=== PATIENT | female | born 1955 | race African-American/Black ===

== ENCOUNTER → 2016-08-03 | Outpatient (CLI) | payer OTHER ==
[2016-08-03] VITALS (8 sets, daily range): BP systolic 93–148; BP diastolic 60–81
[~2016-08-03] VITALS: Ht 165.1 cm; Wt 92.5 kg
[~2016-08-03] MED LIST: ALBU8.5H6 INH; CARV3.12 PO; CELE200C PO; CHOL10003 PO; DOCU-27 PO; FAMOTIDINE 20 MG/2 ML VIAL IVP ONE; FAMOTIDINE 20 MG/2 ML VIAL ONE; FURO40TA4 PO; HYDR-2666 PO; IBUP-1027 PO; IBUP-1060 PO; IBUP200T77 PO; IOHEXOL 300 MG/ML 100ML VIAL. IART ONE; IOHEXOL 300 MG/ML 100ML VIAL. ONE; IV 1/2 NORMAL SALINE 1,000 ML IV SCH; LIDOCAINE 2% 20 ML VIAL. IJ ONE; LIDOCAINE 2% 20 ML VIAL. ONE; LOSA50TA6 PO; METF500T4 PO; MIDAZOLAM HCL/PF 5 MG/5 ML VIAL. IV ONE; MIDAZOLAM HCL/PF 5 MG/5 ML VIAL. ONE; MULT-460 PO; Methocarbamol PO; NAPR500T3 PO; NITROGLYCERIN SUBLINGUAL 0.4 MG BOTTLE OF 25. SL PRN; OMEG1CAP38 PO; OXYC10TA PO; Oxycodone Hcl/Acetaminophen PO; POTASSIUM CHLO10 MEQ PO; TRIA15CR2 TP; TRIA1TAB3 PO; UBID100T5 PO; WARF-78 PO; diphenhydrAMINE 50 MG/ML VIAL IVP ONE; diphenhydrAMINE 50 MG/ML VIAL ONE; fentaNYL PF VIAL 250 MCG/5 ML VIAL IV ONE; fentaNYL PF VIAL 250 MCG/5 ML VIAL ONE; hormone troche; methylPREDNISolone SOD SUCC PF 125 MG/2 ML VIAL. IV ONE; methylPREDNISolone SOD SUCC PF 125 MG/2 ML VIAL. ONE
[2016-08-03 09:34] LABS: HEMATOCRIT 42.4 % (36.0-47.0); HEMOGLOBIN 14.9 g/dL (12.0-15.5); RED BLOOD COUNT 4.41 x10^6/uL (3.50-5.40); RED CELL DISTRIBUTION WIDTH 12.9 % (11.5-14.5); WHITE BLOOD COUNT 7.1 x10^3/uL (4.0-11.0)
[2016-08-03 09:56] LABS: PROTHROMBIN TIME PATIENT 12.7 SEC (11.7-14.0)
[2016-08-03 10:04] LABS: CALCIUM 9.5 mg/dL (8.5-10.1); CREATININE 0.6 mg/dL (0.6-1.0); GFR 123.8; POTASSIUM 3.8 mmol/L (3.5-5.1)
--- NOTE | 2016-08-03 12:35 | PDOC ---
MODERATE SEDATION ASSESSMENT RISKS/ALTERNATIVES Risks/Alternatives Risks and alternatives of this type of sedation and procedure discussed with: RISK/ALTERNATIVES: Patient H & P ON CHART H & P H & P on chart and reviewed for co-morbid conditions and appropriate labs. H&P ON CHART: Yes STATUS PREG STATUS ASSESSED: N/A MEDS/ALLERGIES REVIEWED Meds/Allergies Reviewed Medications and Allergies including time and route of recently administered narcotics and sedatives. MEDS/ALLERGIES REVIEWED: Yes ASA RATING ASA RATING: II AIRWAY ASSESSMENT Airway Assessment Airway patency, oral function limitations, presence of caps, crowns, dentures, partials, and ability to extend neck assessed. AIRWAY ASSESSMENT: Yes MALLAMPATI SCORE MALLAMPATI SCORE: II PRE-SEDATION ASSESSMENT PRE-SEDATION ASSESSMENT: Yes ROBERTO SHAIKH MD August 03, 2016 12:35
--- NOTE | 2016-08-03 12:50 | CARD ---
APPROVED REPORT Procedure(s) performed: Right and left heart catheterization, selective coronary angiography and left ventriculography INDICATION The indication(s) include : Dyspnea on exertion concerning for unstable angina, cardiomyopathy. PROCEDURE NARRATIVE After explaining the risks, benefits and alternative options, informed consent was obtained from danita ent. Patient brought to the cardiac [facility] and her right groin was prepped and draped in the usual fashion. 20 mL of 2% lidocaine was infiltrated into the skin and subcutaneous tissues for local anest hesia. Arterial and venous accesses were obtained in the right common femoral artery and vein respect ively and 6 and 8 Togolese sheaths were inserted. A 7.5 Togolese Kent-Danica catheter was advanced through the venous sheath under fluoroscopic guidance and intracardiac pressures, oxygen saturations and card iac output by thermodilution method were recorded. Subsequently, 6 Togolese JL 4 and 6 Togolese JR4 lelia ters were advanced through the arterial sheath and selective angiography of the left and right smith ry arteries was performed. Finally, 6 Togolese pigtail catheter was used to perform left ventriculograp hy. Patient tolerated the procedure well. Hemostasis in the right groin was achieved using Angio-Seal and manual compression. There were no immediate complications. FINDINGS A. RIGHT HEART CATHETERIZATION 1. Intracardiac Pressures: Mean right atrial pressure 8 mmHg, right ventricular pressure 43/6 mmHg, mean primary H pressure 12 mmHg, pulmonary artery pressure 34/18 mmHg, mean PA pressure 25 mm Hg. 2. Oxygen saturation: Right atrium 69%, pulmonary artery 68.6%, femoral arterial sheath 93.6%. No e vidence of intracardiac shunt. 3. Cardiac output by thermodilution method 6.15 L/m. B. LEFT HEART CATHETERIZATION 1. Hemodynamics: Left ventricle end diastolic pressure 14 mmHg. No pullback gradient across the aort ic valve. 2. Left ventriculography: Diaphragmatic wall hypokinesis with ejection fraction estimated at 40-45% . No significant mitral regurgitation seen. 3. Coronary angiography: a. The left main coronary artery arose from the left sinus of Valsalva, gave rise to the left anteri or descending and left circumflex arteries and did not show any significant stenosis. b. The left anterior descending artery did not show any significant stenosis. c. The left circumflex artery was a large and dominant vessel that did not show any significant sten osis. d. The right coronary artery was a small and nondominant vessel that did not show any significant st enosis. Conclusion 1. No significant coronary artery disease. 2. Diaphragmatic wall hypokinesis with ejection fraction estimated at 40-45%. 3. No evidence of pulmonary hypertension or intracardiac shunt. Recommendations Cardiac Risk Reduction Program Medical Therapy
== END | disposition home or self-care (01) ==
LOC: CCL 09:05
PROVIDERS: ATTEND Internal Medicine Cardiovascular Disease
DX: I20.0 Unstable angina (principal); I11.9 Hypertensive heart disease without heart failure; Z86.73 Personal history of transient ischemic attack (TIA), and cerebral infarction without residual deficits; E78.00 Pure hypercholesterolemia, unspecified; J45.909 Unspecified asthma, uncomplicated; K21.9 Gastro-esophageal reflux disease without esophagitis; M19.90 Unspecified osteoarthritis, unspecified site; E11.9 Type 2 diabetes mellitus without complications; F41.9 Anxiety disorder, unspecified; I73.9 Peripheral vascular disease, unspecified; Z90.49 Acquired absence of other specified parts of digestive tract; Z90.710 Acquired absence of both cervix and uterus; Z90.722 Acquired absence of ovaries, bilateral; Z79.01 Long term (current) use of anticoagulants
CPT/HCPCS: 36415; 80048; 85027; 85610; 85730; 93453; C1769; C1771; C1773; C1892; J1200; J2250; J2930; J3010; Q9967; S0028; 62321; 62323; G0269

== ENCOUNTER → 2017-08-31 | Outpatient (CLI) | payer OTHER | END | disposition home or self-care (01) | LOC: ECHO 10:35 | DX: I42.9 Cardiomyopathy, unspecified (principal) | CPT/HCPCS: 93306 ==

== ENCOUNTER → 2018-02-03 | Outpatient (CLI) | payer MEDICARE, OTHER ==
[2016-08-03 14:04] VITALS: BP 132/68
[~2018-02-03] MED LIST changes: +DOCU-109 PO; -DOCU-27 PO; -FAMOTIDINE 20 MG/2 ML VIAL IVP ONE; -FAMOTIDINE 20 MG/2 ML VIAL ONE; -HYDR-2666 PO; +HYDR-2758 PO; -IOHEXOL 300 MG/ML 100ML VIAL. IART ONE; -IOHEXOL 300 MG/ML 100ML VIAL. ONE; -IV 1/2 NORMAL SALINE 1,000 ML IV SCH; -LIDOCAINE 2% 20 ML VIAL. IJ ONE; -LIDOCAINE 2% 20 ML VIAL. ONE; -LOSA50TA6 PO; +LOSA50TA7 PO; +METF500T16 PO; -METF500T4 PO; -MIDAZOLAM HCL/PF 5 MG/5 ML VIAL. IV ONE; -MIDAZOLAM HCL/PF 5 MG/5 ML VIAL. ONE; +NAPR-514 PO; -NAPR500T3 PO; -NITROGLYCERIN SUBLINGUAL 0.4 MG BOTTLE OF 25. SL PRN; +POTA10TA12 PO; -POTASSIUM CHLO10 MEQ PO; -diphenhydrAMINE 50 MG/ML VIAL IVP ONE; -diphenhydrAMINE 50 MG/ML VIAL ONE; -fentaNYL PF VIAL 250 MCG/5 ML VIAL IV ONE; -fentaNYL PF VIAL 250 MCG/5 ML VIAL ONE; -methylPREDNISolone SOD SUCC PF 125 MG/2 ML VIAL. IV ONE; -methylPREDNISolone SOD SUCC PF 125 MG/2 ML VIAL. ONE
--- NOTE | 2018-02-03 16:35 | CARD ---
MR#: [id number] Date of Study: 02/03/2018 Ordering Physician: ZA GRIJALVA, Referring Physician: ZA GRIJALVA, Tech: Kendal Wood APPROVED REPORT EXAM: Two-dimensional and M-mode echocardiogram with Doppler and color Doppler. Other Information Quality : AverageHR: 82bpm INDICATION Hypertension/HCVD RISK FACTORS Diabetes Edema 2D DIMENSIONS RVDd2.2 (2.9-3.5cm)Left Atrium(2D)4.0 (1.6-4.0cm) IVSd1.2 (0.7-1.1cm)Aortic Root(2D)3.1 (2.0-3.7cm) LVDd5.0 (3.9-5.9cm)LVOT Diameter2.2 (1.8-2.4cm) PWd1.3 (0.7-1.1cm)LVDs3.6 (2.5-4.0cm) FS (%) 28.5 %SV65.1 ml Aortic Valve AoV Peak Emmanuel.134.0cm/sAoV VTI25.8cm AO Peak GR.7.2mmHgLVOT Peak Emmanuel.88.2cm/s LVOT VTI 18.95cmAO Mean GR.4mmHg LADONNA (VMAX)1.90am0PQR (VTI)2.68cm2 Mitral Valve MV E Ibpuzoxv565.2cm/sMV DECEL [id number] MV A Abosrxqa322.9cm/sMV GKB90vo E/A Ratio0.9MVA (PHT)4.69cm2 TDI E/Lateral E'13.5E/Medial E'14.6 Pulmonary Valve PV Peak Wplgkntl75.0cm/sPV Peak Grad.2mmHg Tricuspid Valve TR P. Lmgviyuj060dg/sRAP YMRFXLTH2yhRc TR Peak Gr.35vuIyHADE22ofUt Pulmonary Vein S1 Ivxazije72.1cm/sD2 Uqthsnmd52.4cm/s PVa bixwxepk593wddo LEFT VENTRICLE The left ventricle is normal size. There is borderline to mild concentric left ventricular hypertroph y. The left ventricular systolic function is normal and the ejection fraction is within normal range. The Ejection Fraction is 50-55%. There is normal LV segmental wall motion. Transmitral Doppler flow pattern is Grade I-abnormal relaxation pattern. RIGHT VENTRICLE The right ventricle is normal size. There is normal right ventricular wall thickness. The right ventr icular systolic function is normal. ATRIA The left atrium size is normal. The right atrium size is normal. The interatrial septum is intact wit h no evidence for an atrial septal defect or patent foramen ovale as noted on 2-D or Doppler imaging. AORTIC VALVE The aortic valve is not well visualized. Doppler and Color Flow revealed trace aortic regurgitation. There is no significant aortic valvular stenosis. MITRAL VALVE The mitral valve is normal in structure and function. Doppler and Color-flow revealed trace mitral re gurgitation. TRICUSPID VALVE The tricuspid valve is not well visualized. Doppler and Color Flow revealed trace tricuspid regurgita tion. PULMONIC VALVE The pulmonic valve is not well visualized. Doppler and Color Flow revealed trace pulmonic valvular re gurgitation. GREAT VESSELS The aortic root is normal in size. Normal pulmonary venous flow (Doppler). The IVC was not visualized . PERICARDIAL EFFUSION There is no evidence of significant pericardial effusion. Critical Notification Critical Value: No <Conclusion> The left ventricle is normal size. The left ventricular systolic function is normal and the ejection fraction is within normal range. The Ejection Fraction is 50-55%. There is borderline to mild concentric left ventricular hypertrophy. There is no significant aortic valvular stenosis. Doppler and Color Flow revealed trace aortic regurgitation. Doppler and Color-flow revealed trace mitral regurgitation. Doppler and Color Flow revealed trace tricuspid regurgitation. Signed by : Arjun Sanchez MD Electronically Approved : 02/03/2018 16:35:01
== END | disposition home or self-care (01) ==
LOC: ECHO 12:57
PROVIDERS: ATTEND General Practice
DX: I11.9 Hypertensive heart disease without heart failure (principal); E11.9 Type 2 diabetes mellitus without complications
CPT/HCPCS: 93306

== ENCOUNTER → 2019-08-06 | Outpatient (CLI) | payer MEDICARE, OTHER ==
[2016-08-03 14:04] VITALS: BP 132/68
[~2019-08-06] MED LIST changes: -HYDR-2758 PO; +HYDR-2761 PO; +LOSA-73 PO; -LOSA50TA7 PO
--- NOTE | 2019-08-06 12:11 | CARD ---
MR#: [id number] Date of Study: 08/06/2019 Ordering Physician: ROBERTO SHAIKH, Referring Physician: ROBERTO SHAIKH Tech: Sandie Forde RDCS APPROVED REPORT EXAM: Two-dimensional and M-mode echocardiogram with Doppler and color Doppler. Other Information Quality : Technically Limited Technically limited study due to body habitus INDICATION Hypertension/HCVD Pre-Op 2D DIMENSIONS RVDd2.6 (2.9-3.5cm)Left Atrium(2D)4.3 (1.6-4.0cm) IVSd0.9 (0.7-1.1cm)Aortic Root(2D)2.8 (2.0-3.7cm) LVDd5.2 (3.9-5.9cm)LVOT Diameter1.9 (1.8-2.4cm) PWd1.0 (0.7-1.1cm)LVDs4.4 (2.5-4.0cm) FS (%) 15.8 %SV43.3 ml Aortic Valve AoV Peak Emmanuel.99.4cm/sAoV VTI20.2cm AO Peak GR.4.0mmHgLVOT Peak Emmanuel.80.8cm/s AO Mean GR.2mmHgAVA (VMAX)2.20cm2 LADONNA (VTI)2.50cm2 Mitral Valve MV E Hyvfngkd55.6cm/sMV DECEL FWWG757bo MV A Spiwcmff516.1cm/sE/A Ratio0.9 Tricuspid Valve TR P. Pauwvydg043fl/sRAP VBBHGRLH8xsCh TR Peak Gr.11ogQsRZMR00xqCc Pulmonary Vein S1 Maieteos30.1cm/sD2 Abqjsedi32.8cm/s LEFT VENTRICLE The left ventricle is normal size. There is normal left ventricular wall thickness. Left ventricle sy stolic function is low normal. The Ejection Fraction is 50%. There is normal LV segmental wall motion . Transmitral Doppler flow pattern is Grade I-abnormal relaxation pattern. RIGHT VENTRICLE The right ventricle is normal size. The right ventricular systolic function is normal. ATRIA The left atrium is mildly dilated. The right atrium size is normal. The interatrial septum is intact with no evidence for an atrial septal defect or patent foramen ovale as noted on 2-D or Doppler imagi ng. AORTIC VALVE The aortic valve is not well visualized but appears to be functioning normally by Doppler interrogati on. Doppler and Color Flow revealed no significant aortic regurgitation. There is no significant aort ic valvular stenosis. MITRAL VALVE The mitral valve is mildly thickened but opens well. There is no evidence of mitral valve prolapse. T here is no mitral valve stenosis. Doppler and Color-flow revealed trace to mild mitral regurgitation. TRICUSPID VALVE The tricuspid valve is normal in structure and function. Doppler and Color Flow revealed trace tricus pid regurgitation. The PA pressure was estimated at 25 mmHg. There is no tricuspid valve stenosis. PULMONIC VALVE The pulmonic valve is not well visualized. Doppler and Color Flow revealed no pulmonic valvular regur gitation. There is no pulmonic valvular stenosis. GREAT VESSELS The aortic root is normal in size. The ascending aorta is not well seen. The IVC is normal in size an d collapses >50% with inspiration. PERICARDIAL EFFUSION There is no evidence of significant pericardial effusion. Critical Notification Critical Value: No <Conclusion> The left ventricle is normal size. Left ventricle systolic function is low normal. The Ejection Fraction is 50%. There is normal LV segmental wall motion. Doppler and Color Flow revealed no significant aortic regurgitation. There is no significant aortic valvular stenosis. Doppler and Color-flow revealed trace to mild mitral regurgitation. Doppler and Color Flow revealed trace tricuspid regurgitation. The PA pressure was estimated at 25 mmHg. Signed by : Arjun Sanchez MD Electronically Approved : 08/06/2019 12:10:57
== END | disposition home or self-care (01) ==
LOC: ECHO 10:30
PROVIDERS: ATTEND Internal Medicine Cardiovascular Disease
DX: Z01.810 Encounter for preprocedural cardiovascular examination (principal); I34.0 Nonrheumatic mitral (valve) insufficiency; I10 Essential (primary) hypertension
CPT/HCPCS: 93306

== ENCOUNTER → 2019-10-31 | Outpatient (CLI) | payer MEDICARE, OTHER ==
[2016-08-03 14:04] VITALS: BP 132/68
[~2019-10-31] MED LIST changes: +APIX5TAB PO; +ATOR40TA59 PO; +DOCU-153 PO; +FENO54TA PO; +FLUT1DIS3 IH; +GLIM1TAB7 PO; +METH750T2 PO; +OXYC1TAB15 PO; +OXYC1TAB20 PO; +VENTOLIN HFA18 GM INH; -WARF-78 PO; +WARF5TAB2 PO
[2019-10-31 13:40] LABS: BASO % 1 % (0-3); EOS # 0.1 x10^3/uL (0.0-0.7); EOS % 2 % (0-3); HEMATOCRIT 40.9 % (36.0-47.0); HEMOGLOBIN 13.9 g/dL (12.0-15.5); LYMPH # 1.8 x10^3/uL (1.0-4.8); LYMPH % 27 % (24-48); MEAN CORPUSCULAR HEMOGLOBIN 33 pg (25-35); MEAN CORPUSCULAR HGB CONC 34 g/dL (31-37); MEAN CORPUSCULAR VOLUME 98 fL (79-100); MONO # 0.7 x10^3/uL (0.0-1.1); MONO % 10 % (0-9); NEUT # 4.2 x10^3/uL (1.8-7.7); NEUT % 61 % (31-73); PLATELET COUNT 255 x10^3/uL (140-400); RED BLOOD COUNT 4.16 x10^6/uL (3.50-5.40); WHITE BLOOD COUNT 6.9 x10^3/uL (4.0-11.0)
[2019-10-31 13:47] LABS: PROTHROMBIN TIME PATIENT 13.1 SEC (11.7-14.0)
[2019-10-31 14:04] LABS: ALBUMIN 3.8 g/dL (3.4-5.0); ALBUMIN/GLOBULIN RATIO 0.9 (1.0-1.7); CALCIUM 9.3 mg/dL (8.5-10.1); CREATININE 0.7 mg/dL (0.6-1.0); GFR 102.3; POTASSIUM 3.5 mmol/L (3.5-5.1); TOTAL BILIRUBIN 0.5 mg/dL (0.2-1.0)
--- NOTE | 2019-10-31 14:09 | EKG ---
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
[2019-11-01 02:09] LABS: HEMOGLOBIN A1C 8.1 % (4.8-5.6)
== END | disposition home or self-care (01) ==
LOC: SURGPAT 12:45
PROVIDERS: ATTEND Neurological Surgery
DX: Z11.59 Encounter for screening for other viral diseases (principal); M43.16 Spondylolisthesis, lumbar region; M48.062 Spinal stenosis, lumbar region with neurogenic claudication; D17.79 Benign lipomatous neoplasm of other sites; Z95.0 Presence of cardiac pacemaker
CPT/HCPCS: 36415; 80053; 83036; 85025; 85610; 85730; 87641; 93005; U0003

== ENCOUNTER 2019-11-05 06:08 | Inpatient (IN) | payer MEDICARE, OTHER ==
[~2019-11-05] VITALS: Ht 162.6 cm; Wt 106.6 kg
[~2019-11-05 06:08] MED LIST changes: -APIX5TAB PO; -ATOR40TA59 PO; +BACITRACIN 50,000 UNIT in IV NORMAL SALINE 1000ML BAG 1,000 ML IRR ONE; -DOCU-153 PO; -FENO54TA PO; -FLUT1DIS3 IH; -GLIM1TAB7 PO; -METH750T2 PO; -OXYC1TAB15 PO; -OXYC1TAB20 PO; +VANCOMYCIN 1GM IVPB FOR OMNI 250 ML IV PRN; -VENTOLIN HFA18 GM INH
[2019-11-05] MEDS ORDERED: PROPOFOL 100 ML IV ONE (06:28)
[2019-11-05] MEDS ORDERED: PROPOFOL 10 MG/ML (20ML) VIAL. IV ONE (06:30)
[2019-11-05] MEDS ORDERED: LIDOCAINE 2% PF 5 ML VIAL. ONE (06:30)
[2019-11-05] MEDS ORDERED: ROCURONIUM 50 MG/5 ML VIAL. ONE (06:31)
[2019-11-05] MEDS ORDERED: PHENYLEPHRINE 10 MG/ML VIAL. ONE ×2 (06:38→11:41)
[2019-11-05] MEDS ORDERED: HYDROmorphone 2 MG/ML VIAL IV PRN (07:00)
[2019-11-05] MEDS ORDERED: LIDOCAINE 1% PF 2 ML VIAL. ID PRN (07:00)
[2019-11-05] MEDS ORDERED: IV RINGERS,LACTATED 1000ML 1,000 ML IV SCH (07:00)
[2019-11-05] MEDS ORDERED: MORPHINE SULFATE 2 MG/ML VIAL. IV PRN (07:00)
[2019-11-05] MEDS ORDERED: PROCHLORPERAZINE 10 MG/2 ML VIAL. IV PRN (07:00)
[2019-11-05] MEDS ORDERED: fentaNYL PF VIAL 100 MCG/2 ML VIAL IV PRN (07:00)
[2019-11-05] MEDS ORDERED: ONDANSETRON PF 4 MG/2 ML VIAL. IV PRN (07:00)
[2019-11-05] MEDS ORDERED: GELATIN SPONGE SIZE 100. ONE (07:21)
[2019-11-05] MEDS ORDERED: BUPIVACAINE-EPI 0.5%-1:200000 MPF 30 ML VIAL. ONE (07:21)
[2019-11-05] MEDS ORDERED: KETOROLAC 60 MG/2 ML VIAL. ONE (07:21)
[2019-11-05] MEDS ORDERED: THROMBIN TOPICAL 20,000 UNIT SPRAY.SYRN KIT TP ONE (07:22)
[2019-11-05] MEDS: INSULIN LISPRO 100 UNIT/ML 3ML VIAL for OP,RR ONLY. SQ PRN ×2 (08:04→14:51)
[2019-11-05] MEDS ORDERED: MIDAZOLAM HCL/PF 2 MG/2 ML VIAL. ONE (08:22)
[2019-11-05] MEDS ORDERED: REMIFENTANIL 2 MG VIAL. IV ONE ×2 (08:22→11:18)
[2019-11-05] MEDS ORDERED: GLYCOPYRROLATE 1 MG/5 ML VIAL. ONE (08:27)
[2019-11-05] MEDS: CARVEDILOL 3.125 MG TABLET. PO SCH ×2 (09:00→17:04)
[2019-11-05] MEDS ORDERED: DEXAMETHASONE SOD PHOS 20 MG/5 ML VIAL. ONE (09:36)
[2019-11-05] MEDS ORDERED: DESFLURANE > 120 MINUTES IH ONE (09:36)
[2019-11-05] MEDS ORDERED: KETOROLAC 30 MG/ML VIAL. ONE (09:37)
[2019-11-05] MEDS ORDERED: ACETAMINOPHEN 325 MG TABLET. PO PRN (10:30)
[2019-11-05] MEDS ORDERED: CALCIUM CARBONATE 500 MG TAB.CHEW PO PRN (10:30)
[2019-11-05] MEDS ORDERED: NALOXONE 0.4 MG/ML VIAL. IV PRN (10:30)
[2019-11-05] MEDS ORDERED: oxyCODONE/APAP 5/325 1 TAB TABLET PO PRN (10:30)
[2019-11-05] MEDS ORDERED: METHOCARBAMOL 750 MG TABLET PO PRN (10:30)
[2019-11-05] MEDS ORDERED: 0.9 % SODIUM CHLORIDE 10 ML DISP.SYRIN. IV PRN (10:30)
[2019-11-05] MEDS ORDERED: MAGNESIUM HYDROXIDE 2,400 MG/30 ML ORAL.SUSP. PO PRN (10:30)
[2019-11-05] MEDS ORDERED: MAG HYDROX/ALUMINUM HYD/SIMETH 30 ML ORAL.SUSP PO PRN (10:30)
[2019-11-05] MEDS ORDERED: ONDANSETRON PF 4 MG/2 ML VIAL. ONE (10:36)
--- NOTE | 2019-11-05 11:13 | RAD ---
EXAM: Lumbar spine CT without contrast. HISTORY: Lumbar stenosis. TECHNIQUE: Computed tomographic images of the lumbar spine were obtained without contrast. Multiplanar reformatting was performed. *One or more of the following individualized dose reduction techniques were utilized for this examination: 1. Automated exposure control. 2. Adjustment of the mA and/or kV according to patient size. 3. Use of iterative reconstruction technique. COMPARISON: None. FINDINGS: There is mild S-shaped lumbar scoliosis. There is grade 1 anterolisthesis of L2 on L3, measuring 6 mm. There is degenerative endplate remodeling with disc space narrowing, osteophytosis and vacuum phenomenon at L2-S1. There is no fracture. There is no suspicious osseous lesion. There is degenerative subchondral sclerosis and vacuum phenomenon involving the left greater than right sacroiliac joints. There is a right greater than left basilar pleural parenchymal scarring. At L1-L2, there is a disc bulge. There is moderate right and severe left facet arthropathy. There is hypertrophy of the ligamentum flavum. There is mild right foraminal stenosis. There is mild central canal stenosis. At L2-L3, there is a broad-based posterior central disc protrusion with slight superior extrusion superimposed on a disc bulge and endplate osteophytosis. There is severe bilateral facet arthropathy. There is grade 1 anterolisthesis. There is severe bilateral foraminal and central canal stenosis. At L3-L4, there is a disc bulge and endplate osteophytosis. There is moderate right and mild left facet arthropathy. There is moderate right and mild left foraminal stenosis. There is mild central canal stenosis. At L4-L5, there is a left paracentral to lateral recess disc osteophyte complex with superior extrusion superimposed on a disc bulge and endplate osteophytosis. There is moderate bilateral facet arthropathy. There is severe right and moderate left foraminal stenosis. There is moderate to severe central canal stenosis. At L5-S1, there is a disc bulge and endplate osteophytosis. There is moderate right and mild left facet arthropathy. There is severe bilateral foraminal stenosis. There is mild central canal stenosis. IMPRESSION: 1. Multilevel degenerative change involving the lumbar spine, described in detail above. This is associated with mild right foraminal and central canal stenosis at L1-L2, severe bilateral foraminal and central canal stenosis at L2-L3, moderate right and mild left foraminal and mild central canal stenosis at L3-L4, severe right and moderate left foraminal and moderate to severe central canal stenosis at L4-L5, and severe bilateral foraminal and mild central canal stenosis at L5-S1. 2. Grade 1 anterolisthesis of L2 on L3 and mild S-shaped scoliosis. Electronically signed by: Brigitte Slaughter MD (11/05/2019 11:11 AM) [id number]
--- NOTE | 2019-11-05 11:54 | HP ---
ADMIT DATE: 11/05/2019 DATE OF SURGERY: 11/05/2019. HISTORY OF PRESENT ILLNESS: The patient is a pleasant 64-year-old who has difficulty with low back pain and pain in the left buttock, lateral thigh on the left. She said that in 2014 she had previous surgery at L2-L3, which helped with that leg pain, but she has always had back pain following that surgery. She relates that her back pain is slowly worsening and now reaches a 10/10 when she is standing. She is in physical therapy without help. She has had 2 epidural steroid injections that have not helped her. PAST MEDICAL HISTORY: Arthritis, blood clots, chest pain, heart disease, and hypertension. PAST SURGICAL HISTORY: Right knee arthroscopic cholecystectomy, hysterectomy, and lumbar laminectomy, L2-3 in 12/2014. FAMILY HISTORY: Cancer, diabetes, heart disease, hypertension, and spine problems. SOCIAL HISTORY: Retired. . Does not smoke. Previously smoked. Drinks alcoholic beverages 1 time per week. ALLERGIES: PENICILLIN, SHELLFISH, AND METALS. CURRENT MEDICATIONS: Tylenol, metformin, potassium, carvedilol, furosemide, losartan, and triamterene. REVIEW OF SYSTEMS: A 12-point review of systems was obtained and is noncontributory except that mentioned above. PHYSICAL EXAMINATION: NEUROSURGERY EXAMINATION: GENERAL APPEARANCE: Alert, pleasant, no acute distress. HEAD: Normocephalic and atraumatic. SKIN: Warm and dry. Well-healed lumbar incision. MUSCULOSKELETAL: Lumbar paraspinal muscle bulk is normal, restricted range of motion of the lumbar spine, tljq-hp-vbpudnqd tenderness of the lower lumbar spine on palpation, normal range of motion of the lower extremities bilaterally. EXTREMITIES: No clubbing, cyanosis, or edema. NEUROLOGIC: Alert and oriented x 3, normal recent and remote memory. Strength 5/5 in bilateral lower extremities, sensory was intact to light touch in lower extremities bilaterally. Reflexes are present and symmetric in bilateral lower extremities, negative straight leg raising bilaterally, normal gait. IMAGING: I reviewed a lumbar MRI scan from 05/24/2019. On that study, there is partial laminectomy at L2-3 along with a grade 1 anterolisthesis. There is diffuse epidural lipomatosis present throughout the lumbar spine. There is severe central canal stenosis at L2-3. ASSESSMENT/ PLAN: At this point, I feel she has symptomatic lumbar spinal stenosis at L2-3. I am planning to moderately enlarge the previous laminectomy and combine this with an instrumented lumbar fusion. I did speak with her about the surgery and the risks. She understands. She would like to go ahead. We will make the arrangements. BETZY LARRY MD DR: NICKY/alma JOB#: [id number] / [id number] JAVON
[2019-11-05] MEDS ORDERED: HYDROmorphone 2 MG/ML VIAL ONE (12:13)
[2019-11-05] MEDS ORDERED: NEOSTIGMINE METHYLSULFATE 5 MG/5 ML SYRINGE. ONE (12:15)
[2019-11-05] MEDS ORDERED: PROPOFOL 50 ML IV ONE (12:38)
[2019-11-05] MEDS ORDERED: fentaNYL PF VIAL 100 MCG/2 ML VIAL ONE (15:10)
[2019-11-05] MEDS: fentaNYL PF VIAL 100 MCG/2 ML VIAL IV PRN ×2 (15:15→15:31)
[2019-11-05 15:45] VITALS: BP 116/66
--- NOTE | 2019-11-05 15:58 | NUR ---
Arrived to unit by bed from PACU. Drowsy but awakens easily. No c/o at this time. Lower back dressing d/i. Moves all extremities easily, wiggles toes easily, warm touch and pedal pulses + bilaterally. IVF's intact and infusing. O2 at 2l per n/c and O2 sat at 94%. ADELA's and MARLEN's on bilaterally. Side rails up x's 2 with call light in reach. Spouse at bedside. Cont. monitor.
[2019-11-05 16:00] VITALS: BP 125/63
[2019-11-05] MEDS ORDERED: TRIAMCINOLONE ACETONIDE 0.1% TOPICAL CREAM 15GM TUBE. TP PRN (16:03)
[2019-11-05 16:15] VITALS: BP 124/61
[2019-11-05 16:30] VITALS: BP 135/62
[2019-11-05] MEDS: metFORMIN 500 MG TABLET PO SCH (17:00)
--- NOTE | 2019-11-05 17:00 | NUR ---
Ambulated to chair with standby assist. Tolerated it well. Stated it felt good to stand up. Cont. monitor. Spouse at bedside.
[2019-11-05] MEDS: fentaNYL PF VIAL 100 MCG/2 ML VIAL IVP PRN (17:19)
[2019-11-05] MEDS ORDERED: POLYVINYL ALCOHOL 1.4% OPHTH SOLUTION 15ML BOTTLE. OU PRN (18:00)
[2019-11-05 19:00] VITALS: BP 143/58
[2019-11-05] MEDS: DOCUSATE SODIUM 100 MG CAPSULE. PO SCH (20:42)
[2019-11-05] MEDS: POTASSIUM CL 20MEQ D5-0.45NACL 1,000 ML IV SCH (20:44)
[2019-11-05] MEDS ORDERED: VANCOMYCIN 1 GM in IV NORMAL SALINE 250ML 250 ML IV ONE (21:00)
[2019-11-05 23:00] VITALS: BP 117/53
[2019-11-06] MEDS: fentaNYL PF VIAL 100 MCG/2 ML VIAL IVP PRN ×5 (02:18→19:13)
[2019-11-06 03:00] VITALS: BP 113/56
[2019-11-06] MEDS: POTASSIUM CL 20MEQ D5-0.45NACL 1,000 ML IV SCH ×2 (05:50→19:10)
[2019-11-06 07:00] VITALS: BP 103/55
[2019-11-06] MEDS: DOCUSATE SODIUM 100 MG CAPSULE. PO SCH ×2 (08:42→21:23)
[2019-11-06] MEDS: POTASSIUM CHLORIDE 10 MEQ TABLET.ER. PO SCH (08:42)
[2019-11-06] MEDS: FUROSEMIDE 40 MG TABLET. PO SCH (08:43)
[2019-11-06] MEDS: CARVEDILOL 3.125 MG TABLET. PO SCH ×2 (08:43→16:50)
[2019-11-06] MEDS: metFORMIN 500 MG TABLET PO SCH ×2 (08:43→16:50)
[2019-11-06] MEDS: TRIAMTERENE/HCTZ 37.5/25MG TABLET. PO SCH (08:43)
[2019-11-06] MEDS: oxyCODONE/APAP 5/325 1 TAB TABLET PO PRN ×4 (08:44→21:24)
[2019-11-06 11:00] VITALS: BP 127/61
--- NOTE | 2019-11-06 13:31 | PDOC ---
PROGRESS NOTES Date of Service DATE: 11/06/19 TIME: 13:28 Subjective Subjective POD #1 s/p lami L2-3 with instrumented fusion up ambulating in room legs feel good, c/o back / incisional pain and mild right hip numbness Objective Objective Vital Signs Date Time Temp Pulse Resp B/P (MAP) Pulse Ox O2 Delivery O2 Flow Rate FiO2 11/06/19 12:57 Room Air 11/06/19 11:00 98.0 54 18 127/61 (83) 90 98.0 11/05/19 16:30 2.0 Intake and Output 11/06/19 07:00 Intake Total 2210 ml Output Total 90 ml Balance 2120 ml Intake Oral 1010 ml IV Total 1200 ml Output Urine Total 60 ml Estimated Blood Loss 30 ml # Voids 2 Physical Exam General: Alert, Oriented X3, Cooperative MUSCULOSKELETAL: Other (SUTTON) Skin: Other (dressing changed per RN, dry and intact) Plan Plan of Care continue PT encouraged increased activity as tolerated will likely need SNF Comment Review of Relevant I have reviewed the following items casey (where applicable) has been applied. Labs Laboratory Tests Test 11/05/19 07:54 11/05/19 10:46 11/05/19 13:01 11/05/19 14:44 Glucose (Fingerstick) 169 mg/dL (70-99) 151 mg/dL (70-99) 200 mg/dL (70-99) 227 mg/dL (70-99) Test 11/05/19 16:45 11/05/19 21:03 11/06/19 07:49 11/06/19 12:23 Glucose (Fingerstick) 216 mg/dL (70-99) 202 mg/dL (70-99) 202 mg/dL (70-99) 245 mg/dL (70-99) Laboratory Tests Test 11/05/19 14:44 11/05/19 16:45 11/05/19 21:03 11/06/19 07:49 Glucose (Fingerstick) 227 mg/dL (70-99) 216 mg/dL (70-99) 202 mg/dL (70-99) 202 mg/dL (70-99) Test 11/06/19 12:23 Glucose (Fingerstick) 245 mg/dL (70-99) Medications Current Medications Ondansetron HCl (Zofran) 4 mg PRN Q6HRS PRN IV NAUSEA/VOMITING; Start 11/05/19 at 07:00; Stop 11/05/19 at 20:00; Status DC Fentanyl Citrate (Fentanyl 2ml Vial) 25 mcg PRN Q5MIN PRN IV MILD PAIN 1-3; Start 11/05/19 at 07:00; Stop 11/05/19 at 20:00; Status DC Fentanyl Citrate (Fentanyl 2ml Vial) 50 mcg PRN Q5MIN PRN IV MODERATE TO SEVERE PAIN Last administered on 11/05/19at 15:31; Start 11/05/19 at 07:00; Stop 11/05/19 at 20:00; Status DC Morphine Sulfate (Morphine Sulfate) 1 mg PRN Q10MIN PRN IV SEVERE PAIN 7-10; Start 11/05/19 at 07:00; Stop 11/05/19 at 20:00; Status DC Ringer's Solution 1,000 ml @ 30 mls/hr Q24H IV Last administered on 11/05/19at 06:50; Start 11/05/19 at 07:00; Stop 11/05/19 at 18:59; Status DC Lidocaine HCl (Xylocaine-Mpf 1% 2ml Vial) 2 ml PRN 1X PRN ID PRIOR TO IV START; Start 11/05/19 at 07:00; Stop 11/05/19 at 20:00; Status DC Hydromorphone HCl (Dilaudid) 0.5 mg PRN Q10MIN PRN IV SEV PAIN, Second choice; Start 11/05/19 at 07:00; Stop 11/05/19 at 20:00; Status DC Prochlorperazine Edisylate (Compazine) 5 mg PACU PRN PRN IV NAUSEA, MRX1; Start 11/05/19 at 07:00; Stop 11/05/19 at 20:00; Status DC Vancomycin HCl 250 ml @ 250 mls/hr 1X PREOP PRN IV PRIOR TO PROCEDURE Last administered on 11/05/19at 09:00; Start 11/05/19 at 06:00; Stop 11/05/19 at 18:00; Status DC Bacitracin 66436 unit/Sodium Chloride 1,000 ml @ 1,000 mls/hr 1X ONCE IRR Last administered on 11/05/19at 09:52; Start 11/05/19 at 06:00; Stop 11/05/19 at 06:59; Status DC Propofol 100 ml @ As Directed STK-MED ONCE IV ; Start 11/05/19 at 06:28; Stop 11/05/19 at 06:28; Status DC Propofol (Diprivan) 200 mg STK-MED ONCE IV ; Start 11/05/19 at 06:30; Stop 11/05/19 at 06:31; Status DC Lidocaine HCl (Lidocaine Pf 2% Vial) 5 ml STK-MED ONCE .ROUTE ; Start 11/05/19 at 06:30; Stop 11/05/19 at 06:31; Status DC Rocuronium [place] (Zemuron) 50 mg STK-MED ONCE .ROUTE ; Start 11/05/19 at 06:31; Stop 11/05/19 at 06:31; Status DC Phenylephrine HCl (Raymon-Synephrine Inj) 10 mg STK-MED ONCE .ROUTE ; Start 11/05/19 at 06:38; Stop 11/05/19 at 06:38; Status DC Gelatin (Gelfoam Size 100) 1 each STK-MED ONCE .ROUTE Last administered on 11/05/19at 09:52; Start 11/05/19 at 07:21; Stop 11/05/19 at 07:21; Status DC Bupivacaine HCl/ Epinephrine Bitart (Sensorcain-Epi 0.5%-1:414060 Mpf) 30 ml STK-MED ONCE .ROUTE Last administered on 11/05/19at 09:52; Start 11/05/19 at 07:21; Stop 11/05/19 at 07:21; Status DC Ketorolac Tromethamine (Toradol Im) 60 mg STK-MED ONCE .ROUTE Last administered on 11/05/19at 09:52; Start 11/05/19 at 07:21; Stop 11/05/19 at 07:21; Status DC Thrombin 20,000 unit STK-MED ONCE TP Last administered on 11/05/19at 09:52; Start 11/05/19 at 07:22; Stop 11/05/19 at 07:22; Status DC Insulin Human Lispro (HumaLOG VIAL for OP,RR ONLY) 0-10 units PRN Q1HR PRN SQ PER PROTOCOL Last administered on 11/05/19at 14:51; Start 11/05/19 at 08:00; Stop 11/06/19 at 07:59; Status DC Midazolam HCl (Versed) 2 mg STK-MED ONCE .ROUTE ; Start 11/05/19 at 08:22; Stop 11/05/19 at 08:22; Status DC Remifentanil HCl (Ultiva) 2 mg STK-MED ONCE IV ; Start 11/05/19 at 08:22; Stop 11/05/19 at 08:22; Status DC Glycopyrrolate (Robinul) 1 mg STK-MED ONCE .ROUTE ; Start 11/05/19 at 08:27; Stop 11/05/19 at 08:28; Status DC Dexamethasone Sodium Phosphate (Decadron) 20 mg STK-MED ONCE .ROUTE ; Start 11/05/19 at 09:36; Stop 11/05/19 at 09:36; Status DC Desflurane (Suprane) 90 ml STK-MED ONCE IH ; Start 11/05/19 at 09:36; Stop 11/05/19 at 09:36; Status DC Ketorolac Tromethamine (Toradol 30mg Vial) 30 mg STK-MED ONCE .ROUTE ; Start 11/05/19 at 09:37; Stop 11/05/19 at 09:38; Status DC Carvedilol (Coreg) 3.125 mg BIDWMEALS PO Last administered on 11/06/19at 08:43; Start 11/05/19 at 09:00 Furosemide (Lasix) 40 mg DAILY PO Last administered on 11/06/19at 08:43; Start 11/06/19 at 09:00 Metformin HCl (Glucophage) 500 mg BIDWMEALS PO Last administered on 11/06/19at 08:43; Start 11/05/19 at 17:00 Potassium Chloride (Klor-Con) 10 meq DAILY PO Last administered on 11/06/19at 08:42; Start 11/06/19 at 09:00 Triamterene/HCTZ (Maxzide 37.5/ 25mg) 1 tab DAILY PO Last administered on 11/06/19at 08:43; Start 11/06/19 at 09:00 Triamcinolone Acetonide (Kenalog 0.1%) 1 sherie PRN DAILY PRN TP RASH; Start 11/05/19 at 16:03 Fentanyl Citrate (Fentanyl 2ml Vial) 50 mcg PRN Q2HR PRN IVP PAIN Last administered on 11/06/19at 11:32; Start 11/05/19 at 10:30 Acetaminophen (Tylenol) 650 mg PRN Q6HRS PRN PO TEMP > 100.3'F; Start 11/05/19 at 10:30 Al Hydroxide/Mg Hydroxide (Mylanta Plus Xs) 30 ml PRN Q3HRS PRN PO HEARTBURN / GAS; Start 11/05/19 at 10:30 Calcium Carbonate/ Glycine (Tums) 500 mg PRN Q3HRS PRN PO INDIGESTION; Start 11/05/19 at 10:30 Diphenhydramine HCl (Benadryl) 25 mg PRN Q6HRS PRN PO ITCHING; Start 11/05/19 at 10:30 Naloxone HCl (Narcan) 0.1 mg PRN Q2MIN PRN IV SEE COMMENTS; Start 11/05/19 at 10:30 Sodium Chloride (Normal Saline Flush) 3 ml QSHIFT PRN IV AFTER MEDS AND BLOOD DRAWS; Start 11/05/19 at 10:30 Potassium Chloride/Dextrose/ Sod Cl 1,000 ml @ 75 mls/hr [id number] IV Last administered on 11/06/19at 05:50; Start 11/05/19 at 16:30 Oxycodone/ Acetaminophen (Percocet 5/325) 1 tab PRN Q4HRS PRN PO MILD PAIN, 1ST CHOICE Last administered on 11/06/19at 03:29; Start 11/05/19 at 10:30 Oxycodone/ Acetaminophen (Percocet 5/325) 2 tab PRN Q4HRS PRN PO MODERATE PAIN, SEVERE PAIN Last administered on 11/06/19at 12:57; Start 11/05/19 at 10:30 Methocarbamol (Robaxin) 750 mg PRN TID PRN PO MUSCLE SPASMS Last administered on 11/06/19at 02:17; Start 11/05/19 at 10:30 Docusate Sodium (Colace) 100 mg BID PO Last administered on 11/06/19at 08:42; Start 11/05/19 at 21:00 Magnesium Hydroxide (Milk Of Magnesia) 2,400 mg PRN Q12HR PRN PO CONSTIPATION; Start 8/17/20 at 10:30 Vancomycin HCl 1 gm/Sodium Chloride 250 ml @ 166.667 mls/hr 1X ONCE IV Last administered on 11/05/19at 20:44; Start 11/05/19 at 21:00; Stop 11/05/19 at 22:29; Status DC Ondansetron HCl (Zofran) 4 mg STK-MED ONCE .ROUTE ; Start 11/05/19 at 10:36; Stop 11/05/19 at 10:36; Status DC Remifentanil HCl (Ultiva) 2 mg STK-MED ONCE IV ; Start 11/05/19 at 11:18; Stop 11/05/19 at 11:19; Status DC Phenylephrine HCl (Raymon-Synephrine Inj) 10 mg STK-MED ONCE .ROUTE ; Start 11/05/19 at 11:41; Stop 11/05/19 at 11:41; Status DC Hydromorphone HCl (Dilaudid) 2 mg STK-MED ONCE .ROUTE ; Start 11/05/19 at 12:13; Stop 11/05/19 at 12:13; Status DC Neostigmine [place] (Neostigmine Methylsulfate) 5 mg STK-MED ONCE .ROUTE ; Start 11/05/19 at 12:15; Stop 11/05/19 at 12:15; Status DC Propofol 50 ml @ As Directed STK-MED ONCE IV ; Start 11/05/19 at 12:38; Stop 11/05/19 at 12:38; Status DC Fentanyl Citrate (Fentanyl 2ml Vial) 100 mcg STK-MED ONCE .ROUTE ; Start 11/05/19 at 15:10; Stop 11/05/19 at 16:00; Status DC Glycerin/ Hypromellose/ Polyethylene (Artificial Tears) 1 drop PRN Q15MIN PRN OU DRY EYE; Start 11/05/19 at 18:00 Active Scripts Active Reported [hormone bj] Triamcinolone Acetonide 0.025% Cream (Triamcinolone Acetonide) 15 Gm Cream..g. 1 [place] TP DAILY PRN Potassium Chloride (Potassium Chloride) 10 Meq Capsule.er 10 Meq PO DAILY Furosemide 40 Mg Tablet 40 Mg PO DAILY Metformin Hcl 500 Mg Tablet 1 Tab PO BID Do not take for 48hours after procedure. Next dose evening dose 08/05/16 Coreg (Carvedilol) 3.125 Mg Tablet 3.125 Mg PO BID Triamterene-Hctz 37.5-25 Mg Tb (Triamterene/Hydrochlorothiazid) 1 Each Tablet 1 Tab PO DAILY Vitals/I & O Vital Sign - Last 24 Hours 11/05/19 11/05/19 11/05/19 11/05/19 14:37 14:55 15:00 15:15 Temp 99.2 99.2 99.2 99.2 99.2 99.2 Pulse 109 112 106 Resp 15 16 15 15 B/P (MAP) 132/64 72/60 114/48 Pulse Ox 97 98 99 99 O2 Delivery Simple Mask Simple Mask Simple Mask Simple Mask O2 Flow Rate 10 10 10 10.0 11/05/19 11/05/19 11/05/19 11/05/19 15:15 15:25 15:31 15:40 Temp 99.2 99.2 99.2 99.2 99.2 99.2 Pulse 105 103 102 Resp 16 16 16 16 B/P (MAP) 119/59 100/62 93/56 Pulse Ox 98 98 95 95 O2 Delivery Simple Mask Simple Mask Nasal Cannula Nasal Cannula O2 Flow Rate 10.0 10. 2.0 2.0 11/05/19 11/05/19 11/05/19 11/05/19 15:45 15:53 16:00 16:00 Temp 97.6 99.2 97.6 99.2 Pulse 103 106 105 Resp 18 16 B/P (MAP) 116/66 (83) 107/54 125/63 (83) Pulse Ox 95 96 94 97 O2 Delivery Nasal Cannula Nasal Cannula Nasal Cannula Nasal Cannula O2 Flow Rate 2.0 2.0 2.0 2.0 11/05/19 11/05/19 11/05/19 11/05/19 16:15 16:20 16:30 17:04 Pulse 100 102 96 B/P (MAP) 124/61 (82) 135/62 (86) 130/58 Pulse Ox 95 96 O2 Delivery Nasal Cannula Nasal Cannula Nasal Cannula O2 Flow Rate 2.0 2.0 2.0 11/05/19 11/05/19 11/05/19 11/05/19 17:19 17:50 19:00 19:30 Temp 98.2 98.2 Pulse 93 Resp 20 B/P (MAP) 143/58 (86) Pulse Ox 94 O2 Delivery Room Air Room Air Room Air Room Air 11/05/19 11/06/19 11/06/19 11/06/19 23:00 03:00 07:00 07:56 Temp 98.0 98.6 99.7 98.0 98.6 99.7 Pulse 102 97 100 Resp 20 20 18 B/P (MAP) 117/53 (74) 113/56 (75) 103/55 (71) Pulse Ox 91 93 90 O2 Delivery Room Air Room Air Room Air Room Air 11/06/19 11/06/19 11/06/19 11/06/19 08:00 08:43 08:44 09:44 Pulse 97 B/P (MAP) 113/56 O2 Delivery Room Air Room Air Room Air 11/06/19 11/06/19 11/06/19 11/06/19 11:00 11:32 12:02 12:57 Temp 98.0 98.0 Pulse 54 Resp 18 B/P (MAP) 127/61 (83) Pulse Ox 90 O2 Delivery Room Air Room Air Room Air Room Air Intake and Output 11/05/19 11/05/19 11/06/19 15:00 23:00 07:00 Intake Total 1200 ml 790 ml 220 ml Output Total 90 ml Balance 1110 ml 790 ml 220 ml Justicifation of Admission Dx: Justifications for Admission: Justification of Admission Dx: Yes Comments: S/P LUMBAR FUSION, PAIN CONTROL TIESHA ZURITA APRN Nov 06, 2019 13:31
[2019-11-06 15:00] VITALS: BP 132/60
[2019-11-06 19:00] VITALS: BP 134/75
[2019-11-06 22:50] VITALS: BP 128/80
[2019-11-07 03:15] VITALS: BP 108/66
[2019-11-07] MEDS: oxyCODONE/APAP 5/325 1 TAB TABLET PO PRN ×4 (05:39→21:00)
[2019-11-07] MEDS: fentaNYL PF VIAL 100 MCG/2 ML VIAL IVP PRN (07:10)
[2019-11-07 07:15] VITALS: BP 113/61
--- NOTE | 2019-11-07 07:40 | NUR ---
C/o itching. Benadryl po given. Still c/o back pain offered muscle relaxant but refused. Ice pack given. Cont. monitor.
[2019-11-07] MEDS: diphenhydrAMINE HCL 25 MG CAPSULE PO PRN ×2 (07:48→19:19)
[2019-11-07] MEDS: FUROSEMIDE 40 MG TABLET. PO SCH (09:00)
[2019-11-07] MEDS: POTASSIUM CHLORIDE 10 MEQ TABLET.ER. PO SCH (09:53)
[2019-11-07] MEDS: metFORMIN 500 MG TABLET PO SCH ×2 (09:53→17:20)
[2019-11-07] MEDS: DOCUSATE SODIUM 100 MG CAPSULE. PO SCH ×2 (09:54→20:59)
[2019-11-07] MEDS: TRIAMTERENE/HCTZ 37.5/25MG TABLET. PO SCH (09:57)
[2019-11-07 11:00] VITALS: BP 116/68
[2019-11-07] MEDS: CARVEDILOL 3.125 MG TABLET. PO SCH ×2 (13:00→17:00)
[2019-11-07 15:15] VITALS: BP 113/71
--- NOTE | 2019-11-07 16:45 | PDOC ---
PROGRESS NOTES Date of Service DATE: 11/07/19 TIME: 16:43 Subjective Subjective POD #2 sitting up in chair c/o back/ incisional pain no leg pain ambulated in [place] today Objective Objective Vital Signs Date Time Temp Pulse Resp B/P (MAP) Pulse Ox O2 Delivery O2 Flow Rate FiO2 11/07/19 15:15 98.7 97 20 113/71 (85) 94 Room Air 98.7 11/05/19 16:30 2.0 Intake and Output 11/07/19 07:00 Intake Total 660 ml Output Total 1 ml Balance 659 ml Intake Oral 660 ml Output Urine Total 1 ml # Voids 2 Physical Exam General: Alert, Oriented X3, Cooperative MUSCULOSKELETAL: Other (SUTTON) Neuro: Normal speech Skin: Other (Dressing C,D,I) Plan Plan of Care plan to dc home tomorrow with home health Comment Review of Relevant I have reviewed the following items casey (where applicable) has been applied. Labs Laboratory Tests Test 11/05/19 16:45 11/05/19 21:03 11/06/19 07:49 11/06/19 12:23 Glucose (Fingerstick) 216 mg/dL (70-99) 202 mg/dL (70-99) 202 mg/dL (70-99) 245 mg/dL (70-99) Test 11/06/19 16:47 11/06/19 21:07 11/07/19 07:28 11/07/19 11:12 Glucose (Fingerstick) 174 mg/dL (70-99) 199 mg/dL (70-99) 185 mg/dL (70-99) 185 mg/dL (70-99) Test 11/07/19 16:26 Glucose (Fingerstick) 179 mg/dL (70-99) Laboratory Tests Test 11/06/19 16:47 11/06/19 21:07 11/07/19 07:28 11/07/19 11:12 Glucose (Fingerstick) 174 mg/dL (70-99) 199 mg/dL (70-99) 185 mg/dL (70-99) 185 mg/dL (70-99) Test 11/07/19 16:26 Glucose (Fingerstick) 179 mg/dL (70-99) Medications Current Medications Ondansetron HCl (Zofran) 4 mg PRN Q6HRS PRN IV NAUSEA/VOMITING; Start 11/05/19 at 07:00; Stop 11/05/19 at 20:00; Status DC Fentanyl Citrate (Fentanyl 2ml Vial) 25 mcg PRN Q5MIN PRN IV MILD PAIN 1-3; Start 11/05/19 at 07:00; Stop 11/05/19 at 20:00; Status DC Fentanyl Citrate (Fentanyl 2ml Vial) 50 mcg PRN Q5MIN PRN IV MODERATE TO SEVERE PAIN Last administered on 11/05/19at 15:31; Start 11/05/19 at 07:00; Stop 11/05/19 at 20:00; Status DC Morphine Sulfate (Morphine Sulfate) 1 mg PRN Q10MIN PRN IV SEVERE PAIN 7-10; Start 11/05/19 at 07:00; Stop 11/05/19 at 20:00; Status DC Ringer's Solution 1,000 ml @ 30 mls/hr Q24H IV Last administered on 11/05/19at 06:50; Start 11/05/19 at 07:00; Stop 11/05/19 at 18:59; Status DC Lidocaine HCl (Xylocaine-Mpf 1% 2ml Vial) 2 ml PRN 1X PRN ID PRIOR TO IV START; Start 11/05/19 at 07:00; Stop 11/05/19 at 20:00; Status DC Hydromorphone HCl (Dilaudid) 0.5 mg PRN Q10MIN PRN IV SEV PAIN, Second choice; Start 11/05/19 at 07:00; Stop 11/05/19 at 20:00; Status DC Prochlorperazine Edisylate (Compazine) 5 mg PACU PRN PRN IV NAUSEA, MRX1; Start 11/05/19 at 07:00; Stop 11/05/19 at 20:00; Status DC Vancomycin HCl 250 ml @ 250 mls/hr 1X PREOP PRN IV PRIOR TO PROCEDURE Last administered on 11/05/19at 09:00; Start 11/05/19 at 06:00; Stop 11/05/19 at 18:00; Status DC Bacitracin 68270 unit/Sodium Chloride 1,000 ml @ 1,000 mls/hr 1X ONCE IRR Las t administered on 11/05/19at 09:52; Start 11/05/19 at 06:00; Stop 11/05/19 at 06:59; Status DC Propofol 100 ml @ As Directed STK-MED ONCE IV ; Start 11/05/19 at 06:28; Stop 11/05/19 at 06:28; Status DC Propofol (Diprivan) 200 mg STK-MED ONCE IV ; Start 11/05/19 at 06:30; Stop 11/05/19 at 06:31; Status DC Lidocaine HCl (Lidocaine Pf 2% Vial) 5 ml STK-MED ONCE .ROUTE ; Start 11/05/19 at 06:30; Stop 11/05/19 at 06:31; Status DC Rocuronium [place] (Zemuron) 50 mg STK-MED ONCE .ROUTE ; Start 11/05/19 at 06:3 1; Stop 11/05/19 at 06:31; Status DC Phenylephrine HCl (Raymon-Synephrine Inj) 10 mg STK-MED ONCE .ROUTE ; Start 11/05/19 at 06:38; Stop 11/05/19 at 06:38; Status DC Gelatin (Gelfoam Size 100) 1 each STK-MED ONCE .ROUTE Last administered on 11/05/19at 09:52; Start 11/05/19 at 07:21; Stop 11/05/19 at 07:21; Status DC Bupivacaine HCl/ Epinephrine Bitart (Sensorcain-Epi 0.5%-1:955799 Mpf) 30 ml STK-MED ONCE .ROUTE Last administered on 11/05/19at 09:52; Start 11/05/19 at 07:21; Stop 11/05/19 at 07:21; Status DC Ketorolac Tromethamine (Toradol Im) 60 mg STK-MED ONCE .ROUTE Last administered on 11/05/19at 09:52; Start 11/05/19 at 07:21; Stop 11/05/19 at 07:21; Status DC Thrombin 20,000 unit STK-MED ONCE TP Last administered on 11/05/19at 09:52; Start 11/05/19 at 07:22; Stop 11/05/19 at 07:22; Status DC Insulin Human Lispro (HumaLOG VIAL for OP,RR ONLY) 0-10 units PRN Q1HR PRN SQ PER PROTOCOL Last administered on 11/05/19at 14:51; Start 11/05/19 at 08:00; Stop 11/06/19 at 07:59; Status DC Midazolam HCl (Versed) 2 mg STK-MED ONCE .ROUTE ; Start 11/05/19 at 08:22; Stop 11/05/19 at 08:22; Status DC Remifentanil HCl (Ultiva) 2 mg STK-MED ONCE IV ; Start 11/05/19 at 08:22; Stop 11/05/19 at 08:22; Status DC Glycopyrrolate (Robinul) 1 mg STK-MED ONCE .ROUTE ; Start 11/05/19 at 08:27; Stop 11/05/19 at 08:28; Status DC Dexamethasone Sodium Phosphate (Decadron) 20 mg STK-MED ONCE .ROUTE ; Start 11/05/19 at 09:36; Stop 11/05/19 at 09:36; Status DC Desflurane (Suprane) 90 ml STK-MED ONCE IH ; Start 11/05/19 at 09:36; Stop 11/05/19 at 09:36; Status DC Ketorolac Tromethamine (Toradol 30mg Vial) 30 mg STK-MED ONCE .ROUTE ; Start 11/05/19 at 09:37; Stop 11/05/19 at 09:38; Status DC Carvedilol (Coreg) 3.125 mg BIDWMEALS PO Last administered on 11/06/19at 16:50; Start 11/05/19 at 09:00 Furosemide (Lasix) 40 mg DAILY PO Last administered on 11/06/19at 08:43; Start 11/06/19 at 09:00 Metformin HCl (Glucophage) 500 mg BIDWMEALS PO Last administered on 11/07/19at 09:53; Start 11/05/19 at 17:00 Potassium Chloride (Klor-Con) 10 meq DAILY PO Last administered on 11/07/19at 09:53; Start 11/06/19 at 09:00 Triamterene/HCTZ (Maxzide 37.5/ 25mg) 1 tab DAILY PO Last administered on 11/07/19at 09:57; Start 11/06/19 at 09:00 Triamcinolone Acetonide (Kenalog 0.1%) 1 sherie PRN DAILY PRN TP RASH; Start 11/05/19 at 16:03 Fentanyl Citrate (Fentanyl 2ml Vial) 50 mcg PRN Q2HR PRN IVP PAIN Last administered on 11/07/19at 07:10; Start 11/05/19 at 10:30 Acetaminophen (Tylenol) 650 mg PRN Q6HRS PRN PO TEMP > 100.3'F; Start 11/05/19 at 10:30 Al Hydroxide/Mg Hydroxide (Mylanta Plus Xs) 30 ml PRN Q3HRS PRN PO HEARTBURN / GAS; Start 11/05/19 at 10:30 Calcium Carbonate/ Glycine (Tums) 500 mg PRN Q3HRS PRN PO INDIGESTION; Start 11/05/19 at 10:30 Diphenhydramine HCl (Benadryl) 25 mg PRN Q6HRS PRN PO ITCHING Last administered on 11/07/19at 07:48; Start 11/05/19 at 10:30 Naloxone HCl (Narcan) 0.1 mg PRN Q2MIN PRN IV SEE COMMENTS; Start 11/05/19 at 10:30 Sodium Chloride (Normal Saline Flush) 3 ml QSHIFT PRN IV AFTER MEDS AND BLOOD DRAWS; Start 11/05/19 at 10:30 Potassium Chloride/Dextrose/ Sod Cl 1,000 ml @ 75 mls/hr [id number] IV Last administered on 11/06/19at 05:50; Start 11/05/19 at 16:30; Stop 11/07/19 at 08:00; Status DC Oxycodone/ Acetaminophen (Percocet 5/325) 1 tab PRN Q4HRS PRN PO MILD PAIN, 1ST CHOICE Last administered on 11/06/19at 03:29; Start 11/05/19 at 10:30 Oxycodone/ Acetaminophen (Percocet 5/325) 2 tab PRN Q4HRS PRN PO MODERATE PAIN, SEVERE PAIN Last administered on 11/07/19at 12:50; Start 11/05/19 at 10:30 Methocarbamol (Robaxin) 750 mg PRN TID PRN PO MUSCLE SPASMS Last administered on 11/06/19at 02:17; Start 11/05/19 at 10:30 Docusate Sodium (Colace) 100 mg BID PO Last administered on 11/07/19at 09:54; Start 11/05/19 at 21:00 Magnesium Hydroxide (Milk Of Magnesia) 2,400 mg PRN Q12HR PRN PO CONSTIPATION Last administered on 11/07/19at 07:14; Start 11/05/19 at 10:30 Vancomycin HCl 1 gm/Sodium Chloride 250 ml @ 166.667 mls/hr 1X ONCE IV Last administered on 11/05/19at 20:44; Start 11/05/19 at 21:00; Stop 11/05/19 at 22:29; Status DC Ondansetron HCl (Zofran) 4 mg STK-MED ONCE .ROUTE ; Start 11/05/19 at 10:36; Stop 11/05/19 at 10:36; Status DC Remifentanil HCl (Ultiva) 2 mg STK-MED ONCE IV ; Start 11/05/19 at 11:18; Stop 11/05/19 at 11:19; Status DC Phenylephrine HCl (Raymon-Synephrine Inj) 10 mg STK-MED ONCE .ROUTE ; Start 11/05/19 at 11:41; Stop 11/05/19 at 11:41; Status DC Hydromorphone HCl (Dilaudid) 2 mg STK-MED ONCE .ROUTE ; Start 11/05/19 at 12:13; Stop 11/05/19 at 12:13; Status DC Neostigmine [place] (Neostigmine Methylsulfate) 5 mg STK-MED ONCE .ROUTE ; Start 11/05/19 at 12:15; Stop 11/05/19 at 12:15; Status DC Propofol 50 ml @ As Directed STK-MED ONCE IV ; Start 11/05/19 at 12:38; Stop 11/05/19 at 12:38; Status DC Fentanyl Citrate (Fentanyl 2ml Vial) 100 mcg STK-MED ONCE .ROUTE ; Start at 15:10; Stop 11/05/19 at 16:00; Status DC Glycerin/ Hypromellose/ Polyethylene (Artificial Tears) 1 drop PRN Q15MIN PRN OU DRY EYE; Start 11/05/19 at 18:00 Active Scripts Active Reported [hormone bj] Triamcinolone Acetonide 0.025% Cream (Triamcinolone Acetonide) 15 Gm Cream..g. 1 [place] TP DAILY PRN Potassium Chloride (Potassium Chloride) 10 Meq Capsule.er 10 Meq PO DAILY Furosemide 40 Mg Tablet 40 Mg PO DAILY Metformin Hcl 500 Mg Tablet 1 Tab PO BID Do not take for 48hours after procedure. Next dose evening dose 08/05/16 Coreg (Carvedilol) 3.125 Mg Tablet 3.125 Mg PO BID Triamterene-Hctz 37.5-25 Mg Tb (Triamterene/Hydrochlorothiazid) 1 Each Tablet 1 Tab PO DAILY Vitals/I & O Vital Sign - Last 24 Hours 11/06/19 11/06/19 11/06/19 11/06/19 16:50 16:50 17:50 19:00 Temp 98.3 98.3 Pulse 62 101 Resp 20 B/P (MAP) 132/60 134/75 (94) Pulse Ox 93 O2 Delivery Room Air Room Air Room Air 11/06/19 11/06/19 11/06/19 11/07/19 19:13 20:15 22:50 03:15 Temp 100.1 98.4 100.1 98.4 Pulse 113 106 Resp 20 20 B/P (MAP) 128/80 (96) 108/66 (80) Pulse Ox 93 96 O2 Delivery Room Air Room Air Room Air Room Air 11/07/19 11/07/19 11/07/19 11/07/19 07:15 08:25 11:00 12:50 Temp 98.2 98.0 98.2 98.0 Pulse 90 91 Resp 20 18 B/P (MAP) 113/61 (78) 116/68 (84) Pulse Ox 96 95 O2 Delivery Room Air Room Air Room Air Room Air 11/07/19 11/07/19 11/07/19 13:00 14:00 15:15 Temp 98.7 98.7 Pulse 66 97 Resp 20 B/P (MAP) 125/45 113/71 (85) Pulse Ox 94 O2 Delivery Room Air Room Air Intake and Output 11/06/19 11/06/19 11/07/19 15:00 23:00 07:00 Intake Total 540 ml 120 ml Output Total 1 ml Balance 540 ml 120 ml -1 ml Justicifation of Admission Dx: Justifications for Admission: Justification of Admission Dx: Yes BETZY LARRY MD Nov 07, 2019 16:45
--- NOTE | 2019-11-07 17:55 | NUR ---
Pain level at 4 at this time. Cont. monitor.
[2019-11-07 19:00] VITALS: BP 117/68
[2019-11-07 23:00] VITALS: BP 118/55
[2019-11-08] MEDS: oxyCODONE/APAP 5/325 1 TAB TABLET PO PRN ×3 (04:11→12:02)
[2019-11-08] MEDS ORDERED: OXYC1TAB15 PO (06:49)
[2019-11-08] MEDS ORDERED: DOCU-153 PO (06:49)
[2019-11-08] MEDS ORDERED: METH750T2 PO (06:49)
--- NOTE | 2019-11-08 06:52 | SNU/HH DC ---
DISCHARGE WITH HOME HEALTH DISCHARGE INFORMATION: Discharge Date: Nov 08, 2019 Final Diagnosis: m48.062 lumbar stenosis m43.16 spondylolisthesis Condition on Discharge: Stable CODE STATUS: Code Status: Full HOME HEALTH: Face to Face: I certify this patient is under my care and that I, or a nurse practitioner or physician's field research assistant working with me, had a face to face encounter that meets the physician face to face encounter requirements with this patient on 11/07/19. 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 For Eval/Treatment: Yes Physical Therapy For: Evalulation/Treatment Pt Meets Homebound Status: Unsteady balance w/ amb,, Limited distance walking POST DISCHARGE ORDERS: Activity Instructions for Disc: Activity as tolerated, Avoid exertion, Other, see below (no lifting > 10 lbs) Weight Bearing Status after Di: Full weight bearing, As tolerated Bathing Instructions: Shower-keep dressing dry, No Tub Bath until see DIET AFTER DISCHARGE: ADA Wound/Incision Care: Ice to area for comfort, Keep wound/cast CDI Other wound/incision instructi: daily dressing changes as needed, no soaking FOLLOW-UP: PCP to follow Home Health: f/u with Dr. Larry in 2 weeks [phone] TREATMENT/EQUIPMENT ORDERS: Adaptive Equipment Issued: None, Jacob CERTIFICATION STATEMENT: Certification Statement: Certification Statement: Based on the above finding, I certify that this patient is confined to the home and needs intermittent correction care, physical therapy and/or speech therapy, or continues to need occupational therapy.~ This patient is under my care, and I have initiated the establishment of the plan of care.~ This patient will be followed by myself or a community physician who will periodically review the plan of care. Home Meds Reported Medications [hormone bj] No Conflict Check 08/03/16 Triamcinolone Acetonide (TRIAMCINOLONE ACETONIDE 0.025% CREAM) 15 Gm Cream..g., 1 LIGIA TP DAILY PRN for RASH, TUBE 01/10/15 Potassium Chloride (POTASSIUM CHLORIDE ) 10 Meq Capsule.er, 10 MEQ PO DAILY for SUPPLEMENT, TAB.SR 01/10/15 Furosemide (FUROSEMIDE) 40 Mg Tablet, 40 MG PO DAILY for DIURETIC, TAB 01/10/15 Metformin Hcl (METFORMIN HCL) 500 Mg Tablet, 1 TAB PO BID for DIABETES, #180 TAB 3 Refills Do not take for 48hours after procedure. Next dose evening dose 08/05/16 01/10/15 Carvedilol (COREG ) 3.125 Mg Tablet, 3.125 MG PO BID for HEART, TAB 01/17/14 Triamterene/Hydrochlorothiazid (TRIAMTERENE-HCTZ 37.5-25 MG TB) 1 Each Tablet, 1 TAB PO DAILY for BLOOD PRESSURE, TAB 01/17/14 BETZY LARRY MD Nov 08, 2019 06:52
[2019-11-08 07:15] VITALS: BP 104/64
[2019-11-08] MEDS: TRIAMTERENE/HCTZ 37.5/25MG TABLET. PO SCH (07:59)
[2019-11-08] MEDS: DOCUSATE SODIUM 100 MG CAPSULE. PO SCH (07:59)
[2019-11-08] MEDS: metFORMIN 500 MG TABLET PO SCH (08:00)
[2019-11-08] MEDS: FUROSEMIDE 40 MG TABLET. PO SCH (08:00)
[2019-11-08] MEDS: POTASSIUM CHLORIDE 10 MEQ TABLET.ER. PO SCH (08:00)
[2019-11-08] MEDS: CARVEDILOL 3.125 MG TABLET. PO SCH (08:05)
[2019-11-08 11:10] VITALS: BP 133/80
--- NOTE | 2019-11-08 15:25 | NUR ---
reviewed discharge instructions with Romelia. reviewed restrictions to activities of daily living Urbano hose, medications and follow up with Dr. Hagan. instructed and demonstrated dressing changes; dressings and chlor prep provided. scripts given to Romelia. all questions answered. brace on dismissed to home.
--- NOTE | 2019-11-08 18:06 | PATHOLOGY ---
[facility] Accession Number: [id number] . 01 Material submitted: . vertebral column - LUMBAR DECOMPRESSION . 01 Clinical history: . LUMBAR SPONDYLOLISTHESIS, EPIDURAL LIPOMATOSIS, STENOSIS, LUMBAR LAMINECTOMY L2-3, POSTERIOR LATERAL FUSION AND POST INTR L2-3 . 02 Diagnosis: Segments of fibrocartilaginous and fibroadipose tissue and bone, lumbar decompression: - Degenerative changes of fibrocartilaginous tissue. (JPM:rony; 11/08/2019) R 11/08/2019 1558 Local . 02 Comment: There is no evidence of an acute inflammatory process or malignancy. (JPM:rony; 11/08/2019) . 02 Electronically signed: . Trey Guerra MD, Pathologist NPI- [id number] . 01 Gross description: . The specimen is received in formalin, labeled "Romelia Arcos, lumbar decompression" and consists of multiple segments of soft and fibrous pink-lagos tissue, and bone measuring 4.0 x 3.4 x 0.6 cm in aggregate. A patient services representative portion is submitted in A1 following decalcification. (SDY; 11/06/2019) SYU/SYU 11/06/2019 1735 Local . 02 Pathologist provided ICD-10: M43.16, E88.2 . 02 CPT . 139542, [id number] Specimen Comment: A courtesy copy of this report has been sent to [phone], [phone] Specimen Comment: [phone] Specimen Comment: Report sent to / DR MONTERO Performed at: [address], [place], [place] [id number] MD Vinod Padilla MD Phone: [phone] Performed at: 02 [facility] [address] [place], [place] [id number] MD Trey Guerra MD Phone: [phone]
--- NOTE | 2019-11-08 20:57 | OP ---
DATE OF SURGERY: 11/05/2019 PREOPERATIVE DIAGNOSIS: Severe lumbar spinal stenosis and spondylolisthesis, L2-L3. POSTOPERATIVE DIAGNOSIS: Severe lumbar spinal stenosis and spondylolisthesis, L2-L3. OPERATION PERFORMED: 1. Left direct laminectomy, L2-L3. 2. Posterior instrumentation, L2-L3. 3. Posterolateral fusion L2-L3 with allograft bone. The operation included bone marrow aspirate, fluoroscopy, microscopic dissection, BrainLAB guidance. SURGEON: Abdoulaye Larry M.D. COAL MINE INSPECTOR: Jodi Hinojosa APRN assisted with the surgery. She assisted with the exposure, microscopic decompression, instrumentation and fusion. OPERATIVE INDICATIONS: The patient is a very pleasant 64-year-old who a number of years ago underwent surgery at L2-L3, which included a laminectomy for stenosis. She did well, but then developed recurrent symptoms and was found to have redeveloped stenosis along with a spondylolisthesis at this level. She failed conservative measures including epidural steroid injections and physical therapy and I recommended surgery with decompression and instrumented fusion. I discussed the surgery and the risks with her in detail. She understood and she wished to go ahead. DESCRIPTION OF PROCEDURE: Following general endotracheal anesthesia, the patient was positioned prone on the Marcelino table. Lumbar region prepped and draped in standard fashion. ADELA hose and AV impulse boots were applied for DVT prophylaxis. The microscope was draped. Fluoroscopy was draped and brought into the field. Monitoring was established. Vancomycin 1 g was given prior to surgery. Using fluoroscopic guidance, a midline incision, which was made previously was reopened. I dissected down through skin and subcutaneous tissue, reflected the paraspinal muscles and exposed the spinous processes, lamina and facets of L2 and L3. I did work laterally over the lateral aspect of the facets and exposed the transverse processes. At this point, getting on the left side, I used the BrainLAB system, which I had initialized by placing pins in the iliac crest. Prior to the opening the skin incision, I initialized the BrainLAB system. I used the BrainLAB then to confirm anatomic landmarks and drilled into the posterior aspect of the pedicles of L2 and L3 on the left. I passed the black ball, stimulated EMG monitoring followed by ball tip probe, followed by tap again with stimulated EMG monitoring, followed by screw placement in the L2, but I covered the opening with bone wax in L3. I used the Boardvote spine system. The screw was placed, and during this time, I also excoriated the lateral aspect of the facet as well as the transverse process. I did place a Jamshidi needle into the left iliac crest. I aspirated 20 mL of bone marrow and mixed this with allograft bone, which was then packed into the left gutter. I brought in the microscope at this point and I directed my attention to the L2-L3 lamina. I drilled the lamina down and exposed the ligament and the dura. I worked superiorly, medially to create a laminectomy. I worked laterally and exposed the takeoff of the L3 root and also assured myself that the foramen at L2-L3 was widely open. This accomplished, then I assured myself that the stenosis at L2-L3 was widely decompressed. I placed a pedicle screw into L3, placed the nadine and nuts were applied, which were then torqued sequentially. I then went to the right side in a similar fashion, exposed the facets and transverse processes. I excoriated and packed bone laterally while I drilled into the posterior aspect of the pedicles of L2 and L3. I placed screws in both L2 and L3. The nadine was placed and nuts were applied and torqued sequentially. At this point, then I had an excellent decompression. Fluoroscopic images looked quite good. I irrigated copiously. I removed the retractors and obtained hemostasis in the muscle and I closed the wound in layers with absorbable suture and skin was closed with 4-0 subcuticular stitch with frequent irrigation during my closure. The patient was awakened uneventfully, taken to recovery room in excellent condition and I was quite pleased with the surgery. ABDOULAYE LARRY MD DR: NICKY/alma JOB#: [id number] / [id number] JAVON
--- NOTE | 2019-11-29 15:49 | DS ---
DATE OF DISCHARGE: 11/08/2019 DISCHARGE DIAGNOSES: Severe lumbar spinal stenosis and spondylolisthesis, L2-L3. OPERATION PERFORMED: 1. Left direct laminectomy L2. 2. Posterior instrumentation L2-L3. 3. Posterolateral fusion L2-L3 with allograft bone. HISTORY OF PRESENT ILLNESS: The patient is a pleasant 64-year-old who a number of years ago underwent surgery at L2-L3, which included a laminectomy for stenosis. She did well, but then developed recurrent symptoms and was found to have redeveloped stenosis along with a spondylolisthesis at this level. She failed to improve with conservative measures including epidural steroid injections and physical therapy and I recommended surgery to decompress and fuse her. I discussed the surgery with her in detail and the risk. She understood and wished to go ahead. HOSPITAL COURSE: She was admitted to the floor postoperatively where she did well. She was up ambulating in the room and in the halls. Physical therapy was initiated and instruction was given to her regarding her activities. She is in good condition to discharge home with Home Health Services. DISCHARGE MEDICATIONS: She will resume her medications per the MRAD. DISCHARGE INSTRUCTIONS: She was instructed regarding incision care, activity restrictions and expectations for the next several weeks. She will follow up in our office in 2 weeks. She understands to call with any questions or concerns. BETZY LARRY MD DR: TASH/alma JOB#: [id number] / [id number] JAVON
[2019-12-07] MEDS ORDERED: APIX5TAB PO (13:26)
== END 2019-11-08 14:50 | disposition home health service (06) | DRG 460 ==
LOC: OPSVCIP 06:08 → 4 NORTH 15:59
PROVIDERS: ADMIT Neurological Surgery; ATTEND Neurological Surgery
PROC: 01NB0ZZ Release Lumbar Nerve, Open Approach (ICD-10-PCS; 2019-11-05)
PROC: 4A11X4G Monitoring of Peripheral Nervous Electrical Activity, Intraoperative, External Approach (ICD-10-PCS; 2019-11-05)
PROC: 07DR3ZZ Extraction of Iliac Bone Marrow, Percutaneous Approach (ICD-10-PCS; 2019-11-05)
PROC: 0SG0071 Fusion of Lumbar Vertebral Joint with Autologous Tissue Substitute, Posterior Approach, Posterior Column, Open Approach (ICD-10-PCS; principal; 2019-11-05 08:30)
DX: M48.062 Spinal stenosis, lumbar region with neurogenic claudication (principal); M43.16 Spondylolisthesis, lumbar region; I10 Essential (primary) hypertension; Z82.49 Family history of ischemic heart disease and other diseases of the circulatory system; Z83.3 Family history of diabetes mellitus; Z87.891 Personal history of nicotine dependence; Z90.710 Acquired absence of both cervix and uterus; M19.90 Unspecified osteoarthritis, unspecified site; Z90.49 Acquired absence of other specified parts of digestive tract; Z88.0 Allergy status to penicillin; Z91.013 Allergy to seafood; Z80.9 Family history of malignant neoplasm, unspecified
CPT/HCPCS: 36415; 72131; 76000; 82962; 86850; 86900; 86901; 88304; 88311; A7015; C1713; J1100; J1170; J1815; J1885; J2250; J2370; J2405; J2704; J2710; J3010; J3370; J3480; J3490; J7030; J7050; J7120; 97110-GP; 97116-GP; 97530-GP; 97535-GO; G0378; Q0163

== ENCOUNTER 2019-12-04 17:38 | Inpatient (IN) | payer MEDICARE, OTHER ==
[~2019-12-04] VITALS: Ht 162.6 cm; Wt 114.4 kg
[~2019-12-04 17:38] MED LIST changes: -BACITRACIN 50,000 UNIT in IV NORMAL SALINE 1000ML BAG 1,000 ML IRR ONE; +DOCU-153 PO; +METH750T2 PO; +OXYC1TAB15 PO; -VANCOMYCIN 1GM IVPB FOR OMNI 250 ML IV PRN
--- NOTE | 2019-12-04 18:24 | PHYS DOC ---
Past Medical History Past Medical History: Diabetes-Type I, High Cholesterol Past Surgical History: Cholecystectomy, Hysterectomy, Other Additional Past Surgical Histo: BREAST REDUCTION, RIGHT KNEE ARTHROSCOPY Smoking Status: Former Smoker Alcohol Use: None Drug Use: None General Adult EDM: Chief Complaint: ASTHMA HPI: HPI: 64-year-old female significant history of hypertension, coronary artery disease, COPD/asthma, who presents for the evaluation of dyspnea for the last 4 days or so. Worsened with exertion. No associated URI symptoms, fever, chest pain, palpitations, abdominal pain, nausea or vomiting. No aggravating or alleviating factors otherwise. Recent spinal surgery about 1 month ago. Review of Systems: Review of Systems: Gen: No fever, chills. Eyes: No blurred vision, diplopia. ENT: No nasal congestion, sore throat. CV: No CP, palpitations. Resp. No cough. Reports dyspnea. GI: No abd pain, N/V. : No dysuria, hematuria. Neuro: No HOLCOMB, dizziness, weakness. MSK: No myalgia, arthralgia, back pain. Skin: No acute rash or lesion. Heart Score: HEART Score for Chest Pain: HEART Score for Chest Pain Response (Comments) Value History Slighlty/Non-Suspicious 0 ECG Nonspecific Repolarizatio 1 Age >45 - < 65 1 Risk Factors 1 or 2 Risk Factors 1 Troponin >1-<3x Normal Limit 1 Total 4 Risk Factors: Risk Factors: DM, Current or recent (<one month) smoker, HTN, HLP, family history of CAD, obesity. Risk Scores: Score 0 - 3: 2.5% MACE over next 6 weeks - Discharge Home Score 4 - 6: 20.3% MACE over next 6 weeks - Admit for Clinical Observation Score 7 - 10: 72.7% MACE over next 6 weeks - Early Invasive Strategies Allergies: Allergies: Allergies Coded Allergies Type Severity Reaction Last Updated Verified Gerald And Derivatives Allergy Severe Anaphylaxis 10/21/15 Yes Penicillins Allergy Severe anaphalaxis 10/21/15 Yes peanut Allergy Severe Anaphylaxis 10/21/15 Yes perfume Allergy Severe Anaphylaxis 10/21/15 Yes shellfish derived Allergy Severe Anaphylaxis 10/21/15 Yes strawberry Adverse Reaction Intermediate Rash 10/21/15 Yes Physical Exam: PE: Gen: NAD. Well nourished. Head: NC/AT. Eyes: No scleral icterus. No conjunctival injection. ENT: MMM. Posterior OP clear. Neck: Supple. NT. No JVD. CV: RRR. No M/R/G. Peripheral pulses intact. Resp: Prolonged expiratory phase. Very faint rhonchi. No significant increased work of breathing. Abd: Soft. NT. ND. MSK: No peripheral cyanosis. No edema. No calf tenderness or asymmetry. Neuro: A&Ox3. Strength & sensation grossly intact throughout. Skin. Warm. Dry. Psych: Appropriate mood & affect. Current Patient Data: Labs: Laboratory Tests Test 12/04/19 18:28 White Blood Count 10.4 x10^3/uL (4.0-11.0) Red Blood Count 4.01 x10^6/uL (3.50-5.40) Hemoglobin 13.1 g/dL (12.0-15.5) Hematocrit 38.6 % (36.0-47.0) Mean Corpuscular Volume 96 fL (79-100) Mean Corpuscular Hemoglobin 33 pg (25-35) Mean Corpuscular Hemoglobin Concent 34 g/dL (31-37) Red Cell Distribution Width 13.4 % (11.5-14.5) Platelet Count 238 x10^3/uL (140-400) Neutrophils (%) (Auto) 63 % (31-73) Lymphocytes (%) (Auto) 23 % (24-48) Monocytes (%) (Auto) 12 % (0-9) Eosinophils (%) (Auto) 2 % (0-3) Basophils (%) (Auto) 0 % (0-3) Neutrophils # (Auto) 6.6 x10^3/uL (1.8-7.7) Lymphocytes # (Auto) 2.4 x10^3/uL (1.0-4.8) Monocytes # (Auto) 1.3 x10^3/uL (0.0-1.1) Eosinophils # (Auto) 0.2 x10^3/uL (0.0-0.7) Basophils # (Auto) 0.0 x10^3/uL (0.0-0.2) Prothrombin Time 14.1 SEC (11.7-14.0) Prothromb Time International Ratio 1.1 (0.8-1.1) Activated Partial Thromboplast Time 29 SEC (24-38) D-Dimer (Kathy) 6.42 ug/mlFEU (0.00-0.50) Sodium Level 140 mmol/L (136-145) Chloride Level 103 mmol/L (98-107) Carbon Dioxide Level 28 mmol/L (21-32) Anion Gap 9 (6-14) Blood Urea Nitrogen 15 mg/dL (7-20) Estimated GFR (Cockcroft-Gault) 102.3 BUN/Creatinine Ratio 21 (6-20) Glucose Level 139 mg/dL (70-99) Calcium Level 9.6 mg/dL (8.5-10.1) Total Bilirubin 0.4 mg/dL (0.2-1.0) Aspartate Amino Transf (AST/SGOT) 18 U/L (15-37) Alkaline Phosphatase 74 U/L (46-116) Troponin I Quantitative 0.088 ng/mL (0.000-0.055) Total Protein 7.7 g/dL (6.4-8.2) Albumin 3.8 g/dL (3.4-5.0) Albumin/Globulin Ratio 1.0 (1.0-1.7) EKG: EKG: EKG performed at 1855. Sinus tachycardia. Heart rate 103. Normal intervals. No STEMI. Interpreted by me. Radiology/Procedures: Radiology/Procedures: PROCEDURE: PORTABLE CHEST 1V EXAM: AP View of the chest DATE: 12/04/2019 6:19 PM INDICATION: Reason: SOA / Spl. Instructions: / History: COMPARISON: No Prior FINDINGS: Heart is mildly enlarged. Minimal patchy opacities left lung base likely atelectasis, accentuated by prominent overlying soft tissues. No pleural effusion or pneumothorax. IMPRESSION: Minimal patchy opacities left lung base likely atelectasis, accentuated by prominent overlying soft tissues. Of note, consolidation cannot be entirely excluded. Electronically signed by: Hari Rosario MD (12/04/2019 7:03 PM) [facility] History: Shortness of breath. Elevated d-dimer. Technique: CT of the chest was performed with intravenous contrast. PE protocol. Maximum intensity projection coronal and sagittal reconstructions were performed. Exposure: One or more of the following individualized dose reduction techniques were utilized for this examination: 1. Automated exposure control 2. Adjustment of the mA and/or kV according to patient size 3. Use of iterative reconstruction technique. Comparison: None Findings: Chest: Large right main pulmonary artery embolus extending into the right upper and lower lobes as well as right middle lobe. Small left anterior upper lobe and left lower lobe pulmonary emboli. The right ventricle is dilated. Peripheral groundglass opacity within the right upper lobe. Right lower lobe linear atelectasis. No pleural effusion. No pneumothorax. 2 mm right lower lobe pulmonary nodule (series 3 image 84). Right upper lobe peripheral 3 mm nodule (image 56). Additional smaller right upper lobe pulmonary nodules. Upper abdomen: The imaged upper abdomen is unremarkable. Bones: No pathologic osseous lesions. Impression: 1. Extensive right-sided pulmonary emboli with small left-sided pulmonary emboli. 2. Mildly dilated right ventricle, may indicate right heart strain. 3. Small right upper lobe peripheral groundglass opacity, may represent developing infarct. Course & Med Decision Making: Course & Med Decision Making Pertinent Labs and Imaging studies reviewed. (See chart for details) In summary, 64-year-old female who presents for evaluation of dyspnea over the last few days or so, in the setting of recent spinal surgery 1 month ago. Hemodynamically stable. Troponin was trace elevated at 0.08. Dimer was markedly elevated at 6.4. As such, her work-up was escalated to include CT angio chest, notable for significant primarily right-sided PE burden. Heparin drip ordered. Will be admitted for further management. Admitted to Dr. Mayberry. Pulm and spine consulted. Margarita Disclaimer: Margarita Disclaimer: This electronic medical record was generated, in whole or in part, using a voice recognition dictation system. Departure Departure Impression: Primary Impression: Pulmonary embolism Additional Impression: Elevated troponin Disposition: ADMITTED INPATIENT Admitting Physician: LEONARDO ESPINOSA) Condition: GUARDED Referrals: SCAR MONTERO MD (PCP) Justicifation of Admission Dx: Justifications for Admission: Justification of Admission Dx: Yes Acute COPD Exacerbation: Acute COPD Exacerbation TN: Acute NSTEMI ZEEKARLA DO Dec 04, 2019 18:24
[2019-12-04] MEDS ORDERED: methylPREDNISolone SOD SUCC PF 40 MG/ML VIAL. IV ONE (18:30)
[2019-12-04] MEDS ORDERED: IPRATRPIUM/ALBUTEROL 0.5/2.5MG 3 ML NEBU. NEB ONE (18:30)
[2019-12-04 18:39] LABS: BASO % 0 % (0-3); EOS # 0.2 x10^3/uL (0.0-0.7); EOS % 2 % (0-3); HEMATOCRIT 38.6 % (36.0-47.0); HEMOGLOBIN 13.1 g/dL (12.0-15.5); LYMPH # 2.4 x10^3/uL (1.0-4.8); LYMPH % 23 % (24-48); MEAN CORPUSCULAR HEMOGLOBIN 33 pg (25-35); MEAN CORPUSCULAR HGB CONC 34 g/dL (31-37); MEAN CORPUSCULAR VOLUME 96 fL (79-100); MONO # 1.3 x10^3/uL (0.0-1.1); MONO % 12 % (0-9); NEUT # 6.6 x10^3/uL (1.8-7.7); NEUT % 63 % (31-73); PLATELET COUNT 238 x10^3/uL (140-400); RED BLOOD COUNT 4.01 x10^6/uL (3.50-5.40); RED CELL DISTRIBUTION WIDTH 13.4 % (11.5-14.5); WHITE BLOOD COUNT 10.4 x10^3/uL (4.0-11.0)
[2019-12-04 18:49] LABS: PROTHROMBIN TIME PATIENT 14.1 SEC (11.7-14.0)
[2019-12-04 18:52] LABS: CALCIUM 9.6 mg/dL (8.5-10.1); CREATININE 0.7 mg/dL (0.6-1.0); GFR 102.3; POTASSIUM 3.7 mmol/L (3.5-5.1)
[2019-12-04 18:58] LABS: ALBUMIN 3.8 g/dL (3.4-5.0); TOTAL BILIRUBIN 0.4 mg/dL (0.2-1.0); TOTAL PROTEIN 7.7 g/dL (6.4-8.2)
[2019-12-04] MEDS ORDERED: methylPREDNISolone SOD SUCC PF 125 MG/2 ML VIAL. ONE (19:05)
--- NOTE | 2019-12-04 19:06 | RAD ---
EXAM: AP View of the chest DATE: 12/04/2019 6:19 PM INDICATION: Reason: SOA / Spl. Instructions: / History: COMPARISON: No Prior FINDINGS: Heart is mildly enlarged. Minimal patchy opacities left lung base likely atelectasis, accentuated by prominent overlying soft tissues. No pleural effusion or pneumothorax. IMPRESSION: Minimal patchy opacities left lung base likely atelectasis, accentuated by prominent overlying soft tissues. Of note, consolidation cannot be entirely excluded. Electronically signed by: Hari Rosario MD (12/04/2019 7:03 PM) [facility]
[2019-12-04 19:09] LABS: D-DIMER 6.42 ug/mlFEU (0.00-0.50)
[2019-12-04] MEDS ORDERED: methylPREDNISolone SOD SUCC PF 125 MG/2 ML VIAL. IV ONE (19:15)
[2019-12-04] MEDS ORDERED: CONTRAST GIVEN. MC PRN (19:30)
[2019-12-04] MEDS ORDERED: IOHEXOL 350 MG/ML 100 ML VIAL. IV ONE (19:30)
--- NOTE | 2019-12-04 20:55 | RAD ---
CT ANGIOGRAPHY CHEST History: Shortness of breath. Elevated d-dimer. Technique: CT of the chest was performed with intravenous contrast. PE protocol. Maximum intensity projection coronal and sagittal reconstructions were performed. Exposure: One or more of the following individualized dose reduction techniques were utilized for this examination: 1. Automated exposure control 2. Adjustment of the mA and/or kV according to patient size 3. Use of iterative reconstruction technique. Comparison: None Findings: Chest: Large right main pulmonary artery embolus extending into the right upper and lower lobes as well as right middle lobe. Small left anterior upper lobe and left lower lobe pulmonary emboli. The right ventricle is dilated. Peripheral groundglass opacity within the right upper lobe. Right lower lobe linear atelectasis. No pleural effusion. No pneumothorax. 2 mm right lower lobe pulmonary nodule (series 3 image 84). Right upper lobe peripheral 3 mm nodule (image 56). Additional smaller right upper lobe pulmonary nodules. Upper abdomen: The imaged upper abdomen is unremarkable. Bones: No pathologic osseous lesions. Impression: 1. Extensive right-sided pulmonary emboli with small left-sided pulmonary emboli. 2. Mildly dilated right ventricle, may indicate right heart strain. 3. Small right upper lobe peripheral groundglass opacity, may represent developing infarct. 4. Small pulmonary nodules. Recommend one-year follow-up if high risk. FOR INTERNAL CODING PURPOSES Critical result: Findings discussed with KARLA KOCH at 12/04/2019 8:48 PM. RESULT CODE: (C) Electronically signed by: Ken Daniel DO (12/04/2019 8:52 PM) [facility]
[2019-12-04] MEDS ORDERED: HEPARIN for IV BOLUS 10,000 UNIT/10 ML VIAL. IV PRN ×2 (21:00)
[2019-12-04] MEDS ORDERED: MORPHINE SULFATE 4 MG/ML VIAL. IV PRN (22:15)
[2019-12-04] MEDS ORDERED: ONDANSETRON PF 4 MG/2 ML VIAL. IV PRN (22:15)
[2019-12-04] MEDS: HEPARIN 25,000UTS/250ML PREMIX 250 ML IV PRN (23:11)
[2019-12-05] VITALS (7 sets, daily range): BP systolic 135–156; BP diastolic 83–93
[2019-12-05] MEDS ORDERED: FENO54TA PO (01:14)
[2019-12-05] MEDS ORDERED: ATOR40TA59 PO (01:14)
[2019-12-05] MEDS ORDERED: VENTOLIN HFA18 GM INH (01:14)
[2019-12-05] MEDS ORDERED: FLUT1DIS3 IH (01:14)
[2019-12-05] MEDS ORDERED: GLIM1TAB7 PO (01:14)
[2019-12-05] MEDS ORDERED: DEXTROSE 50% 25 GM / 50ML DISP.SYRIN. IV PRN ×2 (02:45→12:45)
[2019-12-05] MEDS ORDERED: C.DIFF MED SCREEN BY RX. MC ONE (06:00)
[2019-12-05] MEDS ORDERED: INSULIN LISPRO 300 UNITS/3 ML VIAL. SQ SCH (08:00)
--- NOTE | 2019-12-05 10:33 | CONS ---
DATE OF CONSULTATION: PULMONARY CONSULTATION ATTENDING PHYSICIAN: Essie Mayberry DO REASON FOR CONSULTATION: Pulmonary embolism. HISTORY OF PRESENT ILLNESS: The patient is a 64-year-old obese patient with a BMI of 44. The patient had a history of DVT about more than 5 years ago. She said she was treated for over a year with Coumadin. No PE in the past. She was brought into the hospital after she had been having shortness of breath, which progressively worsened in the last 4-5 days. She did not have any chest pain, no syncopal episode. The patient had lumbar surgery about a month ago. She states she had been relatively immobile. During the workup in the ER, a CT angiogram was performed, which was reviewed by me. The patient had evidence of significant distal right mainstem pulmonary embolism extending into the right upper lobe and lower lobe as well as the right middle lobe. There was also a small left anterior upper lobe and left lower lobe pulmonary emboli. There was right ventricular dilatation. There was a tiny 2 mm right lower lobe nodule and also a 3 mm right upper lobe nodule. She has been currently on heparin. I have been asked to see her for further evaluation. She does give a family history of pulmonary embolism in her uncles. She does not have any known cancers. PAST MEDICAL HISTORY: Significant for diabetes, dyslipidemia. PAST SURGICAL HISTORY: Cholecystectomy, hysterectomy, breast reduction, and right knee arthroscopy. SOCIAL HISTORY: Denies any tobacco history. REVIEW OF SYSTEMS: Twelve-point system obtained. Pertinent positives discussed in my history of present illness, otherwise noncontributory. All systems that were negative were reviewed as well. ALLERGIES: All reviewed as listed in the MRAD. MEDICATIONS: Reviewed as listed in the MRAD. FAMILY HISTORY: Her uncles from her father's side had a pulmonary embolism in their 50s. PHYSICAL EXAMINATION: VITAL SIGNS: Reviewed. Blood pressure 144/93, pulse ox 93% on room air. She was 95% on 2 liters earlier. NECK: Supple. LUNGS: With clear breath sounds. CARDIOVASCULAR: Regular rate. ABDOMEN: Soft, obese. EXTREMITIES: With some tenderness in the right leg. LABORATORY DATA: Reviewed. White cell count 10.4, hemoglobin 13.1, platelets are 238. BUN 15, creatinine 0.7. Troponin 0.088. IMPRESSION: 1. Acute hypoxic respiratory failure secondary to acute pulmonary embolism with evidence of right ventricular strain. Risk factors being recent spinal/lumbar surgery, underlying obesity and possible hypercoagulable state. Her uncles had history of pulmonary embolism. 2. Abnormal CT chest with extensive pulmonary embolism as discussed above, mostly on the right side, but minimally on the left side as well. There were tiny 2-3 mm nodule, which may be noncalcified granulomas and will need to have a followup. She has no known malignancy. 3. Underlying obesity. 4. No significant tobacco history. 5. Rule out hypercoagulable state. RECOMMENDATIONS: 1. Continue p.r.n. oxygen to keep saturation 96 and above. 2. Obtain venous Dopplers of lower extremities. 3. We will obtain hypercoagulable panel as an outpatient. 4. Continue heparin and switch to Eliquis in the next 24 hours. 5. 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 6. Obtain echocardiogram. 7. Discussed with and discussed with Dr. Conner. We will follow along with you. CHARU SCALES MD DR: CLARKE/alma JOB#: [id number] / [id number]
--- NOTE | 2019-12-05 10:43 | EKG ---
[facility] [address] [place] [address] Test Date: 2019-12-04 Test Time: 18:55:27 Pat Name: ANNA POST Department: Room: Gender: F Supervisory Clerk: : [id number] Requested By: KARLA KOCH Order Number: [id number] Reading MD: Measurements Intervals [place] Rate: 103 P: 33 ND: 138 QRS: 19 QRSD: 94 T: 33 QT: 384 QTc: 505 Interpretive Statements SINUS TACHYCARDIA ATRIAL PREMATURE COMPLEX(ES) NO SPECIFIC ECG ABNORMALITIES RI6.02 No previous ECG available for comparison
--- NOTE | 2019-12-05 11:22 | NUR ---
SS following for discharge planning. SS reviewed pt chart and discussed with pt RN. Pt is from home and is currently requiring oxygen. Per RN, pt has PE's. Pt on Heparin drip. SS will continue to follow for discharge planning.
--- NOTE | 2019-12-05 12:24 | HP ---
ADMIT DATE: 12/05/2019 CHIEF COMPLAINT: Shortness of breath. HISTORY OF PRESENT ILLNESS: The patient is a pleasant 64-year-old female, who has been short of breath, has been coming on stronger and stronger for the past couple of days. It first started 4 days ago. Last night, it got so severe, she called her and he brought her to the hospital. When she got to the ER, she is noted to have a large pulmonary embolism to the right pulmonary artery. Rates her symptoms at 10/10. I discussed the case with ER physician. We have placed her on heparin drip and consulted Cardiology and Pulmonary Medicine, and mostly we are going to consult Hematology as she has a history of previous DVTs. The patient is critically ill; currently being examined in room 261. PAST MEDICAL HISTORY: Previous DVT, recent back surgery, diabetes, hyperlipidemia, cholecystectomy, hysterectomy, breast reduction, right knee arthroscopy, previous tobacco abuse. ALLERGIES: CITRUS, PENICILLIN, PEANUTS, PERFUME, SHELLFISH, STRAWBERRIES. FAMILY HISTORY: DVT in her uncle and diabetes. SOCIAL HISTORY: She is . She does not drink, smoke or take drugs. She quit smoking. MEDICATIONS: Reviewed, please refer to the MRAD. REVIEW OF SYSTEMS: GENERAL: No history of weight change, weakness or fevers. SKIN: No bruising, hair changes or rashes. EYES: No blurred, double or loss of vision. NOSE AND THROAT: No history of nosebleeds, hoarseness or sore throat. HEART: No history of palpitations, chest pain or shortness of breath on exertion. LUNGS: Denies cough, hemoptysis, wheezing. She complains of severe shortness of breath. GASTROINTESTINAL: Denies changes in appetite, nausea, vomiting, diarrhea or constipation. GENITOURINARY: No history of frequency, urgency, hesitancy or nocturia. NEUROLOGIC: Denies history of numbness, tingling, tremor or weakness. PSYCHIATRIC: No history of panic, anxiety or depression. ENDOCRINE: No history of heat or cold intolerance, polyuria or polydipsia. EXTREMITIES: Denies muscle weakness, joint pain, pain on walking or stiffness. PHYSICAL EXAMINATION: VITALS: Within normal limits and are stable. GENERAL: She is in obvious respiratory distress. HEENT: Normal cephalic atraumatic, external auditory canals are patent. EYES: Extraocular muscles are intact, pupils are equally round and reactive to light and accommodation. MUSCULOSKELETAL: Well developed, well nourished, good range of motion. ENDOCRINE: No thyromegaly was palpated. LYMPHATICS: No cervical chain or axillary nodes were noted. HEMATOPOIETIC: No bruising. NECK: Supple, no JVD, no thyromegaly was noted. LUNGS: She has decreased breath sounds on the right. She is tachypneic. HEART: She is tachycardic at 102 beats per minute. ABDOMEN: Soft, nontender. Positive bowel sounds no organomegaly, normal bowel sounds. EXTREMITIES: Without any cyanosis, clubbing, or edema. Pedal pulses intact, Homans sign is negative. NEUROLOGIC: Normal speech, normal tone. A & O x3, moves all extremities, no obvious focal deficits. PSYCHIATRIC: She is anxious. SKIN: No ulcerations or rashes, good skin turgor, no jaundice. VASCULAR: Good capillary refill, neurovascular bundle appears to be intact. ASSESSMENT AND PLAN: Respiratory failure secondary to a large pulmonary embolism on the right. The patient has been admitted. We are giving IV heparin. We have consulted Pulmonary. Cardiac monitoring. DVT prophylaxis and we are going to check lower extremity Dopplers to rule out any other clots that might be lingering. Serial enzymes, serial EKGs, home meds. PROGNOSIS: Guarded. CRITICAL CARE TIME: 34 minutes. JARON VILLASEÑOR DO DR: JOSE R/alma JOB#: [id number] / [id number]
--- NOTE | 2019-12-05 12:28 | PDOC2 ---
JAMAL ROSA BARNWORKER GROOM 12/05/19 1228: CARDIAC CONSULT DATE OF CONSULT Date of Consult DATE: 12/05/19 TIME: 12:14 REASON FOR CONSULT Reason for Consult: Elevated troponin REFERRING PHYSICIAN Referring Physician: Dr. Mayberry SOURCE Source: Chart review, Patient HISTORY OF PRESENT ILLNESS HISTORY OF PRESENT ILLNESS This is a 64 yo female who presented secondary to shortness of breath since this past weekend. Denies any chest pain, dizziness, diaphoresis, palpitations, or nausea/vomiting. Troponin noted to be elevated, which prompted this consult. Underwent spinal surgery about a month ago. CTA noted with extensive right and small left-sided pulmonary emboli. Anticoagulation therapy has been initiated. PAST MEDICAL HISTORY Cardiovascular: CHF (NICM), HTN, Hyperlipidemia, Other (venous insufficiency s/p catheter ablation of greater saphenous vein) Heme/Onc: Other (DVT) Endocrine: Diabetes PAST SURGICAL HISTORY Past Surgical History: Cholecystectomy, Total knee replacement (right ), Hysterectomy, Other, No pertinent history (lumbar laminectomy, right breast lumpectomy ) FAMILY HISTORY Family History: Heart Disease, Hypertension SOCIAL HISTORY Smoke: No ALCOHOL: none Drugs: None Lives: with Family CURRENT MEDICATIONS CURRENT MEDICATIONS Current Medications Medications (Trade) Dose Ordered Sig/Nina Route PRN Reason Start Time Stop Time Status Last Admin Dose Admin Albuterol/ Ipratropium (Duoneb) 3 ml 1X ONCE NEB 12/04/19 18:30 12/04/19 18:31 DC 12/04/19 18:44 Methylprednisolone Sodium Succinate (SOLU-Medrol 125MG VIAL) 125 mg 1X ONCE IV 12/04/19 19:15 12/04/19 19:16 DC 12/04/19 19:12 Iohexol (Omnipaque 350 Mg/ml) 100 ml 1X ONCE IV 12/04/19 19:30 12/04/19 19:31 DC 12/04/19 19:30 Heparin Sodium/ Dextrose 250 ml @ 0 mls/hr CONT PRN IV PER PROTOCOL 12/04/19 21:00 12/04/19 23:11 Insulin Human Lispro (HumaLOG) 0-5 UNITS TIDWMEALS SQ 12/05/19 08:00 12/05/19 08:00 ALLERGIES ALLERGIES: Coded Allergies: Hartley And Derivatives (Verified Allergy, Severe, Anaphylaxis, 10/21/15) Penicillins (Verified Allergy, Severe, anaphalaxis, 10/21/15) peanut (Verified Allergy, Severe, Anaphylaxis, 10/21/15) also peanut butter perfume (Verified Allergy, Severe, Anaphylaxis, 10/21/15) shellfish derived (Verified Allergy, Severe, Anaphylaxis, 10/21/15) methocarbamol (Verified Allergy, Intermediate, 12/05/19) Pt states that this and all muscle relaxants cause her to feel "bad all over" and "aches all over." strawberry (Verified Adverse Reaction, Intermediate, Rash, 10/21/15) any kind of berries ROS Review of System 14 point ROS conducted with pertinent positives noted above in HPI PHYSICAL EXAM General: Alert, Oriented X3, Cooperative, mild distress Lungs: Clear to auscultation, Other (diminished ) Heart: Regular rate, Other (distant heart tones ) Abdomen: Soft, No tenderness, Other (obese ) Extremities: No edema, Normal pulses Skin: No breakdown, No significant lesion Neuro: Normal speech, Sensation intact Psych/Mental Status: Mental status NL, Mood NL MUSCULOSKELETAL: Osteoarthritic changes both hands VITALS/I&O VITALS/I&O: Vital Signs Date Time Temp Pulse Resp B/P (MAP) Pulse Ox O2 Delivery O2 Flow Rate FiO2 12/05/19 07:00 97.4 95 20 144/93 (110) 93 Room Air 97.4 12/05/19 04:06 2.0 I & O 12/04/19 12/04/19 12/05/19 15:00 23:00 07:00 Intake Total 240 ml Output Total 0 ml Balance 240 ml LABS Lab: Laboratory Tests Test 12/04/19 18:28 12/05/19 04:35 12/05/19 08:32 12/05/19 11:59 White Blood Count 10.4 x10^3/uL (4.0-11.0) Red Blood Count 4.01 x10^6/uL (3.50-5.40) Hemoglobin 13.1 g/dL (12.0-15.5) Hematocrit 38.6 % (36.0-47.0) Mean Corpuscular Volume 96 fL (79-100) Mean Corpuscular Hemoglobin 33 pg (25-35) Mean Corpuscular Hemoglobin Concent 34 g/dL (31-37) Red Cell Distribution Width 13.4 % (11.5-14.5) Platelet Count 238 x10^3/uL (140-400) Neutrophils (%) (Auto) 63 % (31-73) Lymphocytes (%) (Auto) 23 % (24-48) L Monocytes (%) (Auto) 12 % (0-9) H Eosinophils (%) (Auto) 2 % (0-3) Basophils (%) (Auto) 0 % (0-3) Neutrophils # (Auto) 6.6 x10^3/uL (1.8-7.7) Lymphocytes # (Auto) 2.4 x10^3/uL (1.0-4.8) Monocytes # (Auto) 1.3 x10^3/uL (0.0-1.1) H Eosinophils # (Auto) 0.2 x10^3/uL (0.0-0.7) Basophils # (Auto) 0.0 x10^3/uL (0.0-0.2) Prothrombin Time 14.1 SEC (11.7-14.0) H Prothrombin Time INR 1.1 (0.8-1.1) Activated Partial Thromboplast Time 29 SEC (24-38) D-Dimer (Kathy) 6.42 ug/mlFEU (0.00-0.50) H Sodium Level 140 mmol/L (136-145) Potassium Level 3.7 mmol/L (3.5-5.1) Chloride Level 103 mmol/L (98-107) Carbon Dioxide Level 28 mmol/L (21-32) Anion Gap 9 (6-14) Blood Urea Nitrogen 15 mg/dL (7-20) Creatinine 0.7 mg/dL (0.6-1.0) Estimated GFR (Cockcroft-Gault) 102.3 BUN/Creatinine Ratio 21 (6-20) H Glucose Level 139 mg/dL (70-99) H Calcium Level 9.6 mg/dL (8.5-10.1) Total Bilirubin 0.4 mg/dL (0.2-1.0) Aspartate Amino Transferase (AST) 18 U/L (15-37) Alanine Aminotransferase (ALT) 41 U/L (14-59) Alkaline Phosphatase 74 U/L (46-116) Troponin I Quantitative 0.088 ng/mL (0.000-0.055) WS-Qfs-L-Type Natriuretic Peptide 2418 pg/mL (0-124) H Total Protein 7.7 g/dL (6.4-8.2) Albumin 3.8 g/dL (3.4-5.0) Albumin/Globulin Ratio 1.0 (1.0-1.7) Heparin Anti-Xa Act, Unfractionated 0.52 IU/mL (0.30-0.70) Glucose (Fingerstick) 358 mg/dL (70-99) H 353 mg/dL (70-99) H Laboratory Tests 12/04/19 18:28 Laboratory Tests 12/04/19 18:28 ECHOCARDIOGRAM ECHOCARDIOGRAM <Conclusion> The left ventricle is normal size. Left ventricle systolic function is low normal. The Ejection Fraction is 50%. There is normal LV segmental wall motion. Doppler and Color Flow revealed no significant aortic regurgitation. There is no significant aortic valvular stenosis. Doppler and Color-flow revealed trace to mild mitral regurgitation. Doppler and Color Flow revealed trace tricuspid regurgitation. The PA pressure was estimated at 25 mmHg. DATE: 08/06/19 1207 HEART CATH HEART CATH Conclusion 1. No significant coronary artery disease 2. Severe global left ventricle dysfunction with ejection fraction estimated at 25% 3. No significant mitral regurgitation or aortic stenosis Recommendations Optimization of medical therapy for nonischemic cardiomyopathy. Repeat 2-D echo in 3 months and evaluate the need for AICD implantation for primary prevention of sudden cardiac . DATE: 01/18/14 1124 Right and left heart cath 08/03/16 showed no significant CAD, EF 40-45%, no PAH ASSESSMENT/PLAN ASSESSMENT/PLAN 1. Dyspnea with acute PE; anticoagulated with heparin. Echo noted to evaluate RV. continue as per pulm 2. H/o NICM; LVEF perviously 25%. Most recent echo 08/07 showed LV recovery with EF 50% as noted above. clinically compensated. Resume coreg, lasix therapy 3. Elevated troponin; initial 0.08. type II, demand ischemic in the setting of PE. Cath 08/04 without significant CAD. CP free. Will trend trop 4. Hypertension; mildly elevated. Resume home therapy 5. Hyperlipidemia; statin. Lipids 6. Diabetes,II; as per PCP 7. JESSICA wtih CPAP 8. Venous insufficiency; s/p catheter ablation; clinically stable ROBERTO SHAIKH MD 12/05/19 2016: CARDIAC CONSULT ASSESSMENT/PLAN ASSESSMENT/PLAN Patient seen and examined. Agree with [employer] OPERATOR's assessment and plan. Continue AC for acute PE per pulm team NICM with recent echo showing normalized LVEF Slight trop elevation prob demand ischemia Resume home antihypertensives and titrate for better BP control Thank you for yoru consultation JAMAL ROSA APRN Dec 05, 2019 12:28 ROBERTO SHAIKH MD Dec 05, 2019 20:16
[2019-12-05] MEDS: HEPARIN 25,000UTS/250ML PREMIX 250 ML IV PRN (13:11)
[2019-12-05] MEDS: INSULIN LISPRO 300 UNITS/3 ML VIAL. SQ SCH ×2 (13:12→17:43)
--- NOTE | 2019-12-05 13:52 | RAD ---
Bilateral lower extremity venous doppler ultrasound History: Bilateral lower extremity edema Comparison: None Findings: Multiple grayscale, color, and duplex spectral analysis sonographic images were acquired of the bilateral lower extremity veins to evaluate for the presence of DVT. On the left, there is occlusive abnormal echogenicity extending from the left common femoral vein to the popliteal vein. There is some flow demonstrated in the left calf veins. Interrogated right lower extremity veins are patent with normal phasicity and color-flow. Impression: 1. There is long segment occlusive thrombus from the left common femoral vein to the popliteal vein. 2. Interrogated right lower extremity veins are patent. Critical results were discussed with patient's nurse at 12/05/2019 1:49 PM. Electronically signed by: Jurgen Mckeon MD (12/05/2019 1:49 PM) [id number]
[2019-12-05] MEDS: FENOFIBRATE 54 MG TABLET. PO SCH (16:06)
[2019-12-05] MEDS: TRIAMTERENE/HCTZ 37.5/25MG TABLET. PO SCH (16:06)
[2019-12-05] MEDS: FUROSEMIDE 40 MG TABLET. PO SCH (16:06)
[2019-12-05] MEDS: CARVEDILOL 3.125 MG TABLET. PO SCH (16:07)
--- NOTE | 2019-12-05 16:48 | PDOC2 ---
CONSULT Date of Consult Date of Consult DATE: 12/05/19 TIME: 16:32 Reason for Consult Reason for Consult: Recurrent pulmonary embolism Referring Physician Referring Physician: Dr. Mayberry Identification/Chief Complaint Chief Complaint Shortness of breath History of Present Illness Reason for Visit: Romelia saldana is a 64-year-old -[place] female who has been admitted for further evaluation and management of shortness of breath secondary to pulmonary embolism. She underwent L1-L2 laminectomy and posterior lateral fusion by Dr. Hagan on 11/08/2019. She reports having developed sudden onset severe shortness of breath 3 days ago. She used her albuterol inhaler with limited relief of her breathing. She subsequently chose to come to the hospital for further evaluation of her shortness of breath. She was seen in the emergency room and received a CT angiogram which showed right-sided pulmonary embolism and small left anterior upper lobe and left lower lobe pulmonary emboli. Associated right ventricular dilatation/strain was noted. She was admitted to the hospital and has been receiving a heparin infusion for anticoagulation. Romelia has a prior history of deep venous thrombosis in the left lower extremity . She does not recall specific details with regard to following and what this was. She reports that she was hospitalized at [facility]. She recalls no antecedent history of surgery or immobilization or travel or use of estrogen- based hormone replacement or contraception. She remembers having received warfarin for 1 year for anticoagulation. She has not been on anticoagulation since then. Patient reports a family history of deep venous thrombosis and pulmonary embolism in 2 of her siblings. She is not aware of any positive genetic test for inherited thrombophilia syndromes in her family. Hematology consultation has been sought due to the patient's recurrent presentation with thromboembolism and her associated family history of VTE. Past Medical History Cardiovascular: CHF (NICM), HTN, Hyperlipidemia, Other (venous insufficiency s/p catheter ablation of greater saphenous vein) Heme/Onc: Other (DVT) Endocrine: Diabetes Past Surgical History Past Surgical History: Cholecystectomy, Total knee replacement (right ), Hysterectomy, Other, No pertinent history (lumbar laminectomy, right breast lumpectomy ) Family History Family History: Heart Disease, Hypertension Social History No ALCOHOL: none Drugs: None Lives: with Family Current Problem List Problem List Problems Medical Problems: (1) Elevated troponin Status: Acute (2) Pulmonary embolism Status: Acute Current Medications Current Medications Current Medications Albuterol/ Ipratropium (Duoneb) 3 ml 1X ONCE NEB Last administered on 12/04/19at 18:44; Start 12/04/19 at 18:30; Stop 12/04/19 at 18:31; Status DC Methylprednisolone Sodium Succinate (SOLU-Medrol 40MG VIAL) 125 mg 1X ONCE IV ; Start 12/04/19 at 18:30; Stop 12/04/19 at 18:31; Status DC Methylprednisolone Sodium Succinate (SOLU-Medrol 125MG VIAL) 125 mg STK-MED ONCE .ROUTE ; Start 12/04/19 at 19:05; Stop 12/04/19 at 19:05; Status DC Methylprednisolone Sodium Succinate (SOLU-Medrol 125MG VIAL) 125 mg 1X ONCE IV Last administered on 12/04/19at 19:12; Start 12/04/19 at 19:15; Stop 12/04/19 at 19:16; Status DC Iohexol (Omnipaque 350 Mg/ml) 100 ml 1X ONCE IV Last administered on 12/04/19at 19:30; Start 12/04/19 at 19:30; Stop 12/04/19 at 19:31; Status DC Info (CONTRAST GIVEN -- Rx MONITORING) 1 each PRN DAILY PRN MC SEE COMMENTS; Start 12/04/19 at 19:30; Stop 12/06/19 at 19:29 Heparin Sodium/ Dextrose 250 ml @ 0 mls/hr CONT PRN IV PER PROTOCOL Last administered on 12/05/19at 13:11; Start 12/04/19 at 21:00 Heparin Sodium (Porcine) (Heparin Sodium) 3,100 unit PRN Q6HRS PRN IV FOR UFH LEVEL LESS THAN 0.2; Start 12/04/19 at 21:00 Heparin Sodium (Porcine) (Heparin Sodium) 1,550 unit PRN Q6HRS PRN IV FOR UFH LEVEL 0.2 - 0.29; Start 12/04/19 at 21:00 Ondansetron HCl (Zofran) 4 mg PRN Q8HRS PRN IV NAUSEA/VOMITING 1ST CHOICE; Start 12/04/19 at 22:15; Stop 12/05/19 at 22:14 Morphine Sulfate (Morphine Sulfate) 4 mg PRN Q2HR PRN IV SEVERE PAIN 7-10; Start 12/04/19 at 22:15; Stop 12/05/19 at 22:14 Insulin Human Lispro (HumaLOG) 0-5 UNITS TIDWMEALS SQ Last administered on 12/05/19at 08:00; Start 12/05/19 at 08:00; Stop 12/05/19 at 12:49; Status DC Dextrose (Dextrose 50%-Water Syringe) 12.5 gm PRN Q15MIN PRN IV SEE COMMENTS; Start 12/05/19 at 02:45 Pharmacy Consult (C.diff Med Screen By Rx) 1 each 1X ONCE MC ; Start 12/05/19 at 06:00; Stop 12/05/19 at 06:01; Status DC Insulin Human Lispro (HumaLOG) 0-7 UNITS TIDWMEALS SQ Last administered on 12/05/19at 13:12; Start 12/05/19 at 12:45 Dextrose (Dextrose 50%-Water Syringe) 12.5 gm PRN Q15MIN PRN IV SEE COMMENTS; Start 12/05/19 at 12:45 Atorvastatin Calcium (Lipitor) 40 mg QHS PO ; Start 12/05/19 at 21:00 Carvedilol (Coreg) 3.125 mg BIDWMEALS PO Last administered on 12/05/19at 16:07; Start 12/05/19 at 17:00 Fenofibrate (Lofibra) 54 mg DAILY PO Last administered on 12/05/19at 16:06; Start 12/05/19 at 16:00 Furosemide (Lasix) 40 mg DAILY PO Last administered on 12/05/19at 16:06; Start 12/05/19 at 15:00 Triamterene/HCTZ (Maxzide 37.5/ 25mg) 1 tab DAILY PO Last administered on 12/05/19at 16:06; Start 12/05/19 at 16:00 Active Scripts Active Percocet 5-325 Mg Tablet (Oxycodone/Acetaminophen) 1 Each Tablet 1 Tab PO PRN Q4HRS PRN Reported Ventolin Hfa Inhaler (Albuterol Sulfate) 18 Gm Hfa.aer.ad 2 Puff INH QID Fenofibrate 54 Mg Tablet 1 Tab PO DAILY Advair 250-50 Diskus (Fluticasone/Salmeterol) 1 Each Disk.w.dev 1 Puff IH BID Glimepiride 1 Mg Tablet 1 Tab PO DAILY Atorvastatin Calcium 40 Mg Tablet 1 Tab PO QHS [hormone bj] Triamcinolone Acetonide 0.025% Cream (Triamcinolone Acetonide) 15 Gm Cream..g. 1 Sherie TP DAILY PRN Furosemide 40 Mg Tablet 40 Mg PO DAILY Metformin Hcl 500 Mg Tablet 1 Tab PO DAILYWBKFT Do not take for 48hours after procedure. Next dose evening dose 08/05/16 Coreg (Carvedilol) 3.125 Mg Tablet 3.125 Mg PO BID Triamterene-Hctz 37.5-25 Mg Tb (Triamterene/Hydrochlorothiazid) 1 Each Tablet 1 Tab PO DAILY Allergies Allergies: Coded Allergies: [place] And Derivatives (Verified Allergy, Severe, Anaphylaxis, 10/21/15) Penicillins (Verified Allergy, Severe, anaphalaxis, 10/21/15) peanut (Verified Allergy, Severe, Anaphylaxis, 10/21/15) also peanut butter perfume (Verified Allergy, Severe, Anaphylaxis, 10/21/15) shellfish derived (Verified Allergy, Severe, Anaphylaxis, 10/21/15) methocarbamol (Verified Allergy, Intermediate, 12/05/19) Pt states that this and all muscle relaxants cause her to feel "bad all over" and "aches all over." strawberry (Verified Adverse Reaction, Intermediate, Rash, 10/21/15) any kind of berries ROS General: No: Chills, Night Sweats PSYCHOLOGICAL ROS: No: Anxiety, Behavioral Disorder Eyes: No Blurry vision, No Decreased vision HEENT: No: Heacaches, Visual Changes ALLERGY AND IMMUNOLOGY: No: Nasal Congestion, Post Nasal Drip Hematological and Lymphatic: No: Brusing, Night Sweats ENDOCRINE: No: Malaise/lethargy, Mood Swings Breast: No Nipple discharge Respiratory: YES: Pleuritic Pain, Shortness of breath Cardiovascular: yes Chest Pain, yes Palpitations; No Edema Gastrointestinal: No Diarrhea Genitourinary: No Urgency, No Flank Pain Musculoskeletal: No Joint Pain, No Joint Stiffness Neurological: No Behavorial Changes, No Bowel/Bladder ControlChng Skin: No Dry Skin, No Eczema Physical Exam General: Alert, Oriented X3 HEENT: Atraumatic, PERRLA Lungs: Clear to auscultation Heart: Regular rate, Normal S1, Normal S2 Abdomen: Normal bowel sounds, Soft Extremities: No clubbing, No cyanosis Skin: No rashes Neuro: Normal speech Psych/Mental Status: Mental status NL MUSCULOSKELETAL: No swelling Vitals VITALS Vital Signs Date Time Temp Pulse Resp B/P (MAP) Pulse Ox O2 Delivery O2 Flow Rate FiO2 12/05/19 16:07 90 139/83 12/05/19 11:00 96.5 22 95 Room Air 96.5 12/05/19 08:00 2.0 Labs Labs Laboratory Tests Test 12/04/19 18:28 12/05/19 04:35 12/05/19 08:32 12/05/19 11:59 White Blood Count 10.4 x10^3/uL (4.0-11.0) Red Blood Count 4.01 x10^6/uL (3.50-5.40) Hemoglobin 13.1 g/dL (12.0-15.5) Hematocrit 38.6 % (36.0-47.0) Mean Corpuscular Volume 96 fL (79-100) Mean Corpuscular Hemoglobin 33 pg (25-35) Mean Corpuscular Hemoglobin Concent 34 g/dL (31-37) Red Cell Distribution Width 13.4 % (11.5-14.5) Platelet Count 238 x10^3/uL (140-400) Neutrophils (%) (Auto) 63 % (31-73) Lymphocytes (%) (Auto) 23 % (24-48) Monocytes (%) (Auto) 12 % (0-9) Eosinophils (%) (Auto) 2 % (0-3) Basophils (%) (Auto) 0 % (0-3) Neutrophils # (Auto) 6.6 x10^3/uL (1.8-7.7) Lymphocytes # (Auto) 2.4 x10^3/uL (1.0-4.8) Monocytes # (Auto) 1.3 x10^3/uL (0.0-1.1) Eosinophils # (Auto) 0.2 x10^3/uL (0.0-0.7) Basophils # (Auto) 0.0 x10^3/uL (0.0-0.2) Prothrombin Time 14.1 SEC (11.7-14.0) Prothromb Time International Ratio 1.1 (0.8-1.1) Activated Partial Thromboplast Time 29 SEC (24-38) D-Dimer (Kathy) 6.42 ug/mlFEU (0.00-0.50) Sodium Level 140 mmol/L (136-145) Potassium Level 3.7 mmol/L (3.5-5.1) Chloride Level 103 mmol/L (98-107) Carbon Dioxide Level 28 mmol/L (21-32) Anion Gap 9 (6-14) Blood Urea Nitrogen 15 mg/dL (7-20) Creatinine 0.7 mg/dL (0.6-1.0) Estimated GFR (Cockcroft-Gault) 102.3 BUN/Creatinine Ratio 21 (6-20) Glucose Level 139 mg/dL (70-99) Calcium Level 9.6 mg/dL (8.5-10.1) Total Bilirubin 0.4 mg/dL (0.2-1.0) Aspartate Amino Transf (AST/SGOT) 18 U/L (15-37) Alanine Aminotransferase (ALT/SGPT) 41 U/L (14-59) Alkaline Phosphatase 74 U/L (46-116) Troponin I Quantitative 0.088 ng/mL (0.000-0.055) HJ-Rgy-U-Type Natriuretic Peptide 2418 pg/mL (0-124) Total Protein 7.7 g/dL (6.4-8.2) Albumin 3.8 g/dL (3.4-5.0) Albumin/Globulin Ratio 1.0 (1.0-1.7) Heparin Anti-Xa Act, Unfractionated 0.52 IU/mL (0.30-0.70) Glucose (Fingerstick) 358 mg/dL (70-99) 353 mg/dL (70-99) Test 12/05/19 12:10 12/05/19 15:30 Heparin Anti-Xa Act, Unfractionated 0.77 IU/mL (0.30-0.70) Troponin I Quantitative 0.017 ng/mL (0.000-0.055) Laboratory Tests Test 12/04/19 18:28 12/05/19 04:35 12/05/19 08:32 12/05/19 11:59 White Blood Count 10.4 x10^3/uL (4.0-11.0) Red Blood Count 4.01 x10^6/uL (3.50-5.40) Hemoglobin 13.1 g/dL (12.0-15.5) Hematocrit 38.6 % (36.0-47.0) Mean Corpuscular Volume 96 fL (79-100) Mean Corpuscular Hemoglobin 33 pg (25-35) Mean Corpuscular Hemoglobin Concent 34 g/dL (31-37) Red Cell Distribution Width 13.4 % (11.5-14.5) Platelet Count 238 x10^3/uL (140-400) Neutrophils (%) (Auto) 63 % (31-73) Lymphocytes (%) (Auto) 23 % (24-48) Monocytes (%) (Auto) 12 % (0-9) Eosinophils (%) (Auto) 2 % (0-3) Basophils (%) (Auto) 0 % (0-3) Neutrophils # (Auto) 6.6 x10^3/uL (1.8-7.7) Lymphocytes # (Auto) 2.4 x10^3/uL (1.0-4.8) Monocytes # (Auto) 1.3 x10^3/uL (0.0-1.1) Eosinophils # (Auto) 0.2 x10^3/uL (0.0-0.7) Basophils # (Auto) 0.0 x10^3/uL (0.0-0.2) Prothrombin Time 14.1 SEC (11.7-14.0) Prothromb Time International Ratio 1.1 (0.8-1.1) Activated Partial Thromboplast Time 29 SEC (24-38) D-Dimer (Kathy) 6.42 ug/mlFEU (0.00-0.50) Sodium Level 140 mmol/L (136-145) Potassium Level 3.7 mmol/L (3.5-5.1) Chloride Level 103 mmol/L (98-107) Carbon Dioxide Level 28 mmol/L (21-32) Anion Gap 9 (6-14) Blood Urea Nitrogen 15 mg/dL (7-20) Creatinine 0.7 mg/dL (0.6-1.0) Estimated GFR (Cockcroft-Gault) 102.3 BUN/Creatinine Ratio 21 (6-20) Glucose Level 139 mg/dL (70-99) Calcium Level 9.6 mg/dL (8.5-10.1) Total Bilirubin 0.4 mg/dL (0.2-1.0) Aspartate Amino Transf (AST/SGOT) 18 U/L (15-37) Alanine Aminotransferase (ALT/SGPT) 41 U/L (14-59) Alkaline Phosphatase 74 U/L (46-116) Troponin I Quantitative 0.088 ng/mL (0.000-0.055) JV-Ros-F-Type Natriuretic Peptide 2418 pg/mL (0-124) Total Protein 7.7 g/dL (6.4-8.2) Albumin 3.8 g/dL (3.4-5.0) Albumin/Globulin Ratio 1.0 (1.0-1.7) Heparin Anti-Xa Act, Unfractionated 0.52 IU/mL (0.30-0.70) Glucose (Fingerstick) 358 mg/dL (70-99) 353 mg/dL (70-99) Test 12/05/19 12:10 12/05/19 15:30 Heparin Anti-Xa Act, Unfractionated 0.77 IU/mL (0.30-0.70) Troponin I Quantitative 0.017 ng/mL (0.000-0.055) Images Images Ultrasound Doppler of the lower extremities: 1. There is long segment occlusive thrombus from the left common femoral vein to the popliteal vein. 2. Interrogated right lower extremity veins are patent. CTA chest: 1. Extensive right-sided pulmonary emboli with small left-sided pulmonary emboli. 2. Mildly dilated right ventricle, may indicate right heart strain. 3. Small right upper lobe peripheral groundglass opacity, may represent developing infarct. 4. Small pulmonary nodules. Recommend one-year follow-up if high risk. Assessment/Plan Assessment/Plan Assessment: Pulmonary embolism, provoked Deep venous thrombosis, left lower extremity, provoked History of unprovoked DVT Family history of VTE Recent L2-L3 laminectomy and fusion Lung nodules Recommendations: -Given the patient's history of DVT and current presentation with PE and right heart strain, would consider her to be at increased risk for thromboembolism in the future. -While her current VTE episode can be considered provoked from recent surgery, her history of unprovoked DVT is troublesome and indefinite anticoagulation should be considered -Given significant family history of deep venous thrombosis in the patient's personal history of VTE, I recommended further evaluation for inherited and acquired thrombophilia syndromes -I ordered testing for lupus anticoagulant, anti-beta-2 glycoprotein antibody, anticardiolipin antibody, anti-thrombin 3 activity, protein C and protein S activity -Factor V Leiden and prothrombin gene mutation testing are not available inpatient. Will pursue these on an outpatient basis -Continue with therapeutic anticoagulation. Can discharge on Lovenox or warfarin or DOAC -Follow-up will be arranged with me post hospital discharge to review results of hypercoagulable work-up since I expect she may be discharged by then -Other care per Dr. Mayberry -Management of lung nodules per Dr. Madeline Barragan MD Medical Oncology/Hematology Ph: [phone] NGHIA BARRAGAN MD Dec 05, 2019 16:48
[2019-12-05] MEDS: ANTI-COAG MONITOR BY PHARMACY. MC PRN ×3 (17:01→17:05)
[2019-12-05] MEDS: ATORVASTATIN CALCIUM 40 MG TABLET. PO SCH (21:28)
[2019-12-06 02:54] VITALS: BP 134/88
[2019-12-06] MEDS: HEPARIN 25,000UTS/250ML PREMIX 250 ML IV PRN (05:21)
[2019-12-06 07:20] VITALS: BP 143/80
[2019-12-06 07:31] LABS: HEMATOCRIT 34.9 % (36.0-47.0); HEMOGLOBIN 11.8 g/dL (12.0-15.5); RED BLOOD COUNT 3.63 x10^6/uL (3.50-5.40); RED CELL DISTRIBUTION WIDTH 13.3 % (11.5-14.5)
[2019-12-06 07:37] LABS: CHOLESTEROL/HDL RATIO 2.7
[2019-12-06 07:51] LABS: CALCIUM 9.3 mg/dL (8.5-10.1); CREATININE 0.8 mg/dL (0.6-1.0); GFR 87.7; POTASSIUM 3.7 mmol/L (3.5-5.1)
[2019-12-06] MEDS: TRIAMTERENE/HCTZ 37.5/25MG TABLET. PO SCH (09:16)
[2019-12-06] MEDS: CARVEDILOL 3.125 MG TABLET. PO SCH ×2 (09:18→16:58)
[2019-12-06] MEDS: FENOFIBRATE 54 MG TABLET. PO SCH (09:18)
[2019-12-06] MEDS: FUROSEMIDE 40 MG TABLET. PO SCH (09:18)
[2019-12-06] MEDS: INSULIN LISPRO 300 UNITS/3 ML VIAL. SQ SCH ×3 (09:22→16:59)
[2019-12-06 10:42] VITALS: BP 106/74
--- NOTE | 2019-12-06 11:16 | NUR ---
SS following up with discharge planning. SS reviewed pt chart and discussed with pt RN. Pt is currently requiring oxygen. Pt on Heparin drip. Pt has had services with [facility], ; fax [phone], in the past. SS will continue to follow for discharge planning.
[2019-12-06] MEDS: APIXABAN 5 MG TABLET. PO SCH ×2 (11:17→21:31)
--- NOTE | 2019-12-06 11:30 | PDOC ---
PULMONARY PROGRESS NOTES DATE: 12/06/19 TIME: 11:28 Subjective less soa Vitals Vital Signs Date Time Temp Pulse Resp B/P (MAP) Pulse Ox O2 Delivery O2 Flow Rate FiO2 12/06/19 10:42 97.8 85 24 106/74 (85) 99 Nasal Cannula 2.0 97.8 General: Alert, No acute distress Lungs: Clear Cardiovascular: S1 Abdomen: Soft, Other (obese) Neuro Exam: Alert Extremities: No Edema Skin: Warm Labs Laboratory Tests Test 12/04/19 18:28 12/05/19 04:35 12/05/19 08:32 12/05/19 11:59 White Blood Count 10.4 x10^3/uL (4.0-11.0) Red Blood Count 4.01 x10^6/uL (3.50-5.40) Hemoglobin 13.1 g/dL (12.0-15.5) Hematocrit 38.6 % (36.0-47.0) Mean Corpuscular Volume 96 fL (79-100) Mean Corpuscular Hemoglobin 33 pg (25-35) Mean Corpuscular Hemoglobin Concent 34 g/dL (31-37) Red Cell Distribution Width 13.4 % (11.5-14.5) Platelet Count 238 x10^3/uL (140-400) Neutrophils (%) (Auto) 63 % (31-73) Lymphocytes (%) (Auto) 23 % (24-48) Monocytes (%) (Auto) 12 % (0-9) Eosinophils (%) (Auto) 2 % (0-3) Basophils (%) (Auto) 0 % (0-3) Neutrophils # (Auto) 6.6 x10^3/uL (1.8-7.7) Lymphocytes # (Auto) 2.4 x10^3/uL (1.0-4.8) Monocytes # (Auto) 1.3 x10^3/uL (0.0-1.1) Eosinophils # (Auto) 0.2 x10^3/uL (0.0-0.7) Basophils # (Auto) 0.0 x10^3/uL (0.0-0.2) Prothrombin Time 14.1 SEC (11.7-14.0) Prothromb Time International Ratio 1.1 (0.8-1.1) Activated Partial Thromboplast Time 29 SEC (24-38) D-Dimer (Kathy) 6.42 ug/mlFEU (0.00-0.50) Sodium Level 140 mmol/L (136-145) Potassium Level 3.7 mmol/L (3.5-5.1) Chloride Level 103 mmol/L (98-107) Carbon Dioxide Level 28 mmol/L (21-32) Anion Gap 9 (6-14) Blood Urea Nitrogen 15 mg/dL (7-20) Creatinine 0.7 mg/dL (0.6-1.0) Estimated GFR (Cockcroft-Gault) 102.3 BUN/Creatinine Ratio 21 (6-20) Glucose Level 139 mg/dL (70-99) Calcium Level 9.6 mg/dL (8.5-10.1) Total Bilirubin 0.4 mg/dL (0.2-1.0) Aspartate Amino Transf (AST/SGOT) 18 U/L (15-37) Alanine Aminotransferase (ALT/SGPT) 41 U/L (14-59) Alkaline Phosphatase 74 U/L (46-116) Troponin I Quantitative 0.088 ng/mL (0.000-0.055) UV-Fsr-N-Type Natriuretic Peptide 2418 pg/mL (0-124) Total Protein 7.7 g/dL (6.4-8.2) Albumin 3.8 g/dL (3.4-5.0) Albumin/Globulin Ratio 1.0 (1.0-1.7) Heparin Anti-Xa Act, Unfractionated 0.52 IU/mL (0.30-0.70) Glucose (Fingerstick) 358 mg/dL (70-99) 353 mg/dL (70-99) Test 12/05/19 12:10 12/05/19 15:30 12/05/19 17:30 12/05/19 19:05 Heparin Anti-Xa Act, Unfractionated 0.77 IU/mL (0.30-0.70) 0.76 IU/mL (0.30-0.70) Troponin I Quantitative 0.017 ng/mL (0.000-0.055) Glucose (Fingerstick) 256 mg/dL (70-99) Test 12/05/19 21:25 12/06/19 06:50 12/06/19 07:09 12/06/19 11:20 Glucose (Fingerstick) 254 mg/dL (70-99) 216 mg/dL (70-99) 155 mg/dL (70-99) White Blood Count 11.0 x10^3/uL (4.0-11.0) Red Blood Count 3.63 x10^6/uL (3.50-5.40) Hemoglobin 11.8 g/dL (12.0-15.5) Hematocrit 34.9 % (36.0-47.0) Mean Corpuscular Volume 96 fL (79-100) Mean Corpuscular Hemoglobin 33 pg (25-35) Mean Corpuscular Hemoglobin Concent 34 g/dL (31-37) Red Cell Distribution Width 13.3 % (11.5-14.5) Platelet Count 232 x10^3/uL (140-400) Heparin Anti-Xa Act, Unfractionated 0.69 IU/mL (0.30-0.70) Sodium Level 138 mmol/L (136-145) Potassium Level 3.7 mmol/L (3.5-5.1) Chloride Level 103 mmol/L (98-107) Carbon Dioxide Level 26 mmol/L (21-32) Anion Gap 9 (6-14) Blood Urea Nitrogen 21 mg/dL (7-20) Creatinine 0.8 mg/dL (0.6-1.0) Estimated GFR (Cockcroft-Gault) 87.7 Glucose Level 208 mg/dL (70-99) Calcium Level 9.3 mg/dL (8.5-10.1) Triglycerides Level 93 mg/dL (0-150) Cholesterol Level 144 mg/dL (0-200) LDL Cholesterol, Calculated 71 mg/dL (0-100) VLDL Cholesterol, Calculated 19 mg/dL (0-40) Non-HDL Cholesterol Calculated 90 mg/dL (0-129) HDL Cholesterol 54 mg/dL (40-60) Cholesterol/HDL Ratio 2.7 Laboratory Tests Test 12/05/19 11:59 12/05/19 12:10 12/05/19 15:30 12/05/19 17:30 Glucose (Fingerstick) 353 mg/dL (70-99) 256 mg/dL (70-99) Heparin Anti-Xa Act, Unfractionated 0.77 IU/mL (0.30-0.70) Troponin I Quantitative 0.017 ng/mL (0.000-0.055) Test 12/05/19 19:05 12/05/19 21:25 12/06/19 06:50 12/06/19 07:09 Heparin Anti-Xa Act, Unfractionated 0.76 IU/mL (0.30-0.70) 0.69 IU/mL (0.30-0.70) Glucose (Fingerstick) 254 mg/dL (70-99) 216 mg/dL (70-99) White Blood Count 11.0 x10^3/uL (4.0-11.0) Red Blood Count 3.63 x10^6/uL (3.50-5.40) Hemoglobin 11.8 g/dL (12.0-15.5) Hematocrit 34.9 % (36.0-47.0) Mean Corpuscular Volume 96 fL (79-100) Mean Corpuscular Hemoglobin 33 pg (25-35) Mean Corpuscular Hemoglobin Concent 34 g/dL (31-37) Red Cell Distribution Width 13.3 % (11.5-14.5) Platelet Count 232 x10^3/uL (140-400) Sodium Level 138 mmol/L (136-145) Potassium Level 3.7 mmol/L (3.5-5.1) Chloride Level 103 mmol/L (98-107) Carbon Dioxide Level 26 mmol/L (21-32) Anion Gap 9 (6-14) Blood Urea Nitrogen 21 mg/dL (7-20) Creatinine 0.8 mg/dL (0.6-1.0) Estimated GFR (Cockcroft-Gault) 87.7 Glucose Level 208 mg/dL (70-99) Calcium Level 9.3 mg/dL (8.5-10.1) Triglycerides Level 93 mg/dL (0-150) Cholesterol Level 144 mg/dL (0-200) LDL Cholesterol, Calculated 71 mg/dL (0-100) VLDL Cholesterol, Calculated 19 mg/dL (0-40) Non-HDL Cholesterol Calculated 90 mg/dL (0-129) HDL Cholesterol 54 mg/dL (40-60) Cholesterol/HDL Ratio 2.7 Test 12/06/19 11:20 Glucose (Fingerstick) 155 mg/dL (70-99) Medications Active Scripts Medications Dose Route/Sig Max Daily Dose Days Date Category Dose Instructions Ventolin Hfa Inhaler (Albuterol Sulfate) 18 Gm Hfa.aer.ad 2 Puff INH QID 12/05/19 Reported Fenofibrate 54 Mg Tablet 1 Tab PO DAILY 12/05/19 Reported Advair 250-50 Diskus (Fluticasone/Salmeterol) 1 Each Disk.w.dev 1 Puff IH BID 12/05/19 Reported Glimepiride 1 Mg Tablet 1 Tab PO DAILY 12/05/19 Reported Atorvastatin Calcium 40 Mg Tablet 1 Tab PO QHS 12/05/19 Reported Percocet 5-325 Mg Tablet (Oxycodone/Acetaminophen) 1 Each Tablet 1 Tab PO PRN Q4HRS PRN 11/08/19 Rx [hormone bj] 08/03/16 Reported Triamcinolone Acetonide 0.025% Cream (Triamcinolone Acetonide) 15 Gm Cream..g. 1 Sherie TP DAILY PRN 01/10/15 Reported Furosemide 40 Mg Tablet 40 Mg PO DAILY 01/10/15 Reported Metformin Hcl 500 Mg Tablet 1 Tab PO DAILYWBKFT 01/10/15 Reported Do not take for 48hours after procedure. Next dose evening dose 08/05/16 Coreg (Carvedilol) 3.125 Mg Tablet 3.125 Mg PO BID 01/17/14 Reported Triamterene-Hctz 37.5-25 Mg Tb (Triamterene/Hydrochlorothiazid) 1 Each Tablet 1 Tab PO DAILY 01/17/14 Reported Impression . 1. Acute hypoxic respiratory failure secondary to acute pulmonary embolism with evidence of right ventricular strain. Risk factors being recent spinal/lumbar surgery, underlying obesity and possible hypercoagulable state. Her uncles had history of pulmonary embolism. 2. Abnormal CT chest with extensive pulmonary embolism as discussed above, mostly on the right side, but minimally on the left side as well. There were tiny 2-3 mm nodule, which may be noncalcified granulomas and will need to have a followup. She has no known malignancy. 3. Underlying obesity. 4. No significant tobacco history. 5. Rule out hypercoagulable state. Plan . 1. Continue p.r.n. oxygen to keep saturation 96 and above. 2. venous Dopplers of lower extremities with Left DVT 3. We will obtain hypercoagulable panel as an outpatient. 4. Continue heparin and switch to Eliquis today 5. 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 6. echocardiogram with normal RV function and grade 2 DD 7. Discussed with and discussed with Dr. Conner. CHARU SCALES MD Dec 06, 2019 11:30
--- NOTE | 2019-12-06 12:28 | PDOC ---
[employer] PROGRESS NOTE Date of Service DOS: DATE: 12/06/19 TIME: 12:24 Chief Complaint Chief Complaint Dyspnea. History of Present Illness History of Present Illness 12/06/2019 Pt seen and examined. DW with RN and CM. Pending Echo and coagulation assays. Discussed benefits of lifelong anticoagulation. Vitals/I&O Vitals/I&O: Vital Signs Date Time Temp Pulse Resp B/P (MAP) Pulse Ox O2 Delivery O2 Flow Rate FiO2 12/06/19 10:42 97.8 85 24 106/74 (85) 99 Nasal Cannula 2.0 97.8 I & O 12/05/19 12/05/19 12/06/19 15:00 23:00 07:00 Intake Total 260 ml 200 ml 0 ml Output Total 1200 ml Balance 260 ml 200 ml -1200 ml Physical Exam General: Alert, Oriented X3, Cooperative Heart: Regular rate, Normal S1, Normal S2 Lungs: Clear Abdomen: Normal bowel sounds, Soft Extremities: No clubbing, No cyanosis Skin: No rashes, Other (Well healed paraspinal surgical scar to lumbar area.) Labs Labs: Laboratory Tests Test 12/05/19 15:30 12/05/19 17:30 12/05/19 19:05 12/05/19 21:25 Troponin I Quantitative 0.017 ng/mL (0.000-0.055) Glucose (Fingerstick) 256 mg/dL (70-99) 254 mg/dL (70-99) Heparin Anti-Xa Act, Unfractionated 0.76 IU/mL (0.30-0.70) Test 12/06/19 06:50 12/06/19 07:09 12/06/19 11:20 White Blood Count 11.0 x10^3/uL (4.0-11.0) Red Blood Count 3.63 x10^6/uL (3.50-5.40) Hemoglobin 11.8 g/dL (12.0-15.5) Hematocrit 34.9 % (36.0-47.0) Mean Corpuscular Volume 96 fL (79-100) Mean Corpuscular Hemoglobin 33 pg (25-35) Mean Corpuscular Hemoglobin Concent 34 g/dL (31-37) Red Cell Distribution Width 13.3 % (11.5-14.5) Platelet Count 232 x10^3/uL (140-400) Heparin Anti-Xa Act, Unfractionated 0.69 IU/mL (0.30-0.70) Sodium Level 138 mmol/L (136-145) Potassium Level 3.7 mmol/L (3.5-5.1) Chloride Level 103 mmol/L (98-107) Carbon Dioxide Level 26 mmol/L (21-32) Anion Gap 9 (6-14) Blood Urea Nitrogen 21 mg/dL (7-20) Creatinine 0.8 mg/dL (0.6-1.0) Estimated GFR (Cockcroft-Gault) 87.7 Glucose Level 208 mg/dL (70-99) Calcium Level 9.3 mg/dL (8.5-10.1) Triglycerides Level 93 mg/dL (0-150) Cholesterol Level 144 mg/dL (0-200) LDL Cholesterol, Calculated 71 mg/dL (0-100) VLDL Cholesterol, Calculated 19 mg/dL (0-40) Non-HDL Cholesterol Calculated 90 mg/dL (0-129) HDL Cholesterol 54 mg/dL (40-60) Cholesterol/HDL Ratio 2.7 Glucose (Fingerstick) 216 mg/dL (70-99) 155 mg/dL (70-99) Review of Systems Review of Systems: Denies chest pain. Denies fever or cough. Assessment and Plan Assessmemt and Plan Problems Medical Problems: (1) Elevated troponin Status: Acute (2) Pulmonary embolism Status: Acute Assessment: Pulmonary embolus. DVT. Family history of DVT. Plan: IV heparin, with plans of changing to eliquis this afternoon. 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 Appreciate subspecialty input. DC pending subspecialty input. Comment Review of Relevant I have reviewed the following items casey (where applicable) has been applied. Medications: Current Medications Medications (Trade) Dose Ordered Sig/Nina Route PRN Reason Start Time Stop Time Status Last Admin Dose Admin Insulin Human Lispro (HumaLOG) 0-7 UNITS TIDWMEALS SQ 12/05/19 12:45 12/06/19 09:22 Atorvastatin Calcium (Lipitor) 40 mg QHS PO 12/05/19 21:00 12/05/19 21:28 Carvedilol (Coreg) 3.125 mg BIDWMEALS PO 12/05/19 17:00 12/06/19 09:18 Fenofibrate (Lofibra) 54 mg DAILY PO 12/05/19 16:00 12/06/19 09:18 Furosemide (Lasix) 40 mg DAILY PO 12/05/19 15:00 12/06/19 09:18 Triamterene/HCTZ (Maxzide 37.5/ 25mg) 1 tab DAILY PO 12/05/19 16:00 12/06/19 09:16 Info (Anti-Coagulation Monitoring By Pharmacy) 1 each PRN DAILY PRN MC SEE COMMENTS 12/05/19 17:00 12/05/19 17:05 Apixaban (Eliquis) 10 mg BID PO 12/06/19 11:00 12/12/19 21:01 12/06/19 11:17 Justifications for Admission Other Justification JARON VILLASEÑOR III DO Dec 06, 2019 12:28
--- NOTE | 2019-12-06 12:55 | PDOC ---
JAMAL ROSA OPERATIONS RESEARCH ANALYST 12/06/19 1255: CARDIO Progress Notes Date and Time Date of Service 12/06/19 Time of Evaluation 1240 Subjective Subjective: No Chest Pain, No Palpitations, Other (less SOA today ) Vitals Vitals Vital Signs Date Time Temp Pulse Resp B/P (MAP) Pulse Ox O2 Delivery O2 Flow Rate FiO2 12/06/19 10:42 97.8 85 24 106/74 (85) 99 Nasal Cannula 2.0 97.8 Weight Weight [ ] Input and Output Intake and Output Intake and Output 12/06/19 07:00 Intake Total 460 ml Output Total 1200 ml Balance -740 ml Intake Oral 460 ml Output Urine Total 1200 ml # Voids 1 Laboratory Labs Laboratory Tests Test 12/05/19 15:30 12/05/19 17:30 12/05/19 19:05 12/05/19 21:25 Troponin I Quantitative 0.017 ng/mL (0.000-0.055) Glucose (Fingerstick) 256 mg/dL (70-99) 254 mg/dL (70-99) Heparin Anti-Xa Act, Unfractionated 0.76 IU/mL (0.30-0.70) Test 12/06/19 06:50 12/06/19 07:09 12/06/19 11:20 White Blood Count 11.0 x10^3/uL (4.0-11.0) Red Blood Count 3.63 x10^6/uL (3.50-5.40) Hemoglobin 11.8 g/dL (12.0-15.5) Hematocrit 34.9 % (36.0-47.0) Mean Corpuscular Volume 96 fL (79-100) Mean Corpuscular Hemoglobin 33 pg (25-35) Mean Corpuscular Hemoglobin Concent 34 g/dL (31-37) Red Cell Distribution Width 13.3 % (11.5-14.5) Platelet Count 232 x10^3/uL (140-400) Heparin Anti-Xa Act, Unfractionated 0.69 IU/mL (0.30-0.70) Sodium Level 138 mmol/L (136-145) Potassium Level 3.7 mmol/L (3.5-5.1) Chloride Level 103 mmol/L (98-107) Carbon Dioxide Level 26 mmol/L (21-32) Anion Gap 9 (6-14) Blood Urea Nitrogen 21 mg/dL (7-20) Creatinine 0.8 mg/dL (0.6-1.0) Estimated GFR (Cockcroft-Gault) 87.7 Glucose Level 208 mg/dL (70-99) Calcium Level 9.3 mg/dL (8.5-10.1) Triglycerides Level 93 mg/dL (0-150) Cholesterol Level 144 mg/dL (0-200) LDL Cholesterol, Calculated 71 mg/dL (0-100) VLDL Cholesterol, Calculated 19 mg/dL (0-40) Non-HDL Cholesterol Calculated 90 mg/dL (0-129) HDL Cholesterol 54 mg/dL (40-60) Cholesterol/HDL Ratio 2.7 Glucose (Fingerstick) 216 mg/dL (70-99) 155 mg/dL (70-99) Physical Exam Chest: Symmetric LUNGS: Clear to Auscultation Heart: RRR Abdomen: Soft N/T Extremities: No Edema Neurology: alert, oriented, follow commands Assessment Assessment 1. Dyspnea with acute PE; Eliquis initiated. Echo with normal RV function. continue as per pulm 2. H/o NICM; LVEF perviously 25%. Most recent echo 08/07 showed LV recovery with EF 55%. clinically compensated. Continue coreg, lasix therapy 3. Elevated troponin; peak 0.08. type II, demand ischemic in the setting of PE. Cath 08/04 without significant CAD. CP free. 4. Hypertension; now controlled 5. Hyperlipidemia; statin. LDL 71 6. Diabetes,II; as per PCP 7. JESSICA wtih CPAP 8. Venous insufficiency; s/p catheter ablation; clinically stable Justicifation of Admission Dx: Justifications for Admission: Justification of Admission Dx: Yes Acute COPD Exacerbation: Acute COPD Exacerbation DC: Acute NSTEMI ROBERTO SHAIKH MD 12/07/19 0720: CARDIO Progress Notes Assessment Assessment Patient seen and examined 12/06/19. Agree with BARRATTE OPERATOR's assessment and plan. Continue AC for acute PE per pulm team h/p NICM with echo showing normalized LVEF Slight trop elevation prob demand ischemia BP better controlled JAMAL ROSA APRN Dec 06, 2019 12:55 ROBERTO SHAIKH MD Dec 07, 2019 07:20
--- NOTE | 2019-12-06 14:34 | PDOC ---
Provider Note Date of Service: DATE: 12/05/19 TIME: 16:31 Provider Note LATE ENTRY patient seen and examined 12/04 at 1630 s/p instrumented lumbar fusion 1 month ago admitted with SOA/ PE doing well with regard to lumbar surgery with improvement in back and leg pain incision well healed strength 5/5 in BLE being followed by pulmonary Justifications for Admission Other Justification BETZY LARRY MD Dec 06, 2019 14:34
[2019-12-06 14:37] VITALS: BP 115/68
--- NOTE | 2019-12-06 14:38 | CARD ---
MR#: [id number] Date of Study: 12/06/2019 Ordering Physician: CHARU SCALES, Referring Physician: CHARU SCALES Tech: Sandie Forde RDCS APPROVED REPORT EXAM: LIMITED Two-dimensional echocardiogram Other Information Quality : Technically Limited Technically limited study due to body habitus. INDICATION Pulmonary Embolism Tricuspid Valve TR P. [id number] Peak Gr.15mmHg LEFT VENTRICLE The left ventricular systolic function is normal. The Ejection Fraction is 55%. There is normal LV se gmental wall motion. RIGHT VENTRICLE The right ventricle is normal size. The right ventricular systolic function is normal. ATRIA The right atrium size is normal. GREAT VESSELS The IVC is normal in size and collapses >50% with inspiration. PERICARDIAL EFFUSION There is no evidence of significant pericardial effusion. Critical Notification Critical Value: No <Conclusion> Limited 2D echocardiogram. The left ventricular systolic function is normal. The Ejection Fraction is 55%. There is normal LV segmental wall motion. There is no evidence of significant pericardial effusion. Signed by : Danny Ahn, Electronically Approved : 12/06/2019 14:37:43
[2019-12-06] MEDS ORDERED: OXYC1TAB20 PO (16:00)
[2019-12-06] MEDS: oxyCODONE/APAP 5/325 1 TAB TABLET PO PRN ×2 (16:56→22:00)
[2019-12-06 19:49] VITALS: BP 118/78
[2019-12-06] MEDS: ATORVASTATIN CALCIUM 40 MG TABLET. PO SCH (21:32)
[2019-12-06 23:39] VITALS: BP 138/74
[2019-12-07 02:09] VITALS: BP 117/72
[2019-12-07 07:32] VITALS: BP 126/76
[2019-12-07] MEDS: FENOFIBRATE 54 MG TABLET. PO SCH (08:32)
[2019-12-07] MEDS: FUROSEMIDE 40 MG TABLET. PO SCH (08:33)
[2019-12-07] MEDS: APIXABAN 5 MG TABLET. PO SCH (08:33)
[2019-12-07] MEDS: CARVEDILOL 3.125 MG TABLET. PO SCH (08:34)
[2019-12-07] MEDS: TRIAMTERENE/HCTZ 37.5/25MG TABLET. PO SCH (08:35)
[2019-12-07] MEDS: oxyCODONE/APAP 5/325 1 TAB TABLET PO PRN (08:35)
[2019-12-07] MEDS: INSULIN LISPRO 300 UNITS/3 ML VIAL. SQ SCH ×2 (08:40→12:00)
[2019-12-07 10:29] VITALS: BP 127/80
--- NOTE | 2019-12-07 11:35 | PDOC ---
[employer] PROGRESS NOTE Date of Service DOS: DATE: 12/07/19 TIME: 11:30 Chief Complaint Chief Complaint Dyspnea. History of Present Illness History of Present Illness 12/07/2019 Pt seen and exmained. Discussed with RN and CM. Discussed with daughter in room. Pt is agreeable to home oxygen and pulse ox. 12/06/2019 Pt seen and examined. DW with RN and CM. Pending Echo and coagulation assays. Discussed benefits of lifelong anticoagulation. Vitals/I&O Vitals/I&O: Vital Signs Date Time Temp Pulse Resp B/P (MAP) Pulse Ox O2 Delivery O2 Flow Rate FiO2 12/07/19 10:29 97.4 84 18 127/80 (96) 96 Nasal Cannula 2.0 97.4 I & O 12/06/19 12/06/19 12/07/19 15:00 23:00 07:00 Intake Total 260 ml 240 ml 240 ml Output Total 1100 ml 200 ml Balance -840 ml 240 ml 40 ml Physical Exam General: Alert, Oriented X3, Cooperative Heart: Regular rate, Normal S1, Normal S2 Lungs: Clear Abdomen: Normal bowel sounds, Soft Extremities: No clubbing, No cyanosis Skin: No rashes, Other (Well healed paraspinal surgical scar to lumbar area.) Labs Labs: Laboratory Tests Test 12/06/19 16:23 12/06/19 21:29 12/07/19 07:18 12/07/19 11:09 Glucose (Fingerstick) 111 mg/dL (70-99) 161 mg/dL (70-99) 181 mg/dL (70-99) 163 mg/dL (70-99) Review of Systems Review of Systems: No fever. No cough Assessment and Plan Assessmemt and Plan Problems Medical Problems: (1) Elevated troponin Status: Acute (2) Pulmonary embolism Status: Acute Assessment: Pulmonary embolism. DVT Fx DVT. Hx peripheral vascular disease. Plan: Consider home oxygen pending 6 minute walk. Consider home pulse ox. Continue eliquis as prescribed. Home Meds. DVT prophylaxis. PT OT Appreciate subspecialty care. Comment Review of Relevant I have reviewed the following items casey (where applicable) has been applied. Medications: Current Medications Medications (Trade) Dose Ordered Sig/Nina Route PRN Reason Start Time Stop Time Status Last Admin Dose Admin Oxycodone/ Acetaminophen (Percocet 5/325) 1 tab PRN Q4HRS PRN PO MILD PAIN, 1ST CHOICE 12/06/19 16:30 12/07/19 08:35 Justifications for Admission Other Justification JARON VILLASEÑOR III DO Dec 07, 2019 11:35
--- NOTE | 2019-12-07 11:42 | NUR ---
SW following. Discussed with RN, pt from home, cardiac diet, using 2L oxygen for comfort - but apparently does not actually need it. PETRA requested RN to please titrate prior to discharge, or do a 6 minute walk so oxygen can be arranged for home if needed. RN advised no other SW needs, anticipates discharge home with self care today. PETRA will continue to follow. Addendum: 12/07/19 at 1406 by KOBE LAMBERT Pt declining home health still. 6 minute walk completed, pt needs 2L oxygen with exertion. PETRA met with pt and pt's family - they are ready to take her home. Due to need for edwards, pt agreeable to referral to [facility] for o2 as PETRA has tanks available in PETRA office. PETRA faxed clinicals and referral to [facility], awaiting confirmation. RN notified.
--- NOTE | 2019-12-07 11:54 | SNU/HH DC ---
DISCHARGE WITH HOME HEALTH DISCHARGE INFORMATION: Final Diagnosis: Problems Medical Problems: (1) Elevated troponin Status: Acute (2) Pulmonary embolism Status: Acute Condition on Discharge: Stable CODE STATUS: Code Status: Full HOME HEALTH: Face to Face: I certify this patient is under my care and that I, or a nurse practitioner or physician's information assistant working with me, had a face to face encounter that meets the physician face to face encounter requirements with this patient on []. Medical Complications: Other (Recent pulmonary embolism) Senior Living For: Assess Cardiopulm Status RN For Eval/Treatment: Yes Physical Therapy For: Evalulation/Treatment Occupational Therapy For: Evaluation/Treatment Home Health Aide For: Self-care KEYBOARD SPECIALIST For: Community Resources Pt Meets Homebound Status: Poor coordination w/ amb. POST DISCHARGE ORDERS: Activity Instructions for Disc: Activity as tolerated, Walk in house Weight Bearing Status after Di: No restrictions, Full weight bearing, As tolerated Bathing Instructions: Shower-keep dressing dry, No Tub Bath until see DIET AFTER DISCHARGE: Cardiac Wound/Incision Care: Ice to area for comfort, Keep wound/cast CDI, Change dressing TREATMENT/EQUIPMENT ORDERS: Adaptive Equipment Issued: None CERTIFICATION STATEMENT: Certification Statement: Certification Statement: Based on the above finding, I certify that this patient is confined to the home and needs intermittent usp care, physical therapy and/or speech therapy, or continues to need occupational therapy.~ This patient is under my care, and I have initiated the establishment of the plan of care.~ This patient will be followed by myself or a community physician who will periodically review the plan of care. Home Meds Active Scripts Oxycodone/Apap 5-325 (PERCOCET 5-325 MG TABLET ) 1 Each Tablet, 1 TAB PO PRN Q4HRS PRN for MILD PAIN, 1ST CHOICE, #40 TAB Prov:BETZY LARRY MD 11/08/19 Reported Medications Oxycodone Hcl/Acetaminophen (OXYCODONE-ACETAMINOPHEN 10-325) 1 Each Tablet, 10- 325 MG PO PRN QID PRN for PAIN 12/06/19 Albuterol Sulfate (VENTOLIN HFA INHALER) 18 Gm Hfa.aer.ad, 2 PUFF INH QID for FOR ASTHMA, INHALER 0 Refills 12/05/19 Fenofibrate (FENOFIBRATE) 54 Mg Tablet, 1 TAB PO DAILY for HLD, #30 TAB 5 Refills 12/05/19 Fluticasone/Salmeterol (ADVAIR 250-50 DISKUS) 1 Each Disk.w.dev, 1 PUFF IH BID for asthma, #3 INHALER 3 Refills 12/05/19 Glimepiride (GLIMEPIRIDE) 1 Mg Tablet, 1 TAB PO DAILY for DM, #30 TAB 5 Refills 12/05/19 Atorvastatin Calcium (ATORVASTATIN CALCIUM) 40 Mg Tablet, 1 TAB PO QHS for HLD, #90 TAB 3 Refills 12/05/19 [hormone bj] No Conflict Check 08/03/16 Triamcinolone Acetonide (TRIAMCINOLONE ACETONIDE 0.025% CREAM) 15 Gm Cream..g., 1 LIGIA TP DAILY PRN for RASH, TUBE 01/10/15 Furosemide (FUROSEMIDE) 40 Mg Tablet, 40 MG PO DAILY for DIURETIC, TAB 01/10/15 Metformin Hcl (METFORMIN HCL) 500 Mg Tablet, 1 TAB PO DAILYWBKFT for DIABETES, #180 TAB 3 Refills Do not take for 48hours after procedure. Next dose evening dose 08/05/16 01/10/15 Carvedilol (COREG ) 3.125 Mg Tablet, 3.125 MG PO BID for HEART, TAB 01/17/14 Triamterene/Hydrochlorothiazid (TRIAMTERENE-HCTZ 37.5-25 MG TB) 1 Each Tablet, 1 TAB PO DAILY for BLOOD PRESSURE, TAB 01/17/14 JARON VILLASEÑOR III DO Dec 07, 2019 11:54
--- NOTE | 2019-12-07 11:54 | PDOC ---
PULMONARY PROGRESS NOTES DATE: 12/07/19 TIME: 11:49 Subjective continues to clinically improve, remains on N/C 2 liters reports mild SOB with ambulation Vitals Vital Signs Date Time Temp Pulse Resp B/P (MAP) Pulse Ox O2 Delivery O2 Flow Rate FiO2 12/07/19 10:29 97.4 84 18 127/80 (96) 96 Nasal Cannula 2.0 97.4 ROS: No Nausea, No Chest Pain, No Abdominal Pain, No Increase Cough General: Alert, No acute distress Lungs: Clear Cardiovascular: S1 Abdomen: Soft, Other (obese) Neuro Exam: Alert Extremities: No Edema Skin: Warm Labs Laboratory Tests Test 12/05/19 11:59 12/05/19 12:10 12/05/19 15:30 12/05/19 17:30 Glucose (Fingerstick) 353 mg/dL (70-99) 256 mg/dL (70-99) Heparin Anti-Xa Act, Unfractionated 0.77 IU/mL (0.30-0.70) Troponin I Quantitative 0.017 ng/mL (0.000-0.055) Test 12/05/19 19:05 12/05/19 21:25 12/06/19 06:50 12/06/19 07:09 Heparin Anti-Xa Act, Unfractionated 0.76 IU/mL (0.30-0.70) 0.69 IU/mL (0.30-0.70) Glucose (Fingerstick) 254 mg/dL (70-99) 216 mg/dL (70-99) White Blood Count 11.0 x10^3/uL (4.0-11.0) Red Blood Count 3.63 x10^6/uL (3.50-5.40) Hemoglobin 11.8 g/dL (12.0-15.5) Hematocrit 34.9 % (36.0-47.0) Mean Corpuscular Volume 96 fL (79-100) Mean Corpuscular Hemoglobin 33 pg (25-35) Mean Corpuscular Hemoglobin Concent 34 g/dL (31-37) Red Cell Distribution Width 13.3 % (11.5-14.5) Platelet Count 232 x10^3/uL (140-400) Sodium Level 138 mmol/L (136-145) Potassium Level 3.7 mmol/L (3.5-5.1) Chloride Level 103 mmol/L (98-107) Carbon Dioxide Level 26 mmol/L (21-32) Anion Gap 9 (6-14) Blood Urea Nitrogen 21 mg/dL (7-20) Creatinine 0.8 mg/dL (0.6-1.0) Estimated GFR (Cockcroft-Gault) 87.7 Glucose Level 208 mg/dL (70-99) Calcium Level 9.3 mg/dL (8.5-10.1) Triglycerides Level 93 mg/dL (0-150) Cholesterol Level 144 mg/dL (0-200) LDL Cholesterol, Calculated 71 mg/dL (0-100) VLDL Cholesterol, Calculated 19 mg/dL (0-40) Non-HDL Cholesterol Calculated 90 mg/dL (0-129) HDL Cholesterol 54 mg/dL (40-60) Cholesterol/HDL Ratio 2.7 Test 12/06/19 11:20 12/06/19 16:23 12/06/19 21:29 12/07/19 07:18 Glucose (Fingerstick) 155 mg/dL (70-99) 111 mg/dL (70-99) 161 mg/dL (70-99) 181 mg/dL (70-99) Test 12/07/19 11:09 Glucose (Fingerstick) 163 mg/dL (70-99) Laboratory Tests Test 12/06/19 16:23 12/06/19 21:29 12/07/19 07:18 12/07/19 11:09 Glucose (Fingerstick) 111 mg/dL (70-99) 161 mg/dL (70-99) 181 mg/dL (70-99) 163 mg/dL (70-99) Medications Active Scripts Medications Dose Route/Sig Max Daily Dose Days Date Category Dose Instructions Ventolin Hfa Inhaler (Albuterol Sulfate) 18 Gm Hfa.aer.ad 2 Puff INH QID 12/05/19 Reported Fenofibrate 54 Mg Tablet 1 Tab PO DAILY 12/05/19 Reported Advair 250-50 Diskus (Fluticasone/Salmeterol) 1 Each Disk.w.dev 1 Puff IH BID 12/05/19 Reported Glimepiride 1 Mg Tablet 1 Tab PO DAILY 12/05/19 Reported Atorvastatin Calcium 40 Mg Tablet 1 Tab PO QHS 12/05/19 Reported Percocet 5-325 Mg Tablet (Oxycodone/Acetaminophen) 1 Each Tablet 1 Tab PO PRN Q4HRS PRN 11/08/19 Rx [hormone bj] 08/03/16 Reported Triamcinolone Acetonide 0.025% Cream (Triamcinolone Acetonide) 15 Gm Cream..g. 1 Sherie TP DAILY PRN 01/10/15 Reported Furosemide 40 Mg Tablet 40 Mg PO DAILY 01/10/15 Reported Metformin Hcl 500 Mg Tablet 1 Tab PO DAILYWBKFT 01/10/15 Reported Do not take for 48hours after procedure. Next dose evening dose 08/05/16 Coreg (Carvedilol) 3.125 Mg Tablet 3.125 Mg PO BID 01/17/14 Reported Triamterene-Hctz 37.5-25 Mg Tb (Triamterene/Hydrochlorothiazid) 1 Each Tablet 1 Tab PO DAILY 01/17/14 Reported Comments CTA chest Impression: 1. Extensive right-sided pulmonary emboli with small left-sided pulmonary emboli. 2. Mildly dilated right ventricle, may indicate right heart strain. 3. Small right upper lobe peripheral groundglass opacity, may represent developing infarct. 4. Small pulmonary nodules. Recommend one-year follow-up if high risk. Impression . 1. Acute hypoxic respiratory failure secondary to acute pulmonary embolism with evidence of right ventricular strain. Risk factors being recent spinal/lumbar surgery, underlying obesity and possible hypercoagulable state. Her uncles had history of pulmonary embolism. 2. Abnormal CT chest with extensive pulmonary embolism as discussed above, mostly on the right side, but minimally on the left side as well. There were tiny 2-3 mm nodule, which may be noncalcified granulomas and will need to have a followup. She has no known malignancy. 3. Underlying obesity. 4. No significant tobacco history. 5. Rule out hypercoagulable state. Plan . continue supplemental oxygen 6 min walk prior to D/C venous Dopplers of lower extremities with Left DVT Gave pt. RX for hypercoagulable panel as an outpatient. Continue Eliquis, with need life long A/C Pt. also set up with outpatient follow up in our office in FEB, with Repeat CT and BLE doppler prior to visit Echocardiogram reviewed: with normal RV function and grade 2 DD D/W Dr. Fierro and Patient, Daughter at bedside and CHARU COX MD Dec 07, 2019 11:54
[2019-12-07] MEDS ORDERED: APIX5TAB PO (13:26)
--- NOTE | 2019-12-07 13:28 | DISCH ---
DISCHARGE INSTRUCTIONS Condition on Discharge Condition on Discharge: Stable Activity After Discharge Activity Instructions for Disc: Activity as tolerated, Walk in house Bathing Instructions: Shower-keep dressing dry, No Tub Bath until see Lifting Instructions after Dis: No heavy lifting, No pulling or pushing, Do not lift >10 pounds Exercise Instruction after Dis: Exercise per therapy Driving Instructions after Dis: No driving for 2 weeks Weight Bearing Status after Di: No restrictions, Full weight bearing, As tolerated Diet after Discharge Diet after Discharge: Diabetic No Calorie Level Additional Diet Restrictions: resume home diet Diet Texture: Regular Liquid Texture: Thin Liquid Swallowing Supervision: None needed Wound Incision Care Wound/Incision Care: Ice to area for comfort, Keep wound/cast CDI, Change dressing Wound Care Equipment: Dressings Contacting the DRManohar after DC Call your doctor for: Concerns you may have Treatment/Equipment after DC Adaptive Equipment Issued: JARON Díaz III DO Dec 07, 2019 13:28
--- NOTE | 2019-12-07 16:40 | NUR ---
Discharge Note: [facility] Discharge instructions and discharge home medications reviewed with Patient and a copy given. All questions have been answered and understanding verbalized. The following instructions and handouts were given: eliquis, pulmonary embolism, new medications, symptoms worsening Discontinued lines and drains: peripheral IV discontinued. Patient discharged to home via wheelchair with oxygen, accompanied by family.
--- NOTE | 2019-12-09 13:28 | DS ---
DATE OF DISCHARGE: 12/07/2019 ADMISSION DIAGNOSIS: Pulmonary embolism. DISCHARGE DIAGNOSIS: Resolving pulmonary embolism. HOSPITAL COURSE: The patient is a pleasant 64-year-old female who presented with pulmonary embolism. She was admitted. We gave her IV heparin. Consulted Pulmonary. Changed over to p.o. Eliquis and over the next few days, she returned to her baseline. She will discharge home. DISPOSITION: Home. ACTIVITY: As tolerated. DIET: Low sodium. MEDICATIONS: Please see the MRAD. I did give her a prescription for Eliquis. TOTAL TIME: 34 minutes. JARON VILLASEÑOR DO DR: JOSE R/alma JOB#: [id number] / [id number]
[2019-12-11 07:11] LABS: ANTITHROMBIN III SEE SEPARATE REPORT; LUPUS ANTICOAGULANT SEE SEPARATE REPORT; PROTEIN C ACTIVITY SEE SEPARATE REPORT; PROTEIN S ACTIVITY SEE SEPARATE REPORT
[2019-12-13] MEDS ORDERED: APIXABAN 5 MG TABLET. PO SCH (09:00)
== END 2019-12-07 15:25 | disposition home or self-care (01) | DRG 175 ==
LOC: ER 17:38 → 2 SOUTH 21:22
PROVIDERS: ADMIT Internal Medicine; ATTEND Internal Medicine
DX: I26.99 Other pulmonary embolism without acute cor pulmonale (principal); J96.01 Acute respiratory failure with hypoxia; I21.A1 Myocardial infarction type 2; Z68.41 Body mass index [BMI] 40.0-44.9, adult; I42.8 Other cardiomyopathies; I24.8 Other forms of acute ischemic heart disease; I82.432 Acute embolism and thrombosis of left popliteal vein; I82.412 Acute embolism and thrombosis of left femoral vein; D68.59 Other primary thrombophilia; E78.00 Pure hypercholesterolemia, unspecified; I25.10 Atherosclerotic heart disease of native coronary artery without angina pectoris; I50.9 Heart failure, unspecified; E10.51 Type 1 diabetes mellitus with diabetic peripheral angiopathy without gangrene; I11.0 Hypertensive heart disease with heart failure; I87.2 Venous insufficiency (chronic) (peripheral); G47.33 Obstructive sleep apnea (adult) (pediatric); E78.5 Hyperlipidemia, unspecified; E66.9 Obesity, unspecified; Z96.651 Presence of right artificial knee joint; Z87.891 Personal history of nicotine dependence; Z90.710 Acquired absence of both cervix and uterus; Z90.49 Acquired absence of other specified parts of digestive tract; Z91.010 Allergy to peanuts; Z88.0 Allergy status to penicillin; Z91.013 Allergy to seafood; Z91.018 Allergy to other foods; Z91.048 Other nonmedicinal substance allergy status; Z86.718 Personal history of other venous thrombosis and embolism; Z83.3 Family history of diabetes mellitus; Z82.49 Family history of ischemic heart disease and other diseases of the circulatory system; Z98.1 Arthrodesis status; Z79.899 Other long term (current) drug therapy
CPT/HCPCS: 36415; 71045; 71275; 80048; 80053; 80061; 82962; 83880; 84484; 85025; 85027; 85300; 85302; 85306; 85379; 85520; 85610; 85730; 86146; 86147; 93005; 93308; 93320; 93325; 93970; 94618; 94640; 96374; 99285; J1644; J1815; J2930; Q9967; G0378

== ENCOUNTER 2019-12-09 12:43 | Emergency (ER) | payer MEDICARE, OTHER ==
[~2019-12-09] VITALS: Ht 162.6 cm; Wt 97.0 kg
[~2019-12-09 12:43] MED LIST changes: +APIX5TAB PO; +ATOR40TA59 PO; +FENO54TA PO; +FLUT1DIS3 IH; +GLIM1TAB7 PO; +OXYC1TAB20 PO; +VENTOLIN HFA18 GM INH
--- NOTE | 2019-12-09 13:28 | PHYS DOC ---
Past Medical History Past Medical History: Asthma, Diabetes-Type II, High Cholesterol, Hypertension Past Surgical History: Cholecystectomy, Hysterectomy, Other Additional Past Surgical Histo: BREAST REDUCTION, RIGHT KNEE ARTHROSCOPY Smoking Status: Former Smoker Alcohol Use: None Drug Use: None General Adult EDM: Chief Complaint: CHEST PAIN HPI: HPI: The history was obtained from the patient. Patient is a 64-year-old female with PMH recent pulmonary embolism who presents with a chief complaint of chest pain. Patient states 10 years ago she was diagnosed with what sounds to be unprovoked left lower extremity blood clot. She states she took Coumadin for a time and the blood clot resolved. She states she was not taking any anticoagulation since then. She notes 1 week ago she was diagnosed with left lower extremity DVT and pulmonary embolism. States she did have back surgery approximate 1 month ago and is been relatively immobile. She states that she was started on heparin and discharged home on Eliquis 3 days ago. She states she has not missed any of her home Eliquis dosing. She states the chest pain began shortly after discharge from the hospital. She states at first it was intermittent but has become more constant and more severe. She states the chest pain seems positional but she cannot describe which position makes it worse. She notes breathing and makes the pain worse. She denies any increase in shortness of breath. Denies syncope. Denies fevers. Denies cough or hemoptysis. No other complaints. Review of Systems: Review of Systems: Constitutional: Denies fever or chills. [] Eyes: Denies change in visual acuity. [] HENT: Denies nasal congestion or sore throat. [] Respiratory: Denies cough or shortness of breath. [] Cardiovascular: Positive for chest pain GI: Denies abdominal pain, nausea, vomiting, bloody stools or diarrhea. [] : Denies dysuria. [] Musculoskeletal: Denies back pain or joint pain. [] Integument: Denies rash. [] Neurologic: Denies headache, focal weakness or sensory changes. [] Endocrine: Denies polyuria or polydipsia. [] Lymphatic: Denies swollen glands. [] Psychiatric: Denies depression or anxiety. [] Heart Score: Risk Factors: Risk Factors: DM, Current or recent (<one month) smoker, HTN, HLP, family history of CAD, obesity. Risk Scores: Score 0 - 3: 2.5% MACE over next 6 weeks - Discharge Home Score 4 - 6: 20.3% MACE over next 6 weeks - Admit for Clinical Observation Score 7 - 10: 72.7% MACE over next 6 weeks - Early Invasive Strategies Allergies: Allergies: Allergies Coded Allergies Type Severity Reaction Last Updated Verified Walker And Derivatives Allergy Severe Anaphylaxis 10/21/15 Yes Penicillins Allergy Severe anaphalaxis 10/21/15 Yes peanut Allergy Severe Anaphylaxis 10/21/15 Yes perfume Allergy Severe Anaphylaxis 10/21/15 Yes shellfish derived Allergy Severe Anaphylaxis 10/21/15 Yes methocarbamol Allergy Intermediate 12/05/19 Yes strawberry Adverse Reaction Intermediate Rash 10/21/15 Yes Physical Exam: PE: Constitutional: Well developed, well nourished, no acute distress, non-toxic appearance. [] HENT: Normocephalic, atraumatic, bilateral external ears normal, oropharynx moist, no oral exudates, nose normal. [] Eyes: PERRLA, EOMI, conjunctiva normal, no discharge. [] Neck: Normal range of motion, no tenderness, supple, no stridor. [] Cardiovascular:Heart rate regular rhythm, no murmur [] Lungs & Thorax: Bilateral breath sounds clear to auscultation [] Abdomen: Bowel sounds normal, soft, no tenderness, no masses, no pulsatile masses. [] Skin: Warm, dry, no erythema, no rash. [] Back: No tenderness, no CVA tenderness. [] Extremities: No tenderness, no cyanosis, no clubbing, ROM intact, no edema. [] Neurologic: Alert and oriented X 3, normal motor function, normal sensory function, no focal deficits noted. [] Psychologic: Affect normal, judgement normal, mood normal. [] Current Patient Data: Labs: Laboratory Tests Test 12/09/19 13:00 White Blood Count 10.8 x10^3/uL Red Blood Count 4.15 x10^6/uL Hemoglobin 13.6 g/dL Hematocrit 39.5 % Mean Corpuscular Volume 95 fL Mean Corpuscular Hemoglobin 33 pg Mean Corpuscular Hemoglobin Concent 34 g/dL Red Cell Distribution Width 13.1 % Platelet Count 302 x10^3/uL Neutrophils (%) (Auto) 67 % Lymphocytes (%) (Auto) 20 % Monocytes (%) (Auto) 11 % Eosinophils (%) (Auto) 2 % Basophils (%) (Auto) 0 % Neutrophils # (Auto) 7.3 x10^3/uL Lymphocytes # (Auto) 2.2 x10^3/uL Monocytes # (Auto) 1.2 x10^3/uL Eosinophils # (Auto) 0.2 x10^3/uL Basophils # (Auto) 0.0 x10^3/uL Prothrombin Time 20.6 SEC Prothromb Time International Ratio 1.8 Sodium Level 134 mmol/L Potassium Level 3.4 mmol/L Chloride Level 98 mmol/L Carbon Dioxide Level 28 mmol/L Anion Gap 8 Blood Urea Nitrogen 23 mg/dL Creatinine 0.8 mg/dL Estimated GFR (Cockcroft-Gault) 87.7 Glucose Level 155 mg/dL Calcium Level 9.8 mg/dL Troponin I Quantitative < 0.017 ng/mL [id number]-Scb-[id number]-Type Natriuretic Peptide 1620 pg/mL Current Medications Medications (Trade) Dose Ordered Sig/Nina Route PRN Reason Start Time Stop Time Status Last Admin Dose Admin Hydromorphone HCl (Dilaudid) 0.5 mg 1X ONCE IV 12/09/19 14:15 12/09/19 14:16 DC 12/09/19 14:19 Iohexol (Omnipaque 350 Mg/ml) 100 ml 1X ONCE IV 12/09/19 14:45 12/09/19 14:46 DC 12/09/19 15:02 Vital Signs: Vital Signs Date Time Temp Pulse Resp B/P (MAP) Pulse Ox O2 Delivery O2 Flow Rate FiO2 12/09/19 12:54 98.4 102 20 116/74 (88) 96 Room Air 98.4 EKG: EKG: EKG consistent with sinus tachycardia. Ventricular rate of 100 bpm. [place] normal. Q waves noted in the inferior leads. T wave flattening noted in anterior precordial leads. No ST segment elevation appreciated. Overall sim ilar to EKG obtained on December 04, 2019. Radiology/Procedures: Radiology/Procedures: [facility] [address] [place] [address] IMAGING REPORT Signed PATIENT: ANNA POST ACCOUNT: [id number] : 1955 LOCATION: ER AGE: 64 SEX: F EXAM STATUS: REG ER ORD. PHYSICIAN: JOVAN العراقي DO REASON: CP. h/o recent PE PROCEDURE: CT ANGIOGRAPHY CHEST EXAM: CT Pulmonary Angiogram INDICATION: Reason: CP. h/o recent PE / Spl. Instructions: / History: TECHNIQUE: Multi-detector row images were acquired from the thoracic inlet through the upper abdomen with the use of IV contrast. Sagittal and coronal images were acquired from the transaxial data. MIP images of the pulmonary arteries were obtained. All CT scans performed at this facility utilize dose optimization techniques as appropriate to the exam, including the following: Automated exposure control and adjustment of the mA and/or KV according to patient size (this includes techniques or standardized protocols for targeted exams where dose is indication/reason for exam). IV CONTRAST: Administered COMPARISON: CT pulmonary angiogram 12/04/2019 FINDINGS: PULMONARY ARTERIES: Large filling defect in the distal right main pulmonary artery with near occlusion of the right upper lobe segmental artery is again evident, consistent with acute pulmonary embolus. In the interval, the clot burden has decreased slightly. Minimal residual pulmonary emboli in the left pulmonary arterial branches are unchanged as well. CARDIOVASCULAR: Unremarkable Aorta is normal caliber. MEDIASTINUM & KEIKO: No adenopathy or masses. LUNGS: Reticular groundglass opacity is newly apparent at the right lung apex, most likely reflecting an evolving pulmonary infarct. Stable minimal atelectatic changes in the posterior basal segment right lower lobe. Lungs otherwise are clear. PLEURAL SPACE: No pleural effusions or pneumothorax. OSSEOUS & SOFT TISSUE: Unremarkable ABDOMEN: The visualized portions of the upper abdomen are unremarkable. IMPRESSION: Slight interval decrease in clot burden of patient's known pulmonary emboli with evolving infarct in the right lung apex. Otherwise no acute superimposed process. FOR INTERNAL CODING PURPOSES Critical result: Findings discussed with JOVAN العراقي at 12/09/2019 2:50 PM. RESULT CODE: (C) Electronically signed by: Tashi Pearl MD (12/09/2019 2:50 PM) [facility] [place] and SIGNED BY: TASHI PEARL MD DATE: 12/09/19 3650 [] Course & Med Decision Making: Course & Med Decision Making Pertinent Labs and Imaging studies reviewed. (See chart for details) [] Patient is a 64-year-old female who presents with a chief complaint of chest pain. On chart review patient was recently diagnosed with bilateral pulmonary emboli. She was discharged home recently on Eliquis. Initial EKG today without acute ischemic changes. Vital signs unremarkable. Basic labs were obtained. She does have slight elevation of her proBNP at 1600. This is improved from previous. Troponin undetectable. CT imaging reveals improvement of her clot burden with minimal increase of right apex infarct size. On repeat examination her symptoms been well controlled. I did discuss the imaging findings and case with Dr. Correa our physiognomist. He did feel it is reasonable to discharge patient home. I agree with his assessment I feel the patient is appropriate for discharge home with close outpatient monitoring. Patient and granddaughter at bedside both feel comfortable with this plan of care. Repeat vital signs remained stable. Normal oxygenation on room air. She was encouraged to use supportive care measures at home for her symptoms. Was instructed to follow-up with her primary care physician in the next 2 to 3 days. Return precautions discussed and understood. She is stable for discharge home. Dragon Disclaimer: Neighbor[employer] Disclaimer: This electronic medical record was generated, in whole or in part, using a voice recognition dictation system. Departure Departure Impression: Primary Impression: Pulmonary emboli Qualified Codes: I26.99 - Other pulmonary embolism without acute cor pulmonale Additional Impression: Chest pain Qualified Codes: R07.9 - Chest pain, unspecified Disposition: 01 HOME, SELF-CARE Condition: STABLE Referrals: SCAR MONTERO MD (PCP) CHARU CORREA MD Patient Instructions: Pulmonary Embolus Additional Instructions: Please follow-up with your primary care physician in the next 2 to 3 days. Justicifation of Admission Dx: Justifications for Admission: Justification of Admission Dx: N/A Acute COPD Exacerbation: Acute COPD Exacerbation [place]: Acute NSTEMI LINWOODKaileeJOVAN Oropeza DO Dec 09, 2019 13:28
[2019-12-09 13:42] LABS: BASO % 0 % (0-3); EOS # 0.2 x10^3/uL (0.0-0.7); EOS % 2 % (0-3); HEMATOCRIT 39.5 % (36.0-47.0); HEMOGLOBIN 13.6 g/dL (12.0-15.5); LYMPH # 2.2 x10^3/uL (1.0-4.8); LYMPH % 20 % (24-48); MEAN CORPUSCULAR HEMOGLOBIN 33 pg (25-35); MEAN CORPUSCULAR HGB CONC 34 g/dL (31-37); MEAN CORPUSCULAR VOLUME 95 fL (79-100); MONO # 1.2 x10^3/uL (0.0-1.1); MONO % 11 % (0-9); NEUT # 7.3 x10^3/uL (1.8-7.7); NEUT % 67 % (31-73); PLATELET COUNT 302 x10^3/uL (140-400); RED BLOOD COUNT 4.15 x10^6/uL (3.50-5.40); RED CELL DISTRIBUTION WIDTH 13.1 % (11.5-14.5); WHITE BLOOD COUNT 10.8 x10^3/uL (4.0-11.0)
[2019-12-09 13:59] LABS: CALCIUM 9.8 mg/dL (8.5-10.1); CREATININE 0.8 mg/dL (0.6-1.0); GFR 87.7; POTASSIUM 3.4 mmol/L (3.5-5.1)
[2019-12-09 14:01] LABS: PROTHROMBIN TIME PATIENT 20.6 SEC (11.7-14.0)
[2019-12-09] MEDS ORDERED: HYDROmorphone 2 MG/ML VIAL IV ONE (14:15)
[2019-12-09] MEDS ORDERED: IOHEXOL 350 MG/ML 100 ML VIAL. IV ONE (14:45)
--- NOTE | 2019-12-09 14:53 | RAD ---
EXAM: CT Pulmonary Angiogram INDICATION: Reason: CP. h/o recent PE / Spl. Instructions: / History: TECHNIQUE: Multi-detector row images were acquired from the thoracic inlet through the upper abdomen with the use of IV contrast. Sagittal and coronal images were acquired from the transaxial data. MIP images of the pulmonary arteries were obtained. All CT scans performed at this facility utilize dose optimization techniques as appropriate to the exam, including the following: Automated exposure control and adjustment of the mA and/or KV according to patient size (this includes techniques or standardized protocols for targeted exams where dose is indication/reason for exam). IV CONTRAST: Administered COMPARISON: CT pulmonary angiogram 12/04/2019 FINDINGS: PULMONARY ARTERIES: Large filling defect in the distal right main pulmonary artery with near occlusion of the right upper lobe segmental artery is again evident, consistent with acute pulmonary embolus. In the interval, the clot burden has decreased slightly. Minimal residual pulmonary emboli in the left pulmonary arterial branches are unchanged as well. CARDIOVASCULAR: Unremarkable Aorta is normal caliber. MEDIASTINUM & KEIKO: No adenopathy or masses. LUNGS: Reticular groundglass opacity is newly apparent at the right lung apex, most likely reflecting an evolving pulmonary infarct. Stable minimal atelectatic changes in the posterior basal segment right lower lobe. Lungs otherwise are clear. PLEURAL SPACE: No pleural effusions or pneumothorax. OSSEOUS & SOFT TISSUE: Unremarkable ABDOMEN: The visualized portions of the upper abdomen are unremarkable. IMPRESSION: Slight interval decrease in clot burden of patient's known pulmonary emboli with evolving infarct in the right lung apex. Otherwise no acute superimposed process. FOR INTERNAL CODING PURPOSES Critical result: Findings discussed with JOVAN العراقي at 12/09/2019 2:50 PM. RESULT CODE: (C) Electronically signed by: Sandeep Pearl MD (12/09/2019 2:50 PM) [facility] [place]
[2019-12-09 15:38] VITALS: BP 132/62
--- NOTE | 2019-12-10 08:22 | EKG ---
[facility] [address] [place] [address] Test Date: 2019-12-09 Test Time: 12:58:03 Pat Name: ANNA POST Department: Room: Gender: F Clinical Exercise Physiologist: : 1955 Requested By: JOVAN العراقي Order Number: [id number] Reading MD: Measurements Intervals [place] Rate: 100 P: 48 NV: 138 QRS: 16 QRSD: 96 T: 77 QT: 374 QTc: 486 Interpretive Statements SINUS RHYTHM LEFT ATRIAL ABNORMALITY QRS(T) CONTOUR ABNORMALITY CONSISTENT WITH INFERIOR INFARCT PROBABLY OLD ST & T ABNORMALITY, CONSIDER HIGH LATERAL ISCHEMIA OR LEFT VENTRICULAR STRAIN ABNORMAL ECG RI6.02 No previous ECG available for comparison
== END 2019-12-09 16:14 | disposition home or self-care (01) ==
LOC: ER 12:43
DX: I26.99 Other pulmonary embolism without acute cor pulmonale (principal); R07.89 Other chest pain; J45.909 Unspecified asthma, uncomplicated; E11.9 Type 2 diabetes mellitus without complications; E78.00 Pure hypercholesterolemia, unspecified; I10 Essential (primary) hypertension; Z90.710 Acquired absence of both cervix and uterus; Z90.49 Acquired absence of other specified parts of digestive tract; Z98.890 Other specified postprocedural states; Z87.891 Personal history of nicotine dependence; Z88.0 Allergy status to penicillin; Z91.013 Allergy to seafood; Z91.018 Allergy to other foods; Z88.8 Allergy status to other drugs, medicaments and biological substances
CPT/HCPCS: 36415; 71275; 80048; 83880; 84484; 85025; 85610; 93005; 96374; 99285; J1170; Q9967

== ENCOUNTER → 2019-12-14 | Outpatient (CLI) | payer MEDICARE, OTHER ==
[2019-12-09 15:38] VITALS: BP 132/62
== END | disposition home or self-care (01) ==
LOC: LAB 09:52
PROVIDERS: ATTEND Internal Medicine Critical Care Medicine
DX: I26.99 Other pulmonary embolism without acute cor pulmonale (principal); I82.409 Acute embolism and thrombosis of unspecified deep veins of unspecified lower extremity; I25.10 Atherosclerotic heart disease of native coronary artery without angina pectoris; Z79.899 Other long term (current) drug therapy
CPT/HCPCS: 36415; 81241; 86147

== ENCOUNTER → 2020-01-15 | Outpatient (CLI) | payer MEDICARE, OTHER ==
--- NOTE | 2020-01-15 13:49 | KCIC ---
EXAM: Lumbar spine, 2 views. HISTORY: Pain. COMPARISON: None. FINDINGS: 2 views of the lumbar spine are obtained. There is instrumented posterior spinal fusion and laminectomy decompression at L2-L3. There is severe degenerative endplate remodeling with disc space narrowing at this level. There is grade 1 anterolisthesis this level. There is also endplate remodeling comment disc space narrowing and facet arthropathy at L3-L4, L4-L5 and L5-S1. There is slight retrolisthesis of L3 on L4. There are incidental cholecystectomy clips. IMPRESSION: 1. Instrumented fusion and laminectomy decompression at L2-L3. 2. Multilevel degenerative change, primarily at L2-L3. Electronically signed by: Brigitte Slaughter MD (01/15/2020 1:46 PM) [id number]
== END ==
LOC: KCIC 11:31
PROVIDERS: ATTEND Neurological Surgery
DX: M47.817 Spondylosis without myelopathy or radiculopathy, lumbosacral region (principal); M48.061 Spinal stenosis, lumbar region without neurogenic claudication; M43.16 Spondylolisthesis, lumbar region
CPT/HCPCS: 72100

== ENCOUNTER → 2020-02-18 | Outpatient (CLI) | payer MEDICARE, OTHER ==
[~2020-02-18] MED LIST changes: +CONTRAST GIVEN. MC PRN; +IOHEXOL 350 MG/ML 100 ML VIAL. IV ONE
[2020-02-18 08:19] LABS: CREATININE 0.6 mg/dL (0.6-1.0); GFR 122.2
--- NOTE | 2020-02-18 09:35 | RAD ---
Examination: Bilateral Lower Extremity Venous Doppler Ultrasound History: DVT follow-up Comparison: 12/09/2019 Procedure: Love scale, color flow 2D and spectal waveform analysis images are obtained with and without compression in the area of the common femoral vein, superficial femoral vein - femoral vein junction, main femoral vein (superficial femoral vein) and popliteal vein. Veins of the proximal calf are also imaged. Findings: There is linear echogenicity identified in the left popliteal vein and peroneal vein likely chronic DVT. The right common femoral vein, superficial femoral vein, popliteal vein demonstrate normal compression and augmentation of flow. The left common femoral vein, suppression femoral vein are patent. IMPRESSION: 1. Chronic appearing deep venous thrombosis in the left popliteal vein and the peroneal vein. 2. No evidence of DVT in the right lower extremity. Electronically signed by: Magdaleno Unger MD (02/18/2020 9:32 AM) [id number]
--- NOTE | 2020-02-18 09:49 | RAD ---
Examination: CT angiography chest with IV contrast History :follow-up pulmonary embolism COMPARISON: 12/09/2019 TECHNIQUE: Axial CT angiographic images of chest were performed with IV contrast. Coronal and sagittal 3-D MIP reformats are performed Exposure: One or more of the following individualized dose reduction techniques were utilized for this examination: 1. Automated exposure control 2. Adjustment of the mA and/or kV according to patient size 3. Use of iterative reconstruction technique FINDINGS: The central airways are patent. The heart size is within normal limits. Coronary artery calcifications identified. The caliber of the aorta grossly appears unremarkable. There is filling defect identified in the right upper lobe pulmonary arterial branches similar to prior exam. There is interval decrease in clot burden in the right main pulmonary artery and the right lower lobe pulmonary arteries and its branches. There is persistent patchy airspace opacities identified in the right lower lobe of the lung. Interval decreasing airspace opacity or infarct in the right apical lung. The visualized liver, spleen, adrenals grossly appears unremarkable. Mild degenerative changes thoracic spine. IMPRESSION: 1. Persistent filling defect in the right upper lobe pulmonary arterial branches likely known pulmonary embolus. There is interval decrease in clot burden in the right main pulmonary artery and the right lower lobe pulmonary arterial branches. 2. Patchy airspace opacities identified in the right lower lobe of the lung likely atelectasis or infiltrates or infarct again identified. There is interval decrease in right apical infarct or atelectasis or infiltrate. Electronically signed by: Magdaleno Unger MD (02/18/2020 9:46 AM) [id number]
== END ==
LOC: CT 08:56
PROVIDERS: ATTEND Internal Medicine Critical Care Medicine
DX: I82.532 Chronic embolism and thrombosis of left popliteal vein (principal); I82.552 Chronic embolism and thrombosis of left peroneal vein; M47.814 Spondylosis without myelopathy or radiculopathy, thoracic region
CPT/HCPCS: 36415; 71275; 82565; 84520; 93970; Q9967

== ENCOUNTER → 2020-04-16 | Outpatient (CLI) | payer MEDICARE, OTHER ==
[~2020-04-16] MED LIST changes: -CONTRAST GIVEN. MC PRN; +GADOTERATE 5 MMOL/10ML VIAL. IVP ONE; -IOHEXOL 350 MG/ML 100 ML VIAL. IV ONE; +METH-562 PO; -METH750T2 PO
--- NOTE | 2020-04-16 16:07 | RAD ---
EXAM: XR LUMBAR SPINE 2-3V 04/16/2020 10:58 AM CLINICAL INDICATION: Lumbar radiculopathy COMPARISON: Lumbar spine radiograph 01/15/2020 TECHNIQUE: 2 views of the lumbar spine FINDINGS: There 5 nonrib-bearing lumbar vertebral bodies. There is instrumented posterior fusion at L2-L3 without evidence of complication. Endplate sclerosis at L2-L3 is unchanged. No acute fracture o r listhesis. Moderate to severe disc space narrowing at L3-L4 through L5-S1 with anterior osteophyte is unchanged. Left sacroiliac joint sclerosis is unchanged. Cholecystectomy clips are present. IMPRESSION: 1. Unchanged, uncomplicated instrumented posterior fusion at L2-L3. 2. Unchanged advanced degenerative disc disease at L3-L4 through L5-S1. Electronically signed by: Mercedes Jimenez MD (04/16/2020 4:04 PM) [id number]
--- NOTE | 2020-04-16 16:10 | RAD ---
MRI LUMBAR SPINE WITHOUT AND WITH IV CONTRAST History: Reason: LUMBAR RADICULOPATHY 20mL CLARISCAN / Spl. Instructions: / History: Technique: Multiplanar, multi sequential MR imaging was performed of the lumbar spine without and wit h intravenous contrast. Comparison: MRI December 02, 2014. CT November 05, 2019. Findings: Postoperative changes L2-L3 posterior stabilization and decompression. Grade 1 anterolisthesis L2 on L3, unchanged. There is enhancement along the posterior epidural space at the L2-L3 level. Normal vertebral body height. No fracture. Congenitally small spinal canal. Conus terminates at the normal location. No evidence of nerve root clumping. No pathologic enhancemen t. L1-L2: Disc bulge with left foraminal disc protrusion. Minimal canal narrowing. No neuroforaminal na rrowing. L2-L3: No listhesis. Disc uncovering. Posterior decompression. No canal narrowing. Moderate bilatera l neuroforaminal narrowing. L3-L4: Broad-based disc bulge. Moderate facet arthropathy. Mild canal narrowing. Subarticular recess narrowing. Mild to moderate right and mild left neuroforaminal narrowing. L4-L5: Broad-based disc bulge. Moderate facet arthropathy. Mild canal narrowing. Subarticular recess narrowing. Moderate right and mild left neuroforaminal narrowing. L5-S1: Disc bulge. Moderate facet arthropathy. Mild canal narrowing. Subarticular recess narrowing. Compression of the descending right S1 nerve root within the subarticular recess. Moderate left and m ild right neuroforaminal narrowing. Impression: 1. Postoperative changes L2-L3 with unchanged grade 1 anterolisthesis. 2. Moderate multilevel lumbar spondylosis with congenitally small spinal canal and prominent epidura l fat contributing to mild multilevel canal and subarticular recess narrowing. 3. L5-S1 right subarticular recess narrowing with compression of the right descending S1 nerve root. Correlate for radiculopathy. 4. Multilevel neural foraminal narrowing, as described. Electronically signed by: Ken Daniel DO (04/16/2020 4:08 PM) [id number]
== END ==
LOC: MRI 11:33
PROVIDERS: ATTEND Neurological Surgery
DX: M51.17 Intervertebral disc disorders with radiculopathy, lumbosacral region (principal); M47.27 Other spondylosis with radiculopathy, lumbosacral region; M48.07 Spinal stenosis, lumbosacral region; M25.78 Osteophyte, vertebrae
CPT/HCPCS: 72100; 72158; A9575

== ENCOUNTER → 2020-04-29 | Outpatient (CLI) | payer MEDICARE, OTHER ==
[~2020-04-29] MED LIST changes: +CONTRAST GIVEN. MC PRN; -GADOTERATE 5 MMOL/10ML VIAL. IVP ONE; +IOHEXOL 350 MG/ML 100 ML VIAL. IV ONE
[2020-04-29 16:04] LABS: CREATININE 0.8 mg/dL (0.6-1.0); GFR 87.7
--- NOTE | 2020-04-29 16:27 | RAD ---
EXAM: Bilateral lower extremity venous Doppler sonogram. HISTORY: Pain and swelling. TECHNIQUE: Love scale and color Doppler sonographic evaluation of the bilateral lower extremity veins with spectral waveform analysis was performed. FINDINGS: There is normal color flow, normal compressibility and there are normal spectral waveforms in the common femoral, superficial femoral, popliteal, posterior tibial and greater saphenous veins. IMPRESSION: No Doppler evidence of lower extremity deep venous thrombosis. Electronically signed by: Brigitte Slaughter MD (04/29/2020 4:24 PM) [id number]
--- NOTE | 2020-04-29 20:34 | RAD ---
CT angiogram of the chest with contrast: Reason for examination: Follow-up for pulmonary embolus. Comparison is made to previous studies dated 02/18/2020 and 12/09/2019. Helical images were obtained through the chest with intravenous administration of 100 cc Omnipaque 35 0 using PE protocol. 3-D MIPS reconstruction was performed in sagittal and coronal planes. Exposure: One or more of the following individualized dose reduction techniques were utilized for thi s examination: 1. Automated exposure control 2. Adjustment of the mA and/or kV according to patient size 3. Use of iterative reconstruction technique. No abnormality seen at the thyroid gland. The trachea and mainstem bronchi show no intraluminal lesio ns. No abnormality seen at the esophagus. The thoracic aorta shows no aneurysmal dilatation or dissec tion. The heart size is normal with no pericardial effusion. There continues to be some residual pulm onary embolus present in the right lower lobe pulmonary artery. There continues to be pulmonary embol i in the right upper lobe pulmonary arterial branches. The lung saldana continue show some minimal haz y opacities in the right upper lobe anteriorly. There is also some atelectasis or infiltrate still pr esent posteriorly at the right costophrenic angle. No focal abnormalities are seen at the liver, spleen, adrenal glands or visualized portion of the sheppard creas. No acute bony abnormalities are seen. IMPRESSION: Continued presence of pulmonary emboli in the right upper lobe pulmonary arterial branches. Some resi dual pulmonary embolus present in the right lower lobe pulmonary artery. Minimal hazy opacity in the right upper lobe anteriorly. Persistent atelectasis or infiltrate posteriorly at the right costophrenic angle which is unchanged. Electronically signed by: Phyllis Qureshi MD (04/29/2020 8:31 PM) [facility]ER
== END ==
LOC: US 15:05
PROVIDERS: ATTEND Internal Medicine Critical Care Medicine
DX: I26.99 Other pulmonary embolism without acute cor pulmonale (principal); R91.8 Other nonspecific abnormal finding of lung field
CPT/HCPCS: 36415; 71275; 82565; 84520; 93970; Q9967

== ENCOUNTER → 2020-06-03 | Outpatient (CLI) | payer MEDICARE, OTHER ==
[~2020-06-03] MED LIST changes: -CONTRAST GIVEN. MC PRN; -IOHEXOL 350 MG/ML 100 ML VIAL. IV ONE
--- NOTE | 2020-06-04 12:00 | SLEEP ---
DATE OF STUDY: 06/04/2020 HOME SLEEP STUDY REFERRING PHYSICIAN: Scar Molina MD. The patient is a 64-year-old who weighs 200 pounds with a BMI of 34. The patient's [place] score was 0. The patient underwent home sleep study performed at [facility]. Total recording time was 286 minutes. During the night study, the patient had 3 obstructive apneas, 11 mixed apneas, no central apneas and 68 hypopneas. The patient's AHI was 20 per hour. Nocturnal oximetry study revealed an average oxygen saturation of 88% with the lowest of 80%. 233 minutes were spent with oxygen saturation of less than 90%. Mean heart rate 74 beats per minute. HR in 40's observed with hypopneas. IMPRESSION: 1. Moderate obstructive sleep apnea at an AHI of 20 per hour. 2. Nocturnal hypoxia secondary to obstructive sleep apnea. 3. Sinus bradycardia RECOMMENDATIONS: 1. The patient would benefit from treatment with CPAP. This can be done as in-lab CPAP titration study versus home auto-PAP. 2. Once the patient is optimally treated with CPAP, then follow up in 4-6 weeks to assess compliance and to document clinical improvement. f/u on bradycardia as well post CPAP. 3. Weight loss is advised. 4. Avoid [employer] depressants. 5. Cautioned regarding driving until symptoms of sleep apnea resolve with above recommendations. CHARU SCALES MD DR: CLARKE/alma JOB#: [id number] / [id number] SCAR Yusfu MD MTDD
== END ==
LOC: RT 09:52
PROVIDERS: ATTEND Internal Medicine Critical Care Medicine
DX: G47.30 Sleep apnea, unspecified (principal)
CPT/HCPCS: G0399

== ENCOUNTER → 2020-06-13 | Outpatient (CLI) | payer MEDICARE, OTHER ==
[~2020-06-13] MED LIST changes: +CONTRAST GIVEN. MC PRN; +IOHEXOL 350 MG/ML 100 ML VIAL. IV ONE
[2020-06-13 11:27] LABS: CREATININE 0.6 mg/dL (0.6-1.0); GFR 122.2
--- NOTE | 2020-06-13 12:31 | RAD ---
CT angiography of the chest 06/13/2020 11:30 AM Indication: Shortness of breath. History of pulmonary embolism. Technique: Multiple contiguous axial images were obtained through the chest after administration of i ntravenous iodinated contrast. Coronal, sagittal, and 3-D MIP reformations were created. Comparison: CT chest April 29, 2020 Findings: There is persistent occlusion of the truncus anterior supplying the right upper lobe.Decrea sed opacification corresponding venous drainage noted. This has evolved a more chronic appearance ove r time.. Vascular web appears to be present in the pulmonary artery supplying the posterior basilar r ight lower lobe. No evidence of new or acute PE is identified. Heart size is normal. No pericardial effusion is identified. No pathologically enlarged mediastinal a denopathy is identified. No pneumothorax or significant effusion is identified. Atelectasis or scarri ng is seen in the right lung base. There are scattered mild groundglass opacities in the right upper lobe. This could be part reflect he terogenous attenuation due to perfusion abnormalities though a mild infectious or inflammatory proces s could also produce this appearance. Limited visualization of the upper abdomen is unremarkable. No acute osseous changes are identified. IMPRESSION: 1. Evolving chronic pulmonary embolism including occlusion of the right truncus anterior supplying th e upper lobe. 2. Scattered mild groundglass opacities in the right upper lobe. This could be part reflect heteroge nous attenuation due to perfusion abnormalities though a mild infectious or inflammatory process coul d also produce this appearance. CT DOSING PQRS STATEMENT: One or more of the following individualized dose reduction techniques were utilized for this examinat ion: 1. Automated exposure control 2. Adjustment of the mA and/or kV according to patient size 3. Use of iterative reconstruction technique Electronically signed by: Marco Alvarado MD (06/13/2020 12:28 PM) [id number]
== END ==
LOC: CT 10:36
PROVIDERS: ATTEND Internal Medicine Critical Care Medicine
DX: I26.99 Other pulmonary embolism without acute cor pulmonale (principal)
CPT/HCPCS: 36415; 71275; 82565; 84520; Q9967

== ENCOUNTER → 2020-06-17 | Outpatient (CLI) | payer MEDICARE, OTHER ==
[~2020-06-17] MED LIST changes: -CONTRAST GIVEN. MC PRN; -IOHEXOL 350 MG/ML 100 ML VIAL. IV ONE; +ZOLPIDEM 5 MG TABLET. PO ONE
--- NOTE | 2020-06-19 11:42 | SLEEP ---
DATE OF STUDY: 06/17/2020 SLEEP STUDY ATTENDING PHYSICIAN: Scar Molina MD. The patient is a 64-year-old who weighs 219 pounds with a BMI of 37. The patient's [place] score was 7. The patient underwent CPAP titration study at [facility] on 06/17/2020. The patient had home sleep study, which showed moderate JESSICA at an AHI of 21 per hour. During the night study, the patient spent 411 minutes in bed and slept for 292 minutes with a sleep efficiency of 71%. Sleep latency was 71 minutes with a REM latency of 351 minutes. Sleep architecture showed normal stage 1 sleep, slightly increased stage 2 sleep, increased slow wave and reduced REM sleep, which was only 1% of total sleep time. EKG monitoring revealed normal sinus rhythm, average heart rate was 82 beats per minute, occasional PVCs seen. PLMS were seen at index of 17 per hour and 2 per hour caused EEG arousals. The patient was started on CPAP at 5 cm water and titrated up to 11 cm water. At the final pressure, the patient slept for 125 minutes. The patient had lateral REM sleep. The patient's AHI was reduced to 4 per hour and oxygen saturation remained above 88% with one spot desaturation of 86%. The patient used medium size nasal pillows. IMPRESSION: 1. Moderate obstructive sleep apnea diagnosed by home sleep study. 2. Xyme-dg-ielqdcxo periodic limb movements. This does not need to be treated unless the patient has symptoms of restless legs during the day. RECOMMENDATIONS: 1. CPAP at 11 cm water completely eliminated the patient's sleep apnea and should be used on a nightly basis. 2. Follow up in 4-6 weeks to assess compliance with CPAP and to document clinical improvement. 3. Weight loss is advised. 4. Avoid [employer] depressants. 5. Cautioned regarding driving until symptoms of sleep apnea resolve with the use of CPAP. CHARU SCALES MD DR: CLARKE/alma JOB#: [id number] / [id number] SCAR Yusuf MD
== END ==
LOC: RT 18:57
PROVIDERS: ATTEND Internal Medicine Critical Care Medicine
DX: G47.33 Obstructive sleep apnea (adult) (pediatric) (principal)
CPT/HCPCS: 95811

== ENCOUNTER → 2020-09-29 | Outpatient (CLI) | payer MEDICARE, OTHER ==
[~2020-09-29] MED LIST changes: +CONTRAST GIVEN. MC PRN; +IOHEXOL 350 MG/ML 100 ML VIAL. IV ONE; -ZOLPIDEM 5 MG TABLET. PO ONE
[2020-09-29 14:22] LABS: CREATININE 0.6 mg/dL (0.6-1.0); GFR 122.2
--- NOTE | 2020-09-29 15:50 | RAD ---
EXAMINATION: CTA Chest With IV contrast INDICATION:64 years, Female, chest pain, evaluate for pulmonary embolism. COMPARISON: 06/13/2020. TECHNIQUE: Spiral CTA was obtained from the jugular notch through the posterior costophrenic recess. 3-D MIPS, sagittal and coronal reformats were obtained. Exposure: One or more of the following individualized dose reduction techniques were utilized for thi s examination: 1. Automated exposure control 2. Adjustment of the mA and/or kV according to patient size 3. Use of iterative reconstruction technique. FINDINGS: LUNGS/PLEURA: Similar scattered mild groundglass opacities in the right upper lobe, may relate to chr onic perfusion abnormalities. Linear scarring in the right lung base. Central airways are patent. No focal consolidation, pleural effusion or pneumothorax. No suspicious pulmonary nodule. MEDIASTINUM: No pathologic mediastinal or hilar adenopathy. The thoracic aorta and pulmonary arteries are normal in caliber. Similar chronically occluded right upper lobar pulmonary artery. Linear filli ng defects within the segmental right lower lobe pulmonary arteries, unchanged since prior exam. No f illing defect to suggest acute embolism. The heart is normal in size. No pericardial effusion. No det ectable calcified coronary atherosclerosis. The visualized thyroid and the esophagus are unremarkable . AXILLA/SOFT TISSUE: No supraclavicular or axillary adenopathy. Regional soft tissues are within brian l limits. UPPER ABDOMEN: The visualized upper abdomen appears unremarkable. BONES: No evidence of acute fractures or aggressive osseous lesions. IMPRESSION: 1. No evidence of acute pulmonary embolism. 2. Similar chronically occluded right upper lobar pulmonary artery. 3. Unchanged chronic evolving pulmonary emboli in the segmental branches of the right lower lobe. 4. Other chronic/incidental findings, as described above. Electronically signed by: Celia Brooks MD (09/29/2020 3:47 PM) [facility]
== END ==
LOC: CT 16:04
PROVIDERS: ATTEND Internal Medicine Critical Care Medicine
DX: I26.99 Other pulmonary embolism without acute cor pulmonale (principal); J98.4 Other disorders of lung; R93.49 Abnormal radiologic findings on diagnostic imaging of other urinary organs
CPT/HCPCS: 36415; 71275; 82565; 84520; Q9967

== ENCOUNTER → 2021-02-04 | Outpatient (CLI) | payer MEDICARE, OTHER ==
[~2021-02-04] MED LIST changes: -CONTRAST GIVEN. MC PRN; +DOCU-148 PO; -DOCU-153 PO; -IOHEXOL 350 MG/ML 100 ML VIAL. IV ONE
--- NOTE | 2021-02-05 10:30 | CARD ---
MR#: [id number] Date of Study: 02/04/2021 Ordering Physician: ROBERTO SHAIKH, Referring Physician: ROBERTO SHAIKH, Tech: Kendal Wood [facility] APPROVED REPORT EXAM: Two-dimensional and M-mode echocardiogram with Doppler and color Doppler. Other Information Quality : AverageHR: 62bpm Technically limited study due to body habitus. INDICATION Cardiomyopathy RISK FACTORS Diabetes Asthma 2D DIMENSIONS RVDd3.7 (2.9-3.5cm)Left Atrium(2D)3.8 (1.6-4.0cm) IVSd1.1 (0.7-1.1cm)Aortic Root(2D)2.8 (2.0-3.7cm) LVDd5.1 (3.9-5.9cm)LVOT Diameter2.0 (1.8-2.4cm) PWd1.1 (0.7-1.1cm)LVDs3.6 (2.5-4.0cm) FS (%) 30.8 %SV73.3 ml LVEF(%)58.1 (>50%) Aortic Valve AoV Peak Emmanuel.150.6cm/sAoV VTI31.0cm AO Peak GR.9.1mmHgLVOT Peak Emmanuel.111.0cm/s LVOT VTI 23.49cmAO Mean GR.5mmHg LADONNA (VMAX)1.88dg9TJV (VTI)2.48cm2 Mitral Valve MV E Ztlrdhgw60.9cm/sMV DECEL IAPM996aw MV A Iafvhqio916.2cm/sMV E Mean Gr.3mmHg MV LNT99qtV/A Ratio0.8 MVA (PHT)4.01cm2 TDI E/Lateral E'9.7E/Medial E'19.0 Pulmonary Valve PV Peak Mwsuyubd39.1cm/sPV Peak Grad.3mmHg Tricuspid Valve TR P. Arwyftfj303ow/sRAP XFYORBXQ8ptRa TR Peak Gr.55nhWcUMYI87ypQr Pulmonary Vein S1 Etupyefg60.3cm/sD2 Ptuhhocw47.2cm/s PVa hdipyucd921pfmj LEFT VENTRICLE The left ventricle is normal size. There is borderline to mild concentric left ventricular hypertroph y. The systolic function is moderately impaired. EF 40% Septal motion suggestive of conduction defect . There is moderate global hypokinesis. Transmitral Doppler flow pattern is Grade I-abnormal relaxati on pattern. RIGHT VENTRICLE The right ventricle is normal size. There is normal right ventricular wall thickness. The right ventr icular systolic function is normal. ATRIA The left atrium size is normal. The right atrium size is normal. The interatrial septum is intact wit h no evidence for an atrial septal defect or patent foramen ovale as noted on 2-D or Doppler imaging. AORTIC VALVE The aortic valve is normal in structure and function. Doppler and Color Flow revealed no significant aortic regurgitation. There is no significant aortic valvular stenosis. Calculated aortic valve area is 2.57 cm2 with maximum pressure gradient of 10 mmHg and mean pressure gradient of 5 mmHg. MITRAL VALVE The mitral valve is calcified. There is no evidence of mitral valve prolapse. There is no mitral valv e stenosis. Doppler and Color-flow revealed trace mitral regurgitation. TRICUSPID VALVE The tricuspid valve is normal in structure and function. Doppler and Color Flow revealed trace tricus pid regurgitation with an estimated PAP of 33 mmHg. There is no tricuspid valve stenosis. PULMONIC VALVE The pulmonic valve is not well visualized. Doppler and Color Flow revealed trace pulmonic valvular re gurgitation. There is no pulmonic valvular stenosis. GREAT VESSELS The aortic root is normal in size. The IVC is normal in size and collapses >50% with inspiration. PERICARDIAL EFFUSION There is no evidence of significant pericardial effusion. Critical Notification Critical Value: No <Conclusion> The systolic function is moderately impaired. EF 40% Septal motion suggestive of conduction defect. There is moderate global hypokinesis. Technically difficult study. Signed by : Lambert Vasquez, Electronically Approved : 02/05/2021 10:30:05
== END ==
LOC: ECHO 12:40
PROVIDERS: ATTEND Internal Medicine Cardiovascular Disease
DX: I34.0 Nonrheumatic mitral (valve) insufficiency (principal); I51.7 Cardiomegaly; I42.9 Cardiomyopathy, unspecified
CPT/HCPCS: 93306

== ENCOUNTER 2021-03-17 16:10 | Inpatient (IN) | payer MEDICARE, OTHER ==
[~2021-03-17] VITALS: Ht 162.6 cm; Wt 99.4 kg
[~2021-03-17 16:10] MED LIST changes: -IOHEXOL 350 MG/ML 100 ML VIAL. IV ONE
--- NOTE | 2021-03-17 21:32 | PHYS DOC ---
Past Medical History Past Medical History: Asthma, Diabetes-Type II, DVT, High Cholesterol, Hy pertension, Other Additional Past Medical Histor: pe Past Surgical History: Cholecystectomy, Knee Replacement Additional Past Surgical Histo: breast reduction, back surgery x 2, Smoking Status: Former Smoker Alcohol Use: None Drug Use: None General Adult EDM: Chief Complaint: SHORTNESS OF BREATH HPI: HPI: Patient is a 65 year old female past medical history hypertension hyperlipidemia diabetes PE's presents with a chief complaint of shortness of breath. Patient states shortness of breath started Thanksgiving. Patient states her breathing has progressively become worse it is rest and worse with exertion. she denies any associated chest discomfort cough fever chills nausea v omiting or diarrhea. Patient has been vaccinated against COVID-19. CTA chest this afternoon-- Chronic PE with no acute. Review of Systems: Review of Systems: Review of systems: Constitutional symptoms- No fever, no chills. Eyes- No Discharge, No Visual Loss Respiratory symptoms- Positive shortness of breath, No wheezing, Positive Dyspnea on Exertion Cardiovascular Systems; No chest pain, No Palpitations, No syncope Gastrointestinal symptoms: NO abdominal pain, no nausea, no vomiting or diarrhea. Genitourinary symptoms: No dysuria. Musculoskeletal symptoms: No back pain No extremity pain.Positive positive edema NEUROLOGICAL Symptoms: No headache, no generalized weakness; No focal Weakness Skin: No rash. Heart Score: C/O Chest Pain: N/A Risk Factors: Risk Factors: DM, Current or recent (<one month) smoker, HTN, HLP, family history of CAD, obesity. Risk Scores: Score 0 - 3: 2.5% MACE over next 6 weeks - Discharge Home Score 4 - 6: 20.3% MACE over next 6 weeks - Admit for Clinical Observation Score 7 - 10: 72.7% MACE over next 6 weeks - Early Invasive Strategies Allergies: Allergies: Allergies Coded Allergies Type Severity Reaction Last Updated Verified [place] And Derivatives Allergy Severe Anaphylaxis 10/21/15 Yes Penicillins Allergy Severe anaphalaxis 10/21/15 Yes peanut Allergy Severe Anaphylaxis 10/21/15 Yes perfume Allergy Severe Anaphylaxis 10/21/15 Yes shellfish derived Allergy Severe Anaphylaxis 10/21/15 Yes methocarbamol Allergy Intermediate 12/05/19 Yes strawberry Adverse Reaction Intermediate Rash 10/21/15 Yes Physical Exam: PE: Constitutional: Well developed, well nourished, no acute distress, non-toxic appearance. [] HENT: Normocephalic, atraumatic, bilateral external ears normal, oropharynx moist, no oral exudates, nose normal. [] Eyes: PERRLA, EOMI, conjunctiva normal, no discharge. [] Neck: Normal range of motion, no tenderness, supple, no stridor. [] Cardiovascular:Heart rate regular rhythm, no murmur [] Lungs & Thorax: Bilateral breath sounds clear to auscultation [] Abdomen: Bowel sounds normal, soft, no tenderness, no masses, no pulsatile masses. [] Skin: Warm, dry, no erythema, no rash. [] Back: No tenderness, no CVA tenderness. [] Extremities: No tenderness, no cyanosis, no clubbing, ROM intact, swelling left lower extremity Neurologic: Alert and oriented X 3, normal motor function, normal sensory function, no focal deficits noted. [] Psychologic: Affect normal, judgement normal, mood normal. [] Current Patient Data: Vital Signs: Vital Signs Date Time Temp Pulse Resp B/P (MAP) Pulse Ox O2 Delivery O2 Flow Rate FiO2 03/17/21 20:50 98.1 100 20 184/111 (135) 95 Room Air 98.1 EKG: EKG: [] Performed at 2133 Rate 82 Normal sinus rhythm No ST elevation No ST depression No acute AL Radiology/Procedures: Radiology/Procedures: [] Course & Med Decision Making: Course & Med Decision Making Pertinent Labs and Imaging studies reviewed. (See chart for details) [] Treatment included Lasix. Patient chest x-ray no focal infiltrate. Patient's BNP greater than 1200. Patient's Covid test negative. Dragon Disclaimer: Dragon Disclaimer: This electronic medical record was generated, in whole or in part, using a voice recognition dictation system. Departure Departure Impression: Primary Impression: Dyspnea Additional Impression: Elevated brain natriuretic peptide (BNP) level Disposition: ADMITTED INPATIENT Condition: STABLE Referrals: SCAR MONTERO MD (PCP) GIO FERREIRA DO Mar 17, 2021 21:32
[2021-03-17 21:58] LABS: BASO % 0 % (0-3); EOS # 0.1 x10^3/uL (0.0-0.7); EOS % 1 % (0-3); HEMATOCRIT 41.2 % (36.0-47.0); HEMOGLOBIN 13.8 g/dL (12.0-15.5); LYMPH % 29 % (24-48); MEAN CORPUSCULAR HEMOGLOBIN 33 pg (25-35); MEAN CORPUSCULAR HGB CONC 33 g/dL (31-37); MEAN CORPUSCULAR VOLUME 99 fL (79-100); MONO # 0.7 x10^3/uL (0.0-1.1); MONO % 10 % (0-9); NEUT # 4.1 x10^3/uL (1.8-7.7); NEUT % 59 % (31-73); PLATELET COUNT 232 x10^3/uL (140-400); RED BLOOD COUNT 4.17 x10^6/uL (3.50-5.40); WHITE BLOOD COUNT 6.9 x10^3/uL (4.0-11.0)
[2021-03-17 22:06] LABS: CALCIUM 8.6 mg/dL (8.5-10.1); CREATININE 0.5 mg/dL (0.6-1.0); GFR 150.3; POTASSIUM 3.9 mmol/L (3.5-5.1)
[2021-03-17 22:11] LABS: ALBUMIN 3.5 g/dL (3.4-5.0); ALBUMIN/GLOBULIN RATIO 0.9 (1.0-1.7); TOTAL BILIRUBIN 0.7 mg/dL (0.2-1.0); TOTAL PROTEIN 7.3 g/dL (6.4-8.2)
--- NOTE | 2021-03-17 22:11 | RAD ---
Exam: Chest one view INDICATION: Shortness of breath TECHNIQUE: Frontal view of the chest Comparisons: None FINDINGS: The cardiomediastinal silhouette and pulmonary vessels are within normal limits. The lung and pleural spaces are clear. IMPRESSION: No acute cardiopulmonary process. Electronically signed by: Lacie Fox MD (03/17/2021 10:09 PM) [facility]
[2021-03-17] MEDS: FUROSEMIDE 40 MG/4 ML VIAL. IVP SCH (23:01)
[2021-03-17 23:51] LABS: INFLUENZA A PATIENT NEGATIVE (NEGATIVE); INFLUENZA B PATIENT NEGATIVE (NEGATIVE)
[2021-03-18 06:00] VITALS: BP 148/75
--- NOTE | 2021-03-18 06:00 | NUR ---
pt arrived at 0600 to room 650. ambulated to the bed. pt states she can walk now due to getting lasix in er. assessment passed on to basil rn. history completed. pt had covid rapid negative, waiting on covid pcr. monitor applied and helped into gown. pt states she is having her bring up her meds, she doesnt know what they are. passed on to melinda gracia rn to complete med reconsilation. stated to pt on visitation hours and not till results are obtained for her pcr. valuables documented. lcrn
--- NOTE | 2021-03-18 08:12 | PDOC1 ---
History and Physical Date of Service: DOS: DATE: 03/18/21 TIME: 08:09 Chief Complaint: Chief Complain: Shortness of breath History of Present Illness: HPI: 65-year-old female with significant past medical history of diabetes mellitus type 2, DVT/PE, dyslipidemia, hypertension, systolic CHF who comes in with shortness of breath since . She was trying to not come to the hospital or be evaluated and try to just get through the holidays. It progressively became worse and worse with exertion. Patient does endorse o rthopnea. Patient did get a dose of IV Lasix in the emergency department and her symptoms have improved. Patient does also complain of left lower extremity swelling and heaviness. Denies fevers, nausea vomiting, chest pain, abdominal pain, dysuria, hematuria or diarrhea or constipation. Past Medical/Surgical History: PMH/PSH: Past Medical History: Asthma, Diabetes-Type II, DVT after surgery, High Cholesterol, Hypertension, pulmonary embolism Past Surgical History: Cholecystectomy, Knee Replacement, right breast lumpectomy, lumbar laminectomy Allergies: Allergies: Coded Allergies: [place] And Derivatives (Verified Allergy, Severe, Anaphylaxis, 10/21/15) Penicillins (Verified Allergy, Severe, anaphalaxis, 10/21/15) peanut (Verified Allergy, Severe, Anaphylaxis, 10/21/15) also peanut butter perfume (Verified Allergy, Severe, Anaphylaxis, 10/21/15) shellfish derived (Verified Allergy, Severe, Anaphylaxis, 10/21/15) methocarbamol (Verified Allergy, Intermediate, 12/05/19) Pt states that this and all muscle relaxants cause her to feel "bad all over" and "aches all over." strawberry (Verified Adverse Reaction, Intermediate, Rash, 10/21/15) any kind of berries Family History: Family History: Reviewed with no relevant findings Social History: Social History: Smoking Status: Former Smoker Alcohol Use: None Drug Use: None Current Medications: Current Medications Current Medications Furosemide (Lasix) 40 mg DAILY IVP Last administered on 03/17/21at 23:01; Start 03/17/21 at 22:30 Active Scripts Active Eliquis (Apixaban) 5 Mg Tablet 10 Mg PO BID 30 Days 10 mg tab two times a day until 12/12/19. Eliquis (Apixaban) 5 Mg Tablet 5 Mg PO BID 30 Days Start 5 mg once a day on 12-13-2019 Percocet 5-325 Mg Tablet (Oxycodone/Acetaminophen) 1 Each Tablet 1 Tab PO PRN Q4HRS PRN Reported Oxycodone-Acetaminophen 10-325 (Oxycodone Hcl/Acetaminophen) 1 Each Tablet 10- 325 Mg PO PRN QID PRN Ventolin Hfa Inhaler (Albuterol Sulfate) 18 Gm Hfa.aer.ad 2 Puff INH QID Fenofibrate 54 Mg Tablet 1 Tab PO DAILY Advair 250-50 Diskus (Fluticasone/Salmeterol) 1 Each Disk.w.dev 1 Puff IH BID Glimepiride 1 Mg Tablet 1 Tab PO DAILY Atorvastatin Calcium 40 Mg Tablet 1 Tab PO QHS [hormone bj] Triamcinolone Acetonide 0.025% Cream (Triamcinolone Acetonide) 15 Gm Cream..g. 1 Sherie TP DAILY PRN Furosemide 40 Mg Tablet 40 Mg PO DAILY Metformin Hcl 500 Mg Tablet 1 Tab PO DAILYWBKFT Do not take for 48hours after procedure. Next dose evening dose 08/05/16 Coreg (Carvedilol) 3.125 Mg Tablet 3.125 Mg PO BID Triamterene-Hctz 37.5-25 Mg Tb (Triamterene/Hydrochlorothiazid) 1 Each Tablet 1 Tab PO DAILY ROS: Review of Systems Review of System REVIEW OF SYSTEMS: GENERAL: Denies weakness SKIN: No bruising, hair changes or rashes. EYES: No blurred, double or loss of vision. NOSE AND THROAT: No history of nosebleeds, hoarseness or sore throat. HEART: No history of palpitations, chest pain or shortness of breath on exertion. LUNGS: Positive for shortness of breath GASTROINTESTINAL: Denies changes in appetite, nausea, vomiting, diarrhea or constipation. GENITOURINARY: No history of frequency, urgency, hesitancy or nocturia. NEUROLOGIC: Denies history of numbness, tingling, or tremor. PSYCHIATRIC: No history of panic, anxiety or depression. ENDOCRINE: No history of heat or cold intolerance, polyuria or polydipsia. EXTREMITIES: Denies joint pain, pain on walking or stiffness. Physical Exam: Vital Signs: Vital Signs Date Time Temp Pulse Resp B/P (MAP) Pulse Ox O2 Delivery O2 Flow Rate FiO2 03/18/21 06:00 97.9 83 20 148/75 (99) 97 Room Air 97.9 Physcial Exam: General: Well developed, well nourished, no acute distress, well appearing HEENT: Pupils equally round and reactive to light, EOMI, no discharge, normal conjunctiva Neck: Supple, no nuchal rigidity, no JVD, trachea midline, no tenderness Cardiac: RRR, no murmurs, no gallops, no rubs Chest/Lungs: CTAB, no wheeze, no rhonchi, no crackles Abdomen: soft, non-distended, no guarding, no peritoneal signs, non-tender Back: No tenderness Extremities: Bilateral nonpitting pedal edema edema, pulses intact, non- tender,capillary refill <3 sec bilateral upper and lower extremities, Neuro: Alert and oriented x 4, no focal deficits, normal speech Labs: Labs: Laboratory Tests Test 03/17/21 21:51 03/17/21 22:20 03/18/21 01:36 White Blood Count 6.9 x10^3/uL (4.0-11.0) Red Blood Count 4.17 x10^6/uL (3.50-5.40) Hemoglobin 13.8 g/dL (12.0-15.5) Hematocrit 41.2 % (36.0-47.0) Mean Corpuscular Volume 99 fL (79-100) Mean Corpuscular Hemoglobin 33 pg (25-35) Mean Corpuscular Hemoglobin Concent 33 g/dL (31-37) Red Cell Distribution Width 14.0 % (11.5-14.5) Platelet Count 232 x10^3/uL (140-400) Neutrophils (%) (Auto) 59 % (31-73) Lymphocytes (%) (Auto) 29 % (24-48) Monocytes (%) (Auto) 10 % (0-9) Eosinophils (%) (Auto) 1 % (0-3) Basophils (%) (Auto) 0 % (0-3) Neutrophils # (Auto) 4.1 x10^3/uL (1.8-7.7) Lymphocytes # (Auto) 2.0 x10^3/uL (1.0-4.8) Monocytes # (Auto) 0.7 x10^3/uL (0.0-1.1) Eosinophils # (Auto) 0.1 x10^3/uL (0.0-0.7) Basophils # (Auto) 0.0 x10^3/uL (0.0-0.2) Sodium Level 146 mmol/L (136-145) Potassium Level 3.9 mmol/L (3.5-5.1) Chloride Level 108 mmol/L (98-107) Carbon Dioxide Level 25 mmol/L (21-32) Anion Gap 13 (6-14) Blood Urea Nitrogen 9 mg/dL (7-20) Creatinine 0.5 mg/dL (0.6-1.0) Estimated GFR (Cockcroft-Gault) 150.3 BUN/Creatinine Ratio 18 (6-20) Glucose Level 84 mg/dL (70-99) Calcium Level 8.6 mg/dL (8.5-10.1) Total Bilirubin 0.7 mg/dL (0.2-1.0) Aspartate Amino Transf (AST/SGOT) 15 U/L (15-37) Alanine Aminotransferase (ALT/SGPT) 30 U/L (14-59) Alkaline Phosphatase 71 U/L (46-116) Troponin I High Sensitivity 20 ng/L (4-50) 18 ng/L (4-50) QX-Yqz-Z-Type Natriuretic Peptide 1203 pg/mL (0-124) Total Protein 7.3 g/dL (6.4-8.2) Albumin 3.5 g/dL (3.4-5.0) Albumin/Globulin Ratio 0.9 (1.0-1.7) Influenza Type A Antigen Negative (NEGATIVE) Influenza Type B Antigen Negative (NEGATIVE) SARS-CoV-2 Antigen (Rapid) Negative (NEGATIVE) Laboratory Tests Test 03/17/21 21:51 03/17/21 22:20 03/18/21 01:36 White Blood Count 6.9 x10^3/uL (4.0-11.0) Red Blood Count 4.17 x10^6/uL (3.50-5.40) Hemoglobin 13.8 g/dL (12.0-15.5) Hematocrit 41.2 % (36.0-47.0) Mean Corpuscular Volume 99 fL (79-100) Mean Corpuscular Hemoglobin 33 pg (25-35) Mean Corpuscular Hemoglobin Concent 33 g/dL (31-37) Red Cell Distribution Width 14.0 % (11.5-14.5) Platelet Count 232 x10^3/uL (140-400) Neutrophils (%) (Auto) 59 % (31-73) Lymphocytes (%) (Auto) 29 % (24-48) Monocytes (%) (Auto) 10 % (0-9) Eosinophils (%) (Auto) 1 % (0-3) Basophils (%) (Auto) 0 % (0-3) Neutrophils # (Auto) 4.1 x10^3/uL (1.8-7.7) Lymphocytes # (Auto) 2.0 x10^3/uL (1.0-4.8) Monocytes # (Auto) 0.7 x10^3/uL (0.0-1.1) Eosinophils # (Auto) 0.1 x10^3/uL (0.0-0.7) Basophils # (Auto) 0.0 x10^3/uL (0.0-0.2) Sodium Level 146 mmol/L (136-145) Potassium Level 3.9 mmol/L (3.5-5.1) Chloride Level 108 mmol/L (98-107) Carbon Dioxide Level 25 mmol/L (21-32) Anion Gap 13 (6-14) Blood Urea Nitrogen 9 mg/dL (7-20) Creatinine 0.5 mg/dL (0.6-1.0) Estimated GFR (Cockcroft-Gault) 150.3 BUN/Creatinine Ratio 18 (6-20) Glucose Level 84 mg/dL (70-99) Calcium Level 8.6 mg/dL (8.5-10.1) Total Bilirubin 0.7 mg/dL (0.2-1.0) Aspartate Amino Transf (AST/SGOT) 15 U/L (15-37) Alanine Aminotransferase (ALT/SGPT) 30 U/L (14-59) Alkaline Phosphatase 71 U/L (46-116) Troponin I High Sensitivity 20 ng/L (4-50) 18 ng/L (4-50) TP-Bqh-F-Type Natriuretic Peptide 1203 pg/mL (0-124) Total Protein 7.3 g/dL (6.4-8.2) Albumin 3.5 g/dL (3.4-5.0) Albumin/Globulin Ratio 0.9 (1.0-1.7) Influenza Type A Antigen Negative (NEGATIVE) Influenza Type B Antigen Negative (NEGATIVE) SARS-CoV-2 Antigen (Rapid) Negative (NEGATIVE) Images: Images PROCEDURE: CHEST AP ONLY Exam: Chest one view INDICATION: Shortness of breath TECHNIQUE: Frontal view of the chest Comparisons: None FINDINGS: The cardiomediastinal silhouette and pulmonary vessels are within normal limits. The lung and pleural spaces are clear. IMPRESSION: No acute cardiopulmonary process. Assessment/Plan Assessment/Plan Hypertensive urgency Acute on chronic systolic CHF exacerbation, likely due to uncontrolled hypertension Dehydration Elevated BNP, possible volume overload Morbid obesity History of CHF with LVEF of 40% in January 2021 History of diabetes mellitus type 2 History of PE/DVT History of dyslipidemia History of hypertension History of JESSICA noncompliant with CPAP machine Morbid obesity Admit to hospitalist service for further management IV antihypertensive regimen as needed for systolic blood pressures greater than 180 Continue IV Lasix daily Strict I's and O's and monitor urine output Daily weights Sodium restriction Judicious IV fluid replacement considering CHF history Cardiology consult Resume Eliquis 5 mg twice daily R ISS and Accu-Cheks Nocturnal CPAP for JESSICA Continue Eliquis for DVT prophylaxis ADA diet CODE STATUS full Discussed with RN and SW Disposition inpatient management as above DPOA: Justifications for Admission Other Justification PER ABERNATHY MD Mar 18, 2021 08:12
[2021-03-18] MEDS: FUROSEMIDE 40 MG/4 ML VIAL. IVP SCH (08:13)
[2021-03-18] MEDS ORDERED: DOCUSATE SODIUM 100 MG CAPSULE. PO PRN (08:15)
[2021-03-18] MEDS ORDERED: DEXTROSE 50% 25 GM / 50ML DISP.SYRIN. IV PRN (08:15)
[2021-03-18] MEDS ORDERED: diphenhydrAMINE 50 MG/ML VIAL IVP PRN (08:15)
[2021-03-18] MEDS ORDERED: LORazepam 0.5 MG TABLET PO PRN (08:15)
[2021-03-18] MEDS ORDERED: hydrALAZINE 20 MG/ML VIAL. IVP PRN (08:15)
[2021-03-18] MEDS ORDERED: diphenhydrAMINE HCL 25 MG CAPSULE PO PRN ×2 (08:15)
[2021-03-18] MEDS ORDERED: ACETAMINOPHEN 325 MG TABLET. PO PRN (08:15)
[2021-03-18] MEDS ORDERED: IV NORMAL SALINE 1000ML BAG 1,000 ML IV SCH (08:15)
[2021-03-18] MEDS ORDERED: ZOLPIDEM 5 MG TABLET. PO PRN (08:15)
[2021-03-18] MEDS ORDERED: PROCHLORPERAZINE 10 MG/2 ML VIAL. IV PRN (08:15)
[2021-03-18] MEDS ORDERED: LABETALOL 20 MG/4 ML DISP.SYRIN. IVP PRN (08:15)
[2021-03-18] MEDS ORDERED: ONDANSETRON PF 4 MG/2 ML VIAL. IVP PRN (08:15)
[2021-03-18] MEDS ORDERED: SENNOSIDES 8.6 MG TABLET PO PRN (08:15)
--- NOTE | 2021-03-18 08:49 | NUR ---
pt also sees dr dow. lcrn
[2021-03-18] MEDS ORDERED: FLU VACC QUAD 21-22 (6MOS+) PF 0.5 ML SYRINGE. VAX IM ONE (09:00)
[2021-03-18] MEDS ORDERED: ENOXAPARIN 40 MG/0.4 ML SYRINGE. SQ SCH (09:00)
[2021-03-18] MEDS: FENOFIBRATE 54 MG TABLET. PO SCH (09:00)
[2021-03-18] MEDS ORDERED: CARVEDILOL 3.125 MG TABLET. PO SCH (09:00)
--- NOTE | 2021-03-18 10:35 | PDOC2 ---
LATONYA CAMPA COIL STRAPPER 03/18/21 1034: CARDIAC CONSULT DATE OF CONSULT Date of Consult DATE: 03/18/21 TIME: 09:57 REASON FOR CONSULT Reason for Consult: Dyspnea, elevated BNP REFERRING PHYSICIAN Referring Physician: Natalee SOURCE Source: Chart review, Patient HISTORY OF PRESENT ILLNESS HISTORY OF PRESENT ILLNESS This is a pleasant 65 yo female admitted for complains of shortness of breath. Denies any chest pain but her SOA has increased particularly with short distance ambulation. Reports increased leg swelling but no orthopnea or PND. She has JESSICA and has a machine to use but does not know how to operate it so she has not been utilizing this. Her SOA started since Thanksgiving admitting diet changes likely high Na diet but has decreased her fluid consumption. Denies any fever , chills, nausea or vomiting and no flu like symptoms. Denies any diarrhea, anosmia or ageusia. She has had her covid-19 booster vaccine. She takes lasix and has been compliant with her medications including eliquis but has not been checking her BP at home. Denies any dizziness or palpitations. PAST MEDICAL HISTORY Cardiovascular: CHF, HTN, Hyperlipidemia, Other (NICM, LE venous insufficiency with ablation) Pulmonary: Asthma, Pulmonary embolus, Other (JESSICA) CENTRAL NERVOUS SYSTEM: Other (No pertinent history) GI: GERD Heme/Onc: Other (remote LLE DVT) Musculoskeletal: Osteoarthritis Rheumatologic: No pertinent hx ENT: No pertinent hx Endocrine: Diabetes (2) PAST SURGICAL HISTORY Past Surgical History Cholecystectomy, Total knee replacement (right ), Hysterectomy, Other, No pertinent history (lumbar laminectomy, right breast lumpectomy ) FAMILY HISTORY Family History: Heart Disease SOCIAL HISTORY Smoke: Quit ALCOHOL: none Drugs: None Lives: with Family CURRENT MEDICATIONS CURRENT MEDICATIONS Current Medications Medications (Trade) Dose Ordered Sig/Nina Route PRN Reason Start Time Stop Time Status Last Admin Dose Admin Furosemide (Lasix) 40 mg DAILY IVP 03/17/21 22:30 03/18/21 08:13 Sodium Chloride 1,000 ml @ 100 mls/hr Q10H IV 03/18/21 08:15 03/18/21 08:15 Enoxaparin Sodium (Lovenox 40mg Syringe) 40 mg Q24H SQ 03/18/21 09:00 03/18/21 09:00 Carvedilol (Coreg) 3.125 mg BIDWMEALS PO 03/18/21 09:00 03/18/21 09:00 ALLERGIES ALLERGIES: Coded Allergies: [place] And Derivatives (Verified Allergy, Severe, Anaphylaxis, 10/21/15) Penicillins (Verified Allergy, Severe, anaphalaxis, 10/21/15) peanut (Verified Allergy, Severe, Anaphylaxis, 10/21/15) also peanut butter perfume (Verified Allergy, Severe, Anaphylaxis, 10/21/15) shellfish derived (Verified Allergy, Severe, Anaphylaxis, 10/21/15) methocarbamol (Verified Allergy, Intermediate, 12/05/19) Pt states that this and all muscle relaxants cause her to feel "bad all over" and "aches all over." strawberry (Verified Adverse Reaction, Intermediate, Rash, 10/21/15) any kind of berries ROS Review of System 14 point ROS evaluated with pertinent positives noted per HPI PHYSICAL EXAM General: Alert, Oriented X3, Cooperative, No acute distress HEENT: Atraumatic, Mucous membr. moist/pink Lungs: Clear to auscultation, Normal air movement Heart: Regular rate (SR with frequent PVCs), Normal S1, Normal S2 Abdomen: Soft, No tenderness Extremities: No cyanosis, Other (2+ bilateral LE pitting edema) Skin: No breakdown, No significant lesion Neuro: Normal speech, Sensation intact Psych/Mental Status: Mental status NL, Mood NL MUSCULOSKELETAL: Osteoarthritic changes both hands VITALS/I&O VITALS/I&O: Vital Signs Date Time Temp Pulse Resp B/P (MAP) Pulse Ox O2 Delivery O2 Flow Rate FiO2 03/18/21 09:00 83 148/75 03/18/21 08:00 Room Air 03/18/21 06:00 97.9 20 97 97.9 LABS Lab: Laboratory Tests Test 03/17/21 21:51 03/17/21 22:20 03/18/21 01:36 03/18/21 08:09 White Blood Count 6.9 x10^3/uL (4.0-11.0) Red Blood Count 4.17 x10^6/uL (3.50-5.40) Hemoglobin 13.8 g/dL (12.0-15.5) Hematocrit 41.2 % (36.0-47.0) Mean Corpuscular Volume 99 fL (79-100) Mean Corpuscular Hemoglobin 33 pg (25-35) Mean Corpuscular Hemoglobin Concent 33 g/dL (31-37) Red Cell Distribution Width 14.0 % (11.5-14.5) Platelet Count 232 x10^3/uL (140-400) Neutrophils (%) (Auto) 59 % (31-73) Lymphocytes (%) (Auto) 29 % (24-48) Monocytes (%) (Auto) 10 % (0-9) H Eosinophils (%) (Auto) 1 % (0-3) Basophils (%) (Auto) 0 % (0-3) Neutrophils # (Auto) 4.1 x10^3/uL (1.8-7.7) Lymphocytes # (Auto) 2.0 x10^3/uL (1.0-4.8) Monocytes # (Auto) 0.7 x10^3/uL (0.0-1.1) Eosinophils # (Auto) 0.1 x10^3/uL (0.0-0.7) Basophils # (Auto) 0.0 x10^3/uL (0.0-0.2) Sodium Level 146 mmol/L (136-145) H Potassium Level 3.9 mmol/L (3.5-5.1) Chloride Level 108 mmol/L (98-107) H Carbon Dioxide Level 25 mmol/L (21-32) Anion Gap 13 (6-14) Blood Urea Nitrogen 9 mg/dL (7-20) Creatinine 0.5 mg/dL (0.6-1.0) L Estimated GFR (Cockcroft-Gault) 150.3 BUN/Creatinine Ratio 18 (6-20) Glucose Level 84 mg/dL (70-99) Calcium Level 8.6 mg/dL (8.5-10.1) Total Bilirubin 0.7 mg/dL (0.2-1.0) Aspartate Amino Transferase (AST) 15 U/L (15-37) Alanine Aminotransferase (ALT) 30 U/L (14-59) Alkaline Phosphatase 71 U/L (46-116) Troponin I High Sensitivity 20 ng/L (4-50) 18 ng/L (4-50) JU-Ful-J-Type Natriuretic Peptide 1203 pg/mL (0-124) H Total Protein 7.3 g/dL (6.4-8.2) Albumin 3.5 g/dL (3.4-5.0) Albumin/Globulin Ratio 0.9 (1.0-1.7) L Influenza Type A Antigen Negative (NEGATIVE) Influenza Type B Antigen Negative (NEGATIVE) SARS-CoV-2 Antigen (Rapid) Negative (NEGATIVE) Glucose (Fingerstick) 110 mg/dL (70-99) H Laboratory Tests 03/17/21 21:51 Laboratory Tests 03/17/21 21:51 ECHOCARDIOGRAM ECHOCARDIOGRAM <Conclusion> The systolic function is moderately impaired. EF 40% Septal motion suggestive of conduction defect. There is moderate global hypokinesis. Technically difficult study. DATE: 02/04/21 [id number] HEART CATH HEART CATH A. RIGHT HEART CATHETERIZATION 1. Intracardiac Pressures: Mean right atrial pressure 8 mmHg, right ventricular pressure 43/6 mmHg, mean primary H pressure 12 mmHg, pulmonary artery pressure 34/18 mmHg, mean PA pressure 25 mm Hg. 2. Oxygen saturation: Right atrium 69%, pulmonary artery 68.6%, femoral arterial sheath 93.6%. No evidence of intracardiac shunt. 3. Cardiac output by thermodilution method 6.15 L/m. B. LEFT HEART CATHETERIZATION 1. Hemodynamics: Left ventricle end diastolic pressure 14 mmHg. No pullback gradient across the aortic valve. 2. Left ventriculography: Diaphragmatic wall hypokinesis with ejection fraction estimated at 40-45%. No significant mitral regurgitation seen. 3. Coronary angiography: a. The left main coronary artery arose from the left sinus of Valsalva, gave rise to the left anterior descending and left circumflex arteries and did not show any significant stenosis. b. The left anterior descending artery did not show any significant stenosis. c. The left circumflex artery was a large and dominant vessel that did not show any significant stenosis. d. The right coronary artery was a small and nondominant vessel that did not show any significant stenosis. Conclusion 1. No significant coronary artery disease. 2. Diaphragmatic wall hypokinesis with ejection fraction estimated at 40-45%. 3. No evidence of pulmonary hypertension or intracardiac shunt. Recommendations Cardiac Risk Reduction Program Medical Therapy DATE: 08/03/16 1249 ASSESSMENT/PLAN ASSESSMENT/PLAN 1. Acute on chronic systolic CHF: multifactorial with culprits below including diet changes with likely high Na 2. HTN urgency: does not check BP at home 3. JESSICA: has device but does not know how to utilize it 4. HLP 5. NICM: recent EF at 40% 6. Obesity 7. 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 Arrhythmia: appears to high PVC burden 9. DM2 Recommendations 1. Lasix therapy. Check BMP and Mg and will replace K and Mg as warranted 2. She takes flecainide for PVC suppression and will need alternative to this especially with her CM issues. Will discuss with primary candle making supervisor 3. Family will bring her CPAP for further education so she can start utilizing this art home per RT 4. Discussed low salt diet and 2L FR. 5. Continue eliquis 6. Continue secondary prevention measures and BP regimen. Change coreg to toprol. Consider outpt entresto and jardiance 7. HBPM 8. She will need to further follow up with EP as an outpt ROBERTO SHAIKH MD 03/18/21 1726: CARDIAC CONSULT ASSESSMENT/PLAN ASSESSMENT/PLAN Patient seen and examined. Agree with PHYSICAL THERAPY ASSISTANT INSTRUCTOR's assessment and plan. Continue diuresis for acute on chronic systolic heart failure. We will titrate antihypertensives for better blood pressure control. Will reevaluate PVC burden once better compensated and consider changing flecainide to Multaq and referral to EP service Thank you for your consultation LATONYA CAMPA APRN Mar 18, 2021 10:34 ROBERTO SHAIKH MD Mar 18, 2021 17:26
[2021-03-18 10:41] VITALS: BP 117/59
--- NOTE | 2021-03-18 12:07 | EKG ---
[facility] [address] [place] [address] Test Date: 2021-03-17 Test Time: 21:33:21 Pat Name: ANNA POST Department: Room: [facility] Gender: F Doctor Of Podiatric Medicine: : 1955 Requested By: GIO FERREIRA Order Number: [id number] Reading MD: Danny Ahn Measurements Intervals [place] Rate: 82 P: 91 VA: 148 QRS: 32 QRSD: 90 T: 78 QT: 394 QTc: 464 Interpretive Statements SINUS RHYTHM T ABNORMALITY IN HIGH LATERAL LEADS Electronically Signed On 03-22-2021 16:19:58 APPLICATIONS DEVELOPMENT ANALYST by Danny Ahn
[2021-03-18] MEDS: INSULIN LISPRO 300 UNITS/3 ML VIAL. SQ SCH ×2 (13:10→16:56)
--- NOTE | 2021-03-18 13:22 | NUR ---
SS following for discharge planning. SS reviewed pt chart and discussed with pt RN. Pt is from home with spouse and is currently on room air. Cardiology consulted. Pt on IV Lasix. COVID19 negative. SS will continue to follow for discharge planning.
[2021-03-18] MEDS ORDERED: ANTI-COAG MONITOR BY PHARMACY. MC PRN (13:30)
[2021-03-18] MEDS: METOPROLOL SUCC 24HR ER 50 MG TAB.ER.24H. PO SCH (14:00)
[2021-03-18 14:09] VITALS: BP 120/60
[2021-03-18 14:53] LABS: CALCIUM 8.4 mg/dL (8.5-10.1); CREATININE 0.7 mg/dL (0.6-1.0); GFR 101.9; POTASSIUM 3.5 mmol/L (3.5-5.1)
[2021-03-18 19:00] VITALS: BP 128/60
[2021-03-18] MEDS: APIXABAN 5 MG TABLET. PO SCH (19:51)
[2021-03-18] MEDS ORDERED: ATORVASTATIN CALCIUM 40 MG TABLET. PO SCH (21:00)
[2021-03-18 23:00] VITALS: BP 128/64
[2021-03-19 02:35] VITALS: BP 120/56
[2021-03-19 05:42] LABS: BASO % 1 % (0-3); EOS # 0.1 x10^3/uL (0.0-0.7); EOS % 2 % (0-3); HEMATOCRIT 39.7 % (36.0-47.0); HEMOGLOBIN 13.2 g/dL (12.0-15.5); LYMPH # 2.2 x10^3/uL (1.0-4.8); LYMPH % 36 % (24-48); MEAN CORPUSCULAR HEMOGLOBIN 33 pg (25-35); MEAN CORPUSCULAR HGB CONC 33 g/dL (31-37); MEAN CORPUSCULAR VOLUME 100 fL (79-100); MONO # 0.7 x10^3/uL (0.0-1.1); MONO % 11 % (0-9); NEUT # 3.1 x10^3/uL (1.8-7.7); NEUT % 51 % (31-73); PLATELET COUNT 221 x10^3/uL (140-400); RED BLOOD COUNT 3.99 x10^6/uL (3.50-5.40); RED CELL DISTRIBUTION WIDTH 14.1 % (11.5-14.5); WHITE BLOOD COUNT 6.1 x10^3/uL (4.0-11.0)
[2021-03-19 06:05] LABS: CALCIUM 8.1 mg/dL (8.5-10.1); CREATININE 0.5 mg/dL (0.6-1.0); GFR 150.3; PHOSPHORUS 4.1 mg/dL (2.6-4.7); POTASSIUM 3.9 mmol/L (3.5-5.1)
[2021-03-19 07:22] VITALS: BP 152/67
[2021-03-19] MEDS: INSULIN LISPRO 300 UNITS/3 ML VIAL. SQ SCH ×2 (08:00→12:00)
[2021-03-19] MEDS: APIXABAN 5 MG TABLET. PO SCH (08:12)
[2021-03-19] MEDS: FENOFIBRATE 54 MG TABLET. PO SCH (08:13)
[2021-03-19] MEDS: METOPROLOL SUCC 24HR ER 50 MG TAB.ER.24H. PO SCH (08:13)
[2021-03-19] MEDS: FUROSEMIDE 40 MG/4 ML VIAL. IVP SCH (08:18)
[2021-03-19 10:24] VITALS: BP 132/58
[2021-03-19] MEDS ORDERED: DRONEDARONE HCL 400 MG TABLET PO SCH (11:45)
--- NOTE | 2021-03-19 11:54 | PDOC ---
LATONYA CAMPA PLANT SCIENCES PROFESSOR 03/19/21 1154: CARDIO Progress Notes Date and Time Date of Service 03/19/2021 Time of Evaluation 1100 Subjective Subjective: No Chest Pain, No shortness of breath, No Palpitations Vitals Vitals Vital Signs Date Time Temp Pulse Resp B/P (MAP) Pulse Ox O2 Delivery O2 Flow Rate FiO2 03/19/21 10:24 98.3 88 18 132/58 (82) 97 Room Air 98.3 Weight Weight [ ] Input and Output Intake and Output Intake and Output 03/19/21 07:00 Intake Total 640 ml Balance 640 ml Intake Oral 640 ml # Voids 2 Laboratory Labs Laboratory Tests Test 03/18/21 13:58 03/18/21 16:42 03/18/21 20:28 03/19/21 04:15 Sodium Level 144 mmol/L (136-145) 144 mmol/L (136-145) Potassium Level 3.5 mmol/L (3.5-5.1) 3.9 mmol/L (3.5-5.1) Chloride Level 105 mmol/L (98-107) 107 mmol/L (98-107) Carbon Dioxide Level 28 mmol/L (21-32) 28 mmol/L (21-32) Anion Gap 11 (6-14) 9 (6-14) Blood Urea Nitrogen 14 mg/dL (7-20) 13 mg/dL (7-20) Creatinine 0.7 mg/dL (0.6-1.0) 0.5 mg/dL (0.6-1.0) Estimated GFR (Cockcroft-Gault) 101.9 150.3 Glucose Level 141 mg/dL (70-99) 98 mg/dL (70-99) Calcium Level 8.4 mg/dL (8.5-10.1) 8.1 mg/dL (8.5-10.1) Magnesium Level 2.0 mg/dL (1.8-2.4) 2.0 mg/dL (1.8-2.4) Glucose (Fingerstick) 132 mg/dL (70-99) 151 mg/dL (70-99) White Blood Count 6.1 x10^3/uL (4.0-11.0) Red Blood Count 3.99 x10^6/uL (3.50-5.40) Hemoglobin 13.2 g/dL (12.0-15.5) Hematocrit 39.7 % (36.0-47.0) Mean Corpuscular Volume 100 fL (79-100) Mean Corpuscular Hemoglobin 33 pg (25-35) Mean Corpuscular Hemoglobin Concent 33 g/dL (31-37) Red Cell Distribution Width 14.1 % (11.5-14.5) Platelet Count 221 x10^3/uL (140-400) Neutrophils (%) (Auto) 51 % (31-73) Lymphocytes (%) (Auto) 36 % (24-48) Monocytes (%) (Auto) 11 % (0-9) Eosinophils (%) (Auto) 2 % (0-3) Basophils (%) (Auto) 1 % (0-3) Neutrophils # (Auto) 3.1 x10^3/uL (1.8-7.7) Lymphocytes # (Auto) 2.2 x10^3/uL (1.0-4.8) Monocytes # (Auto) 0.7 x10^3/uL (0.0-1.1) Eosinophils # (Auto) 0.1 x10^3/uL (0.0-0.7) Basophils # (Auto) 0.0 x10^3/uL (0.0-0.2) Phosphorus Level 4.1 mg/dL (2.6-4.7) Test 03/19/21 07:27 03/19/21 11:22 Glucose (Fingerstick) 114 mg/dL (70-99) 122 mg/dL (70-99) Physical Exam HEENT: Neck Supple W Full Motion Chest: Symmetric LUNGS: Clear to Auscultation Heart: S1S2, RRR (SR) Abdomen: Soft N/T Extremities: No Calf Tenderness, Other (2+ bilateral LE pitting edema) Neurology: alert, oriented, follow commands Assessment Assessment 1. Acute on chronic systolic CHF: multifactorial with culprits below including diet changes with likely high Na. better compensated 2. HTN urgency: better controlled 3. JESSICA: has device but does not know how to utilize it 4. HLP 5. NICM: recent EF at 40% 6. Obesity 7. 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 Arrhythmia: appears to high PVC burden 9. DM2 Recommendations 1. Lasix therapy 2. DC flecainide and start on multaq 3. CPAP adherance, RT to educate. 6 min walk today 4. Discussed low salt diet and 2L FR. 5. Continue eliquis 6. Continue secondary prevention measures and BP regimen. Change coreg to toprol. Consider outpt entresto and jardiance 7. HBPM 8. She will need to further follow up with EP as an outpt 9. Follow up in office as scheduled. anticipate DC today Justicifation of Admission Dx: Justifications for Admission: Justification of Admission Dx: N/A Acute COPD Exacerbation: Acute COPD Exacerbation [place]: Acute NSTEMI ROBERTO SHAIKH MD 03/19/21 1515: CARDIO Progress Notes Assessment Assessment Patient seen and examined. Agree with SENIOR INTERACTION DESIGNER's assessment and plan. Acute on chronic systolic heart failure better compensated Blood pressure better controlled Change flecainide to Multaq for frequent PVCs. We will consider EP referral as an outpatient. LATONYA CAMPA APRN Mar 19, 2021 11:54 ROBERTO SHAIKH MD Mar 19, 2021 15:15
[2021-03-19] MEDS ORDERED: POTASSIUM CHLORIDE 20 MEQ TABLET.ER. PO ONE (12:00)
[2021-03-19] MEDS ORDERED: FUROSEMIDE 40 MG TABLET. PO SCH (12:00)
[2021-03-19] MEDS ORDERED: DRON400T6 PO (12:45)
[2021-03-19] MEDS ORDERED: APIX5TAB PO (12:45)
[2021-03-19] MEDS ORDERED: METO50TA4 PO (12:45)
--- NOTE | 2021-03-19 12:47 | DISCH ---
DISCHARGE INSTRUCTIONS Condition on Discharge Condition on Discharge: Stable Activity After Discharge Activity Instructions for Disc: Activity as tolerated Bathing Instructions: Shower-keep dressing dry, No Tub Bath until see Lifting Instructions after Dis: No heavy lifting, No pulling or pushing, Do not lift >10 pounds Exercise Instruction after Dis: Exercise per therapy Driving Instructions after Dis: No driving for 2 weeks Weight Bearing Status after Di: No restrictions, Full weight bearing, As tolerated Diet after Discharge Diet after Discharge: Cardiac Additional Diet Restrictions: resume home diet Diet Texture: Regular Liquid Texture: Thin Liquid Swallowing Supervision: None needed Wound Incision Care Wound/Incision Care: Ice to area for comfort, Keep wound/cast CDI, Change dressing Wound Care Equipment: Dressings Checks after Discharge Checks after discharge: Check blood press - daily, Check blood sugar, ac/hs Contacting the DRManohar after DC Call your doctor for: Concerns you may have Follow-Up Follow up with: PCP within 2 weeks of discharge Follow Up With: Cardiology as scheduled or as needed Treatment/Equipment after DC Adaptive Equipment Issued: None Discharge Respiratory Equipmen: Oxygen PER ABERNATHY MD Mar 19, 2021 12:47
[2021-03-19 14:43] VITALS: BP 125/69
[2021-03-20] MEDS ORDERED: POTASSIUM CHLORIDE 10 MEQ TABLET.ER. PO SCH (08:00)
--- NOTE | 2021-03-20 14:02 | PDOC3 ---
[facility]-Discharge Summary Date of Admission: Date of Admission: Mar 18, 2021 Date of Discharge: Date of Discharge: Mar 19, 2021 Consults: Consults: Per cardiology: Assessment 1. Acute on chronic systolic CHF: multifactorial with culprits below including diet changes with likely high Na. better compensated 2. HTN urgency: better controlled 3. JESSICA: has device but does not know how to utilize it 4. HLP 5. NICM: recent EF at 40% 6. Obesity 7. 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 Arrhythmia: appears to high PVC burden 9. DM2 Recommendations 1. Lasix therapy 2. DC flecainide and start on multaq 3. CPAP adherance, RT to educate. 6 min walk today 4. Discussed low salt diet and 2L FR. 5. Continue eliquis 6. Continue secondary prevention measures and BP regimen. Change coreg to toprol. Consider outpt entresto and jardiance 7. HBPM 8. She will need to further follow up with EP as an outpt 9. Follow up in office as scheduled. anticipate DC today Hospital Course: Hospital Course: 65-year-old female with significant past medical history of diabetes mellitus type 2, DVT/PE, dyslipidemia, hypertension, systolic CHF who comes in with shortness of breath since . She was trying to not come to the hospital or be evaluated and try to just get through the holidays. It progressively became worse and worse with exertion. Patient does endorse orthopnea. Patient did get a dose of IV Lasix in the emergency department and her symptoms have improved. Patient does also complain of left lower extremity swelling and heaviness. Denies fevers, nausea vomiting, chest pain, abdominal pain, dysuria, hematuria or diarrhea or constipation. Patient was evaluated by cardiology and diuresed appropriately. Her symptoms improved and she was breathing well on room air without any oxygen. 6-minute walk test was completed and no home O2 requirements were needed. Rest of hospital course was uneventful. Disposition: Disposition/Orders: D/C to Home Activity: Activity: Resume previous activity Diet: Diet: Cardiac Medications: Home Meds Active Scripts Metoprolol Succinate (Toprol XL) 50 Mg Tab.er.24h, 50 MG PO DAILY for chf for 30 Days, #30 TAB.SR 2 Refills Prov:PER ABERNATHY MD 03/19/21 Dronedarone Hcl (MULTAQ) 400 Mg Tablet, 400 MG PO BIDWMEALS for chf for 30 Days, #60 TAB 2 Refills Prov:PER ABERNATHY MD 03/19/21 Apixaban (ELIQUIS) 5 Mg Tablet, 5 MG PO BID for atrial fibrillation for 30 Days, #60 TAB 2 Refills Prov:PER ABERNATHY MD 03/19/21 Oxycodone/Apap 5-325 (PERCOCET 5-325 MG TABLET ) 1 Each Tablet, 1 TAB PO PRN Q4HRS PRN for MILD PAIN, 1ST CHOICE, #40 TAB Prov:BETZY LARRY MD 11/08/19 Reported Medications Oxycodone Hcl/Acetaminophen (OXYCODONE-ACETAMINOPHEN 10-325) 1 Each Tablet, 10- 325 MG PO PRN QID PRN for PAIN 12/06/19 Albuterol Sulfate (VENTOLIN HFA INHALER) 18 Gm Hfa.aer.ad, 2 PUFF INH QID for FOR ASTHMA, INHALER 0 Refills 12/05/19 Fenofibrate (FENOFIBRATE) 54 Mg Tablet, 1 TAB PO DAILY for HLD, #30 TAB 5 Refills 12/05/19 Glimepiride (GLIMEPIRIDE) 1 Mg Tablet, 1 TAB PO DAILY for DM, #30 TAB 5 Refills 12/05/19 Atorvastatin Calcium (ATORVASTATIN CALCIUM) 40 Mg Tablet, 1 TAB PO QHS for HLD, #90 TAB 3 Refills 12/05/19 [hormone bj] No Conflict Check 08/03/16 Triamcinolone Acetonide (TRIAMCINOLONE ACETONIDE 0.025% CREAM) 15 Gm Cream..g., 1 LIGIA TP DAILY PRN for RASH, TUBE 01/10/15 Furosemide (FUROSEMIDE) 40 Mg Tablet, 40 MG PO DAILY for DIURETIC, TAB 01/10/15 Metformin Hcl (METFORMIN HCL) 500 Mg Tablet, 1 TAB PO DAILYWBKFT for DIABETES, #180 TAB 3 Refills Do not take for 48hours after procedure. Next dose evening dose 08/05/16 01/10/15 Discontinued Reported Medications Fluticasone/Salmeterol (ADVAIR 250-50 DISKUS) 1 Each Disk.w.dev, 1 PUFF IH BID for asthma, #3 INHALER 3 Refills 12/05/19 Carvedilol (COREG ) 3.125 Mg Tablet, 3.125 MG PO BID for HEART, TAB 01/17/14 Triamterene/Hydrochlorothiazid (TRIAMTERENE-HCTZ 37.5-25 MG TB) 1 Each Tablet, 1 TAB PO DAILY for BLOOD PRESSURE, TAB 01/17/14 Discontinued Scripts Apixaban (ELIQUIS) 5 Mg Tablet, 10 MG PO BID for heart for 30 Days, #30 TAB 10 mg tab two times a day until 12/12/19. Prov:CASTLE,NIAL K III DO 12/07/19 Apixaban (ELIQUIS) 5 Mg Tablet, 5 MG PO BID for heart for 30 Days, #60 TAB Start 5 mg once a day on 12-13-2019 Prov:CASTLE,NIAL K III DO 12/07/19 Scheduled Albuterol Sulfate (Ventolin Hfa Inhaler), 2 PUFF INH QID, (Reported) Apixaban (Eliquis), 5 MG PO BID Atorvastatin Calcium (Atorvastatin Calcium), 1 TAB PO QHS, (Reported) Dronedarone Hcl (Multaq), 400 MG PO BIDWMEALS Fenofibrate (Fenofibrate), 1 TAB PO DAILY, (Reported) Furosemide (Furosemide), 40 MG PO DAILY, (Reported) Glimepiride (Glimepiride), 1 TAB PO DAILY, (Reported) Metformin Hcl (Metformin Hcl), 1 TAB PO DAILYWBKFT, (Reported) Metoprolol Succinate (Toprol XL), 50 MG PO DAILY Scheduled PRN Oxycodone Hcl/Acetaminophen (Oxycodone-Acetaminophen 10-325), 10-325 MG PO PRN QID PRN for PAIN, (Reported) Oxycodone/Apap 5-325 (Percocet 5-325 Mg Tablet ), 1 TAB PO PRN Q4HRS PRN for MILD PAIN, 1ST CHOICE Triamcinolone Acetonide (Triamcinolone Acetonide 0.025% Cream), 1 LIGIA TP DAILY PRN for RASH, (Reported) Miscellaneous Medications [hormone bj], (Reported) Discontinued Medications Apixaban (Eliquis), 5 MG PO BID Apixaban (Eliquis), 10 MG PO BID Carvedilol (Coreg ), 3.125 MG PO BID, (Reported) Fluticasone/Salmeterol (Advair 250-50 Diskus), 1 PUFF IH BID, (Reported) Triamterene/Hydrochlorothiazid (Triamterene-Hctz 37.5-25 Mg Tb), 1 TAB PO DAILY, (Reported) Total Time: Total Time: Total time spent was 34 minutes in preparing scripts, discharge planning with SWI and RN and preparing this discharge summary Patient seen and examined on day of discharge. No acute abnormal findings. Justicifation of Admission Dx: Justifications for Admission: Justification of Admission Dx: N/A Acute COPD Exacerbation: Acute COPD Exacerbation [place]: Acute NSTEMI PER ABERNATHY MD Mar 20, 2021 14:02
== END 2021-03-19 15:05 | disposition home or self-care (01) | DRG 291 ==
LOC: ER 16:10 → 6 SOUTH 03-18 02:54
PROVIDERS: ADMIT Student in an Organized Health Care Education/Training Program; ATTEND Student in an Organized Health Care Education/Training Program
DX: I11.0 Hypertensive heart disease with heart failure (principal); I50.23 Acute on chronic systolic (congestive) heart failure; I27.82 Chronic pulmonary embolism; I42.8 Other cardiomyopathies; E11.9 Type 2 diabetes mellitus without complications; E66.01 Morbid (severe) obesity due to excess calories; E78.00 Pure hypercholesterolemia, unspecified; E78.5 Hyperlipidemia, unspecified; E86.0 Dehydration; G47.33 Obstructive sleep apnea (adult) (pediatric); I16.0 Hypertensive urgency; I49.3 Ventricular premature depolarization; J45.909 Unspecified asthma, uncomplicated; Z79.01 Long term (current) use of anticoagulants; Z86.718 Personal history of other venous thrombosis and embolism; Z87.891 Personal history of nicotine dependence; Z90.710 Acquired absence of both cervix and uterus; Z91.19 Patient's noncompliance with other medical treatment and regimen; Z96.651 Presence of right artificial knee joint; K21.9 Gastro-esophageal reflux disease without esophagitis; M19.90 Unspecified osteoarthritis, unspecified site; Z88.0 Allergy status to penicillin; Z88.2 Allergy status to sulfonamides; Z88.8 Allergy status to other drugs, medicaments and biological substances; Z90.49 Acquired absence of other specified parts of digestive tract; I48.91 Unspecified atrial fibrillation
CPT/HCPCS: 36415; 71045; 80048; 80053; 82962; 83735; 83880; 84100; 84484; 85025; 87426; 87804; 93005; 94618; G0379; J1650; J1815; J1940; J7030; U0003; U0005; 99285-25

== ENCOUNTER → 2021-03-17 | Outpatient (CLI) | payer MEDICARE, OTHER ==
[~2021-03-17] MED LIST changes: +IOHEXOL 350 MG/ML 100 ML VIAL. IV ONE
[2021-03-17 14:39] LABS: CREATININE 0.6 mg/dL (0.6-1.0); GFR 121.8
--- NOTE | 2021-03-17 15:29 | RAD ---
CTA CHEST History: Dyspnea on eloquis. Rule out PE. Comparison: CT PE 09/29/2020, 02/18/2020. Technique: CTA of the pulmonary arteries with intravenous contrast. 3-D postprocessing was performed. Findings: Pulmonary arteries: Chronic occlusion of the right upper lobe pulmonary artery and linear opacities i n the left lower lobar pulmonary artery which is nonocclusive appear similar to September 2020 comparison. No acute pulmonary embolism identified. Aorta and great vessels: No aneurysm or dissection of the aortic arch or thoracic aorta. Thyroid: No significant abnormalities. Mediastinum and abdullahi: No mediastinal masses or adenopathy is seen. Esophagus: The visualized esophagus is normal. Heart: The heart is normal in size. There is no pericardial effusion. Airways, Lungs, Pleura: The airways are clear. There is chronic groundglass opacities in the right up per lobe, suspected to be related to chronic perfusion abnormality. Patchy right lower lobe atelectat ic scarring also appears similar to prior. No acute airspace consolidation. No pleural effusion or pn eumothorax. Upper abdomen: Limited evaluation of the upper abdomen is unremarkable. Osseous structures and soft tissues: Within normal limits for age. Impression: 1. No acute pulmonary embolism, aortic aneurysm or aortic dissection. Chronic occlusion of the right upper lobe pulmonary artery and linear nonocclusive thrombus in the right lower lobar pulmonary paige ry. 2. Unchanged appearance of right upper lobe groundglass opacities in right lower lobe atelectatic sc arring, likely related to prior pulmonary emboli. 3. No acute airspace consolidation. ------ Exposure: One or more of the following individualized dose reduction techniques were utilized for thi s examination: 1. Automated exposure control 2. Adjustment of the mA and/or kV according to patient size 3. Use of iterative reconstruction technique. Electronically signed by: Jono Almazan MD (03/17/2021 3:27 PM) [facility]
== END ==
LOC: CT 13:58
PROVIDERS: ATTEND Internal Medicine Critical Care Medicine
DX: I27.82 Chronic pulmonary embolism (principal); R91.8 Other nonspecific abnormal finding of lung field; R06.00 Dyspnea, unspecified
CPT/HCPCS: 36415; 71275; 82565; 84520; Q9967